=== PATIENT | male | born 1965 | race African-American/Black ===

== ENCOUNTER 2020-02-06 10:41 | Outpatient (CLI) | payer BC, SELFPAY ==
[2020-02-06 11:35] LABS: Basophils Percent Auto 0.7 % (0.2-1.2); Eosinophils Absolute Auto 0.1 K/mm3 (0-0.3); Eosinophils Percent Auto 1.8 % (0-4.4); Hematocrit 34.9 % (42.0-52.0); Hemoglobin 11.2 g/dL (14.0-18.0); Immature Granulocyte Absolute 0.01 K/mm3 (0.00-0.031); Immature Granulocyte Percent A 0.2 % (0-0.5); Lymphocytes Absolute Auto 1.17 K/mm3 (0.9-3.2); Lymphocytes Percent Auto 26.5 % (18.3-44.2); Mean Corpuscular HGB Conc 32.1 g/dl (32-36); Mean Corpuscular Hemoglobin 29.5 pg (26-34); Mean Corpuscular Volume 91.8 fl (80-100); Mean Platelet Volume 12.4 fl (7.4-10.4); Monocytes Absolute Auto 0.6 K/mm3 (0.1-0.6); Monocytes Percent Auto 12.9 % (2.6-8.5); Neutrophils Absolute Auto 2.6 K/mm3 (1.3-6.7); Neutrophils Percent Auto 57.9 % (45.5-73.1); Platelet Count Result 151 k/mm3 (150-375); Red Cell Distribution Width 14.1 % (11.5-14.5); White Blood Count 4.4 K/mm3 (4.5-10.0)
[2020-02-06 11:48] LABS: Alanine Aminotransferase 16 U/L (4-50); Alkaline Phosphatase 99 U/L (38-126); Anion Gap 7 mmol/L (8-16); Aspartate Amino Transferase 20 U/L (17-59); Bilirubin,Total 0.5 mg/dL (0.2-1.3); Blood Urea Nitrogen 71 mg/dL (9-20); Calcium 9.3 mg/dL (8.4-10.2); Carbon Dioxide 25 mmol/L (22-30); Chloride 108 mmol/L (98-107); Estimated Glomerular Filt Rate 38; Glucose 119 mg/dL (75-110); Potassium 4.9 mmol/L (3.4-5.0); Sodium 140 mmol/L (137-145)
== END 2020-02-06 10:42 | disposition home or self-care (01) ==
PROVIDERS: Visit Provider Internal Medicine Cardiovascular Disease
DX: I42.8 Other cardiomyopathies (principal)
CPT/HCPCS: 36415; 80053; 85025

== ENCOUNTER 2022-05-03 17:13 | Inpatient (IN) | payer BC, SELFPAY ==
[2022-05-03] VITALS (41 sets, daily range): BP systolic 119–179; BP diastolic 11–99; PULSE 62–95; RESP 14–25; TEMP 36.7–36.8; O2SAT 63–100
--- NOTE | ~2022-05-03 | CT_ITS ---
EXAMINATION: CTA chest PE protocol DATE: 05/03/2022 21:58 INDICATION: hypoxia, SOB TECHNIQUE: Computed tomography angiography (CTA) of the chest was performed with 100 mL Omnipaque-350 intravenous contrast timed to evaluate the pulmonary arteries. Coronal maximum intensity projection 3D-reconstructions were created by the technologist. The dose-length product (DLP) was 1066.65 mGy-cm . Automated exposure control and iterative reconstruction technique were employed. COMPARISON: None. FINDINGS: Lung parenchyma and airways: Significant motion artifact. Diffuse bilateral areas of groundglass opac ity with some areas of sparing. Interlobular septal thickening. Dependent atelectasis. Pleura: Moderate right and small left pleural fluid collections. Thoracic inlet, axillae and chest wall: Left chest pacer/fibrillator, with intact leads. Marked bilat eral gynecomastia. Subcutaneous edema in the chest. Thoracic aorta: Mild ectasia and arch calcification. Mediastinum: Dilated central pulmonary arteries, as can be seen with pulmonary arterial hypertension. Heart and pericardium: Marked cardiomegaly. Coronary artery calcifications: Mild. Upper abdomen: No significant finding. Bones: No acute osseous finding. Pulmonary arteries: Study quality: Mildly limited by motion artifact but overall diagnostic. No pulmo nary emboli detected. IMPRESSION: No CT evidence of acute pulmonary embolus. Marked cardiomegaly. Pulmonary edema. Reviewed, dictated and finalized at location [facility] IMPRESSION: No CT evidence of acute pulmonary embolus. Marked cardiomegaly. Pulmonary edema .
--- NOTE | 2022-05-03 17:39 | ECG_ITS ---
Measurements Intervals [place] Rate: 77 P: [place]: 0 QRS: -24 QRSD: 126 T: 101 QT: 384 QTc: 435 Interpretive Statements ATRIAL FIBRILLATION INCOMPLETE LEFT BUNDLE BRANCH BLOCK BORDERLINE ST-T WAVE ABNORMALITY- LAT/HIGH LAT LEADS ABNORMAL ECG NO PREVIOUS ECG AVAILABLE FOR COMPARISON Electronically Signed On 05-04-2022 6:48:19 PLATING TECHNICIAN by Daniel Mott D.O.
--- NOTE | 2022-05-03 17:39 | ED.GENADULT ---
HPI - General Adult General Chief complaint: Weakness Stated complaint: not able to care for self - low pulse ox Time Seen by Provider: 05/03/22 17:24 History of Present Illness HPI narrative: Patient is a 56-year-old male with a history of CHF, COPD, diabetes, HTN here for evaluation after a fall today. Patient was discharged from a rehab facility today where he resided for several weeks for care of wounds to his left lower extremity and coccyx. States he was discharged because of insurance coverage being denied. Shortly after getting back home, patient was attempting to stand up to go to the bathroom, felt weak in his lower extremities, causing him to fall down. Has not had his head or lose consciousness. Required EMS assistance, was brought to the hospital due to low oxygen sats in the 70s. He has no home oxygen requirement. Patient states that he has been coughing for few days but denies any shortness of breath, chest pain, fevers or chills. No abdominal pain, nausea, vomiting. Patient has a history of DVT and is on Coumadin. His computer network engineer is Dr. Melgoza. Related Data Allergies Allergy/AdvReac Type Severity Reaction Status Date / Time heparin Allergy Severe Other Verified 01/20/18 08:47 EGG SUBSTITUTE AdvReac Intermediate Itching Uncoded 01/20/18 08:47 Review of Systems Review of Systems: Gen.: Reports weakness. Denies fevers or chills Eyes: Denies eye pain or visual change ENT: Denies congestion Respiratory: Denies shortness of breath or cough CV: Denies chest pain or palpitations GI: Denies abdominal pain nausea, emesis or diarrhea denies burning, urgency, frequency or hematuria Musculoskeletal: Denies back pain or muscle pain Neuro: Denies numbness, tingling, weakness or focal weakness Skin: Reports wounds to left lower extremity and coccyx. Except as documented, all other systems reviewed and negative Exam Narrative: APPEARANCE: Chronically ill-appearing, obese Head: Normocephalic and atraumatic. EYES: PERRLA/EOMI, conjunctivae clear NOSE: No nasal drainage EARS: External ear normal in appearance THROAT: Oropharynx is clear. Mucous membranes are moist. NECK: Supple. No adenopathy, no masses. RESPIRATORY: Coughing throughout exam. Airway patent, respirations nonlabored. Clear to auscultation bilaterally, no rales, rhonchi, wheezing. CARDIOVASCULAR: Regular rate and rhythm without murmurs, rubs, or gallops. ABDOMINAL: Normoactive bowel sounds. Soft, nontender, nondistended. No rebound tenderness or guarding. MUSCULOSKELETAL: Nonpitting edema to bilateral lower extremities. Moves all extremities well. NEURO: Normal speech. No focal neurologic deficits. SKIN: Patient has a 2 x 3 cm wound to his left medial malleolus with no drainage and no surrounding erythema. Venous stasis changes to left lower extremity. Thickened toenails. PSYCHIATRIC: Normal affect/mood. Course Vital Signs Vital signs: Vital Signs Pulse Rate 80 05/03/22 17:33 Respiratory Rate 14 05/03/22 17:33 Blood Pressure 157/98 H 05/03/22 17:33 Pulse Oximetry 63 L 05/03/22 17:33 Temperature 97.3 F L 05/04/22 00:00 Pulse Rate 86 05/04/22 00:00 Respiratory Rate 16 05/04/22 00:00 Blood Pressure 158/98 H 05/04/22 00:00 Pulse Oximetry 96 05/04/22 00:00 Oxygen Delivery Room Air 05/03/22 17:34 Procedures Other Procedure Procedure 1: Other Procedure: ultrasound guided IV x 2 by MD Hurtado at 20:00, 05/03/2022 Medical Decision Making MDM Narrative Medical decision making narrative: 56-year-old male brought in by EMS for weakness after being discharged from his rehab facility today. Patient was admitted to the rehab facility for wound care and physical therapy. Here patient appears older than stated age and is chronically ill-appearing but nontoxic. He has chronic wounds to his left medial malleolus and coccyx that do not appear overtly infected. He is hypertensive, satting at the high 80s on room air and pat
[2022-05-03 18:23] LABS: Alveolar/Arterial O2 Gradient 34.5 mmHg; Base Excess ABG 9.6 mEq/l (+/-2.0); Fractional Inspired Oxygen 28 %; HCO3 ABG 36.9 mEq/l (22.0-26.0); Oxygen Content ABG 14.5 %vol (16.0-22.0); Oxygen Saturation ABG 96.2 % (95.0-100.0); Oxyhemoglobin 93.7 % THb (90.0-100.0); PO2 FiO2 Ratio Arterial Blood 3.14 %; Total Hemoglobin 10.9 g/dL (12.0-18.0); pH ABG 7.369 (7.350-7.450)
[2022-05-03 18:24] LABS: Device NASAL CANNULA; Modified Allen's Test Pass; PCO2 ABG 65.4 mmHg (35.0-45.0); Site Drawn RIGHT RADIAL
[2022-05-03 20:27] LABS: Hematocrit 35.5 % (42.0-52.0); Hemoglobin 9.9 g/dL (14.0-18.0); Mean Corpuscular HGB Conc 27.9 g/dl (32-36); Mean Corpuscular Hemoglobin 25.8 pg (26-34); Mean Corpuscular Volume 92.4 fl (80-100); Mean Platelet Volume 11.6 fl (7.4-10.4); Platelet Count Result 188 k/mm3 (150-375); Red Blood Count 3.84 M/mm3 (4.6-6.20); Red Cell Distribution Width 17.4 % (11.5-14.5); White Blood Count 4.7 K/mm3 (4.5-10.0)
[2022-05-03 20:36] LABS: INR 2.4
[2022-05-03 20:37] LABS: Partial Thromboplastin Time 42.1 SECONDS (22.3-36.8)
[2022-05-03 20:43] LABS: Influenza A QL RT-PCR Negative (Negative); Influenza B QL RT-PCR Negative (Negative); SARS-CoV-2 RNA PCR Negative
[2022-05-03 20:46] LABS: NT Pro B Type Natriuretic Pept 8630 pg/mL (5-100)
[2022-05-03 20:58] LABS: Anisocytosis 2+ (NORMAL); Band Neutrophils Percent 1 % (0-6); Eosinophils Absolute Manual 0.18 K/mm3 (0.02-0.5); Eosinophils Percent Manual 4 % (0-4); Macrocytosis 1+ (NORMAL); Microcytosis 2+ (NORMAL); Monocytes Absolute Manual 0.32 K/mm3 (0.1-0.90); Monocytes Percent Manual 7 % (3-9); Myelocytes Percent 2 %; Neutrophils Absolute Manual 3.38 K/mm3 (1.3-6.7); Neutrophils Percent Manual 71 % (46-73); Platelet Estimate Adequate (Adequate); Poikilocytosis 2+ (NORMAL); Total Cells Counted 100
[2022-05-03 20:59] LABS: Ovalocytes 1+ (NORMAL); Schistocytes None Seen (NORMAL); Spherocytes 1+ (NORMAL)
[2022-05-03 21:00] LABS: Atypical Lymphocytes Present; Hypochromasia 2+ (NORMAL); Stomatocytes 1+ (NORMAL)
[2022-05-03 21:39] LABS: Alanine Aminotransferase 11 U/L (6-50); Albumin Level 3.7 g/dL (3.5-5.1); Alkaline Phosphatase 80 U/L (38-126); Anion Gap 11 mmol/L (8-16); Aspartate Amino Transferase 18 U/L (17-59); Bilirubin,Total 0.7 mg/dL (0.2-1.3); Blood Urea Nitrogen 27 mg/dL (9-20); Calcium 8.5 mg/dL (8.4-10.2); Carbon Dioxide 37 mmol/L (22-30); Chloride 97 mmol/L (98-107); Estimated CRCL calculation 84 ml/min; Estimated Glomerular Filt Rate > 60; Glucose 107 mg/dL (65-110); Potassium 3.7 mmol/L (3.4-5.0); Sodium 145 mmol/L (137-145)
[2022-05-03] MEDS: FUROSEMIDE INJ 40 MG/4 ML VIAL IV PUSH (22:48)
[2022-05-03 23:02] LABS: Troponin I 0.035 ng/mL (0.000-0.034)
[2022-05-04] VITALS (23 sets, daily range): BP systolic 125–166; BP diastolic 76–104; PULSE 55–114; RESP 16–20; TEMP 35.8–36.8; O2SAT 91–100
--- NOTE | 2022-05-04 | ECHO_ITS ---
Patient Info Name: Johnnie Wilson Age: 56 years : 1965 Gender: Male Ht: 74 in Wt: 308 lbs BSA: 2.75 m2 HR: 66 bpm BP: 142 / 76 mmHg Heart Rhythm: Atrial Fibrillation Technical Quality: Fair Exam Date: 05/04/2022 1:11 PM Exam Location: [facility] Patient Status: Outpatient Admit Date: 05/03/2022 Staff Ordering Physician: Robert So Communications Coordinator: Fernanda Garcia RDCS Attending Provider: Danyel Turner MD Referring Physician: Judah ARROYO; Exam Type: CA echo dop color flow w con Study Info Indications - fluid status, low saturation, pulm edema Complete two-dimensional, color flow and Doppler transthoracic echocardiogram is performed with contrast to opacify the left ventricle and to improve the deliniation of the left ventricle endocardial borders. Contrast/Agitated Saline Contrast/Ag. Saline: Definity Amount: 3.00 ml Administered By: Fernanda Garcia RDCS Existing IV Access: Yes IV Access Condition: patent with no signs of infiltration Summary 1. Left ventricular systolic function is mildly reduced, estimated at 45-50%. 2. There is mildly increased left ventricular wall thickness. 3. Right ventricular systolic function is normal. 4. Left atrial chamber dimension is moderately enlarged. 5. Right atrial chamber dimension is moderately enlarged. 6. There is mild tricuspid valve regurgitation. 7. Dilated inferior vena cava with no collapse upon inspiration consistent with elevated right atrial pressure, 15 mmHg. 8. The aortic root size at the sinus of Valsalva is mildly dilated. Left Ventricle Left ventricular chamber dimension is moderately enlarged. Left ventricular systolic function is mildly reduced, estimated at 45-50%. There is mildly increased left ventricular wall thickness. Right Ventricle Right ventricular chamber dimension is normal. Right ventricular systolic function is normal. Left Atria Left atrial chamber dimension is moderately enlarged. Right Atria Right atrial chamber dimension is moderately enlarged. Atrial Septum Intact interatrial septum visualized by color flow imaging. Aortic Valve The aortic valve is not well visualized. There is no aortic valve stenosis. There is no aortic valve regurgitation. There is moderate aortic valve calcification. Pulmonic Valve The pulmonic valve is not well visualized. Mitral Valve The mitral valve has normal leaflets. There is no mitral valve stenosis. There is trace mitral valve regurgitation. Tricuspid Valve The tricuspid valve leaflets are normal. There is no significant tricuspid valve stenosis. There is mild tricuspid valve regurgitation. Pericardium/Pleural There is no pericardial effusion. Inferior Vena Cava Dilated inferior vena cava with no collapse upon inspiration consistent with elevated right atrial pressure, 15 mmHg. Aorta The aortic root size at the sinus of Valsalva is mildly dilated. Left Ventricular Outflow Tract Name Value Normal LVOT 2D LVOT Diameter 2.44 cm LVOT Doppler LVOT Peak Gradient
[2022-05-04 00:44] LABS: Troponin I 0.035 ng/mL (0.000-0.034)
--- NOTE | 2022-05-04 02:23 | PC.NURSE ---
pt has unstageable ulcer to left heel, and healing pressure ulcer to left buttocks. Pt reports has been following wound care
--- NOTE | 2022-05-04 03:11 | ADMGEN ---
This patient, Johnnie Wilson, was admitted to Medical Room 240-. Patient/family oriented to hospital policies and general routines including ID bracelet, bed and alarms, visiting hours, pain management, procedures, bathroom and other care routines, personal items, smoking policy, room service/diet, and visiting hours. Information on how to activate the Rapid Response Team has been discussed. Patient/Family are encouraged to report perceived risks to care and to ask questions if they do not understand what they are told or what they should do.
[2022-05-04 05:57] LABS: INR 2.3; Prothrombin Time 24.6 Seconds (11.1-14.7)
[2022-05-04 08:18] LABS: Basophils Percent Auto 0.8 % (0.2-1.2); Eosinophils Absolute Auto 0.1 K/mm3 (0-0.3); Eosinophils Percent Auto 2.6 % (0-4.4); Hematocrit 40.1 % (42.0-52.0); Hemoglobin 10.8 g/dL (14.0-18.0); Immature Granulocyte Absolute 0.03 K/mm3 (0.00-0.031); Immature Granulocyte Percent A 0.8 % (0-0.5); Lymphocytes Absolute Auto 0.67 K/mm3 (0.9-3.2); Lymphocytes Percent Auto 17.6 % (18.3-44.2); Mean Corpuscular HGB Conc 26.9 g/dl (32-36); Mean Corpuscular Hemoglobin 25.5 pg (26-34); Mean Corpuscular Volume 94.8 fl (80-100); Monocytes Absolute Auto 0.6 K/mm3 (0.1-0.6); Monocytes Percent Auto 15.3 % (2.6-8.5); Neutrophils Absolute Auto 2.4 K/mm3 (1.3-6.7); Neutrophils Percent Auto 62.9 % (45.5-73.1); Platelet Count Result 165 k/mm3 (150-375); Red Blood Count 4.23 M/mm3 (4.6-6.20); Red Cell Distribution Width 17.7 % (11.5-14.5); White Blood Count 3.8 K/mm3 (4.5-10.0)
[2022-05-04 08:21] LABS: Iron 48 ug/dL (49-181)
[2022-05-04 08:23] LABS: Alanine Aminotransferase 10 U/L (6-50); Albumin Level 3.8 g/dL (3.5-5.1); Alkaline Phosphatase 90 U/L (38-126); Anion Gap 11 mmol/L (8-16); Aspartate Amino Transferase 18 U/L (17-59); Bilirubin,Total 0.9 mg/dL (0.2-1.3); Blood Urea Nitrogen 28 mg/dL (9-20); Calcium 8.6 mg/dL (8.4-10.2); Carbon Dioxide 33 mmol/L (22-30); Chloride 100 mmol/L (98-107); Estimated CRCL calculation 90 ml/min; Estimated Glomerular Filt Rate > 60; Glucose 88 mg/dL (65-110); Potassium 3.9 mmol/L (3.4-5.0); Sodium 144 mmol/L (137-145)
[2022-05-04 08:31] LABS: Percent Iron Saturation 15 % (20-50)
[2022-05-04] MEDS: allopurinoL 100 MG TABLET PO ×2 (08:44→16:37)
[2022-05-04] MEDS: AMIODARONE HCL 200 MG TABLET PO (08:44)
[2022-05-04] MEDS: SACUBITRIL/VALSARTAN 24-26 MG TABLET 1 TAB PO (08:44)
[2022-05-04] MEDS: carvediloL 12.5 MG TABLET PO (08:44)
[2022-05-04] MEDS: FUROSEMIDE INJ 40 MG/4 ML VIAL IV PUSH ×2 (08:44→16:37)
[2022-05-04] MEDS: DIGOXIN TAB 125 MCG TABLET PO (08:44)
[2022-05-04 08:48] LABS: Transferrin 224 mg/dL (206-381)
[2022-05-04 09:00] LABS: Platelet Estimate Adequate (Adequate)
[2022-05-04 09:01] LABS: Anisocytosis 1+ (NORMAL); Ovalocytes 1+ (NORMAL); Schistocytes None Seen (NORMAL)
[2022-05-04 09:22] LABS: Hemoglobin A1C 5.6 % (<5.7)
--- NOTE | 2022-05-04 09:30 | PM.IMHP ---
H&P: HPI History of Present Illness Date/Time: 05/04/22 0930 Chief Complaint: Weakness Narrative: Patient is a 56-year-old male with a past medical history of diabetes, DVT, AFib, CHF, hypertension who presented to the ED for complaints of weakness. Upon arrival to the ED was noted the patient did have a saturation in the 70s and was placed on 2 L nasal cannula. Patient is a very poor historian and does not know exactly what happened so most of the history taken out of the electronic records. According to the ED note patient had a fall yesterday trying to get out of bed to go to the bathroom. Patient does admit to the fall and states that he has been weak lately. Is also noted that he has a wound on his coccyx. Patient did state that he does work hard to try to get around but he has not been able to move much. He denied any chest pain, shortness a breath, nausea, vomiting, diarrhea, constipation, lightheadedness, dizziness, abdominal pain, numbness, tingling, urinary frequency urinary incontinence. The CT in the ED did show pulmonary edema. BNP is elevated greater than 8000. He is noted to have a little bit of anemia and iron was noted to be a little low. ABG did show metabolic acidosis. Patient is on 2 L nasal cannula at this time patient is being admitted to the hospitalist service under observation Review of Systems Review of Systems: All systems reviewed & are unremarkable except as noted in HPI and below PMFSH Past Medical History Medical History Afib CHF (congestive heart failure) Chronic anticoagulation Diabetes DVT (deep venous thrombosis) Gout Hypertension Family History Family History (Updated 05/04/22 @ 12:10 by HUMBERTO Moore) Father Acute myocardial infarction Sibling History of blood clots Mother Hypertension Cerebrovascular accident Social History Social History (Updated 05/04/22 @ 12:11 by HUMBERTO Moore) Social History: patient currently lives at home with his they have had 3 kids together. His Kyra is his surrogate. He wishes to be a full code at this time and denies any pets. Smoking status: Never smoker Alcohol intake: never Substance use: never Has the Lack of Transportation Kept You From Medical Appointments or From Getting Medications?: Yes Within the Past 12 Months, Were You Worried Whether Your Food Would Run Out Before You Got Money to Buy More?: Never True What is Your Housing Situation Today?: I Have Housing Are You Worried That in the Next 2 Months, You May Not Have Your Own Housing to Live In?: No Do You Have Trouble Paying Your Heating Or Electricity Bill?: No Do You Have Trouble Paying For Medicines?: No Are You Currently Unemployed and Looking for Work?: No Highest Level of Education Completed: Bachelor's Degree Do You Have Trouble With Childcare or the Care of a Family Member?: No Living arrangements: with family Occupation/Education: other Gender identity (if verbalized by the patient): Male Sexual Orientation (if Verbalized by the Patient): Straight or Heterosexual Spiritual care concerns: No Agree to blood products: Yes Meds Home Medications and Allergies Home Medications Medication Instructions Recorded Confirmed Type allopurinol 100 mg tablet 100 mg PO BID 05/04/22 05/04/22 History amiodarone 200 mg tablet 200 mg PO DAILY 05/04/22 05/04/22 History carvedilol 25 mg tablet 12.5 mg PO DAILY 05/04/22 05/04/22 History digoxin 125 mcg (0.125 mg) tablet 125 mcg PO DAILY 05/04/22 05/04/22 History furosemide 40 mg tablet 40 mg PO DAILY 05/04/22 05/04/22 History sacubitril 24 mg-valsartan 26 mg 1 tablet PO DAILY 05/04/22 05/04/22 History tablet (Entresto) warfarin 1 mg tablet 1 mg PO DAILY 05/04/22 05/04/22 History warfarin 5 mg tablet 5 mg PO DAILY 05/04/22 05/04/22 History Allergies Allergy/AdvReac Type Severity Reaction Status Date / T
[2022-05-04 09:45] LABS: Folic Acid 7.4 ng/mL (2.76->20)
[2022-05-04 10:33] LABS: Glucose Point of Care 88 mg/dl (65-105)
[2022-05-04] MEDS: FERROUS SULFATE 324 MG TABLET PO ×2 (11:00→16:37)
[2022-05-04] MEDS: DOCUSATE SODIUM 100 MG CAPSULE PO ×2 (11:00→20:13)
[2022-05-04] MEDS: polyethylene glycoL 3350 17 GM POWD.PACK PO (11:01)
[2022-05-04 12:29] LABS: Glucose Point of Care 100 mg/dl (65-105)
[2022-05-04] MEDS: PERFLUTREN LIPID MICROSPHERES 1.5 ML VIAL DILUTED TO 10 ML TOTAL VOLUME IV PUSH (13:52)
--- NOTE | 2022-05-04 13:53 | IVDEFINITY ---
Prior to administration of IV Definity the patient was educated on the risks and benefits of the imaging enhancing agent including potential adverse side effects. The patient verbalized understanding. Allergies were verified. No exclusion criteria were identified and at least one of the following inclusion criteria were met: 1) physician request, 2) patient technically difficult to image (per the [place] [employer]ch[employer] guidelines of two or more segments not discernable within the apical view), or 3) questionable left ventricular function. ?
--- NOTE | 2022-05-04 14:29 | PCOTNOTE ---
Attempted to see pt. for occupational therapy evaluation. Unable to see at this time as pt. currently working with physical therapy. Nursing aware. Following.
[2022-05-04] MEDS: SILVERGEL (ELTA) 45 ML 1 APPLIC TOPICAL (16:37)
[2022-05-04] MEDS: WARFARIN (*PBKC) 1 MG TABLET PO (16:38)
[2022-05-04] MEDS: WARFARIN (*PBKC) 5 MG TABLET PO (16:38)
[2022-05-04 17:03] LABS: Glucose Point of Care 75 mg/dl (65-105)
[2022-05-04 19:46] LABS: Glucose Point of Care 127 mg/dl (65-105)
[2022-05-05] VITALS (13 sets, daily range): BP systolic 127–142; BP diastolic 68–88; PULSE 55–84; RESP 18–20; TEMP 36.1–37.1; O2SAT 91–100; BMI 39.6
[2022-05-05 06:07] LABS: Basophils Percent Auto 0.6 % (0.2-1.2); Eosinophils Absolute Auto 0.2 K/mm3 (0-0.3); Eosinophils Percent Auto 4.8 % (0-4.4); Hematocrit 35.5 % (42.0-52.0); Hemoglobin 9.6 g/dL (14.0-18.0); Immature Granulocyte Absolute 0.02 K/mm3 (0.00-0.031); Immature Granulocyte Percent A 0.6 % (0-0.5); Lymphocytes Absolute Auto 0.63 K/mm3 (0.9-3.2); Lymphocytes Percent Auto 20.3 % (18.3-44.2); Mean Corpuscular Volume 96.2 fl (80-100); Mean Platelet Volume 11.8 fl (7.4-10.4); Monocytes Absolute Auto 0.6 K/mm3 (0.1-0.6); Monocytes Percent Auto 18.4 % (2.6-8.5); Neutrophils Absolute Auto 1.7 K/mm3 (1.3-6.7); Neutrophils Percent Auto 55.3 % (45.5-73.1); Platelet Count Result 164 k/mm3 (150-375); Red Blood Count 3.69 M/mm3 (4.6-6.20); Red Cell Distribution Width 17.2 % (11.5-14.5); White Blood Count 3.1 K/mm3 (4.5-10.0)
[2022-05-05 06:13] LABS: Alanine Aminotransferase 9 U/L (6-50); Albumin Level 3.4 g/dL (3.5-5.1); Alkaline Phosphatase 76 U/L (38-126); Aspartate Amino Transferase 14 U/L (17-59); Bilirubin,Total 0.7 mg/dL (0.2-1.3); Blood Urea Nitrogen 24 mg/dL (9-20); Calcium 8.4 mg/dL (8.4-10.2); Carbon Dioxide > 40 mmol/L (22-30); Chloride 97 mmol/L (98-107); Estimated CRCL calculation 90 ml/min; Estimated Glomerular Filt Rate > 60; Glucose 105 mg/dL (65-110); Magnesium 1.9 mg/dL (1.6-2.3); Potassium 3.8 mmol/L (3.4-5.0); Sodium 147 mmol/L (137-145)
[2022-05-05 07:44] LABS: Anisocytosis 1+ (NORMAL); Hypochromasia 1+ (NORMAL); Ovalocytes 1+ (NORMAL); Platelet Estimate Adequate (Adequate)
[2022-05-05] MEDS: AMIODARONE HCL 200 MG TABLET PO (08:09)
[2022-05-05] MEDS: polyethylene glycoL 3350 17 GM POWD.PACK PO (08:09)
[2022-05-05] MEDS: allopurinoL 100 MG TABLET PO ×2 (08:09→18:15)
[2022-05-05] MEDS: FUROSEMIDE INJ 40 MG/4 ML VIAL IV PUSH ×2 (08:09→18:15)
[2022-05-05] MEDS: DOCUSATE SODIUM 100 MG CAPSULE PO ×2 (08:09→19:46)
[2022-05-05] MEDS: SILVERGEL (ELTA) 45 ML 1 APPLIC TOPICAL (08:10)
[2022-05-05] MEDS: DIGOXIN TAB 125 MCG TABLET PO (08:10)
[2022-05-05] MEDS: carvediloL 12.5 MG TABLET PO (08:10)
[2022-05-05] MEDS: FERROUS SULFATE 324 MG TABLET PO ×2 (08:10→18:15)
[2022-05-05] MEDS: SACUBITRIL/VALSARTAN 24-26 MG TABLET 1 TAB PO (08:10)
[2022-05-05 08:54] LABS: Glucose Point of Care 76 mg/dl (65-105)
[2022-05-05 10:57] LABS: Schistocytes None Seen (NORMAL)
--- NOTE | 2022-05-05 11:28 | P.PNIM_ITS ---
Progress Note: A&P Assessment and Plan (1) Acute exacerbation of CHF (congestive heart failure): Code(s): I50.9 - Heart failure, unspecified Status: Acute Assessment and Plan: * Current BNP 8630 as of yesterday. * [place] flat * Saturations noted to be in the 70s on arrival, now stable on 2L supplemental oxygen per NC. * Daily weight for today was not recorded. Will stress importance to nursing staff. * Lasix 40mg IV BID * Trend daily weight * Probable combined acute on chronic systolic and diastolic heart failure * Current exacerbation noted * CT indicates pulmonary edema * Trend urine output * Echo demonstrated decreased systolic function with EF of 45-50%, and increased atrial pressure at 15 mm Hg. Conitnue diuresis efforts. (2) Acute respiratory failure: Code(s): J96.00 - Acute respiratory failure, unspecified whether with hypoxia or hypercapnia Status: Acute Assessment and Plan: * Saturation noted to be in the 70s upon arrival to the ED with complaints tripoding, shortness of breath, unable to complete sentences * CTA shows no PE, pulm edema * ABG shows compensated metabolic acidosis * Lasix given in the ED * Continue lasix, monitor and trend weight and I&O's. * Trend respiratory status * Wean supplemental oxygen to maintain saturations >90% (3) Fall: Code(s): W19.XXXA - Unspecified fall, initial encounter Status: Acute Assessment and Plan: * Reported fall at home * PT/OT * Orthostatic BP * Fall precautions * Placement (4) Weakness: Code(s): R53.1 - Weakness Status: Acute Assessment and Plan: * PT/OT * Baseline appears to be WC dependent. * Continue to work with patient (5) Anemia: Code(s): D64.9 - Anemia, unspecified Status: Acute Assessment and Plan: * H/H appears to be low at 10.8/40.1 * Anemia labs iron 48, TIBC 526, transferrin 224, % saturation 15 ferritin 59.50 B12 442, folate 7.4,, * appears to be an anemia iron deficiency * start ferrous sulfate 324 mg b.i.d. * add Colace and MiraLax * Will await more information to determine type * Trend H/H * Adjust therapy as indicated * Transfuse if less than 7 (6) Afib: Code(s): I48.91 - Unspecified atrial fibrillation Status: Acute Assessment and Plan: * EKG shows afib with controlled rate * Continue home amiodarone, digoxin, carvedilol * Trend heart rate * Telemonitor * Adjust therapy as indicated * 8[employer] Grade Teacher is Dr. Melgoza * Echocardiogram was performed and demonstrated decreased systolic function an ejection fraction of 45-50 and increased right atrial pressure. * consider consulting Cardiology if unable to adequately diurese this patient. (7) Diabetes: Code(s): E11.9 - Type 2 diabetes mellitus without complications Status: Acute Assessment and Plan: * Current glucose is 107 * Accu-Chek AC/HS * ISS * Trend glucose * A1c 5.6 * Adjust therapy as indicated * hypoglycemia protocol * Diabetic diet (8) Hypertension: Code(s): I10 - Essential (primary) hypertension Status: Acute Assessment and Plan: * Current BP is 142/76 * Continue amiodarone, carvedilol, digoxin, and entresto * Trend BP * Adjust therapy as indicated (9) Chronic anticoagulation: Code(s): Z79.01 - long term care social worker (current) use of anticoagulants Status: Acute Assessment and Plan: * On warfarin for DVT, and most likely afib *
--- NOTE | 2022-05-05 11:28 | PM.IMPN ---
Progress Note: A&P Assessment and Plan (1) Acute exacerbation of CHF (congestive heart failure): Code(s): I50.9 - Heart failure, unspecified Status: Acute Assessment and Plan: Current BNP 8630 as of yesterday. [place] flat Saturations noted to be in the 70s on arrival, now stable on 2L supplemental oxygen per NC. Daily weight for today was not recorded. Will stress importance to nursing staff. Lasix 40mg IV BID Trend daily weight Probable combined acute on chronic systolic and diastolic heart failure Current exacerbation noted CT indicates pulmonary edema Trend urine output Echo demonstrated decreased systolic function with EF of 45-50%, and increased atrial pressure at 15 mm Hg. Conitnue diuresis efforts. (2) Acute respiratory failure: Code(s): J96.00 - Acute respiratory failure, unspecified whether with hypoxia or hypercapnia Status: Acute Assessment and Plan: Saturation noted to be in the 70s upon arrival to the ED with complaints tripoding, shortness of breath, unable to complete sentences CTA shows no PE, pulm edema ABG shows compensated metabolic acidosis Lasix given in the ED Continue lasix, monitor and trend weight and I&O's. Trend respiratory status Wean supplemental oxygen to maintain saturations >90% (3) Fall: Code(s): W19.XXXA - Unspecified fall, initial encounter Status: Acute Assessment and Plan: Reported fall at home PT/OT Orthostatic BP Fall precautions Placement (4) Weakness: Code(s): R53.1 - Weakness Status: Acute Assessment and Plan: PT/OT Baseline appears to be WC dependent. Continue to work with patient (5) Anemia: Code(s): D64.9 - Anemia, unspecified Status: Acute Assessment and Plan: H/H appears to be low at 10.8/40.1 Anemia labs iron 48, TIBC 526, transferrin 224, % saturation 15 ferritin 59.50 B12 442, folate 7.4,, appears to be an anemia iron deficiency start ferrous sulfate 324 mg b.i.d. add Colace and MiraLax Will await more information to determine type Trend H/H Adjust therapy as indicated Transfuse if less than 7 (6) Afib: Code(s): I48.91 - Unspecified atrial fibrillation Status: Acute Assessment and Plan: EKG shows afib with controlled rate Continue home amiodarone, digoxin, carvedilol Trend heart rate Telemonitor Adjust therapy as indicated Aluminizer is Dr. Melgoza Echocardiogram was performed and demonstrated decreased systolic function an ejection fraction of 45-50 and increased right atrial pressure. consider consulting Cardiology if unable to adequately diurese this patient. (7) Diabetes: Code(s): E11.9 - Type 2 diabetes mellitus without complications Status: Acute Assessment and Plan: Current glucose is 107 Accu-Chek AC/HS ISS Trend glucose A1c 5.6 Adjust therapy as indicated hypoglycemia protocol Diabetic diet (8) Hypertension: Code(s): I10 - Essential (primary) hypertension Status: Acute Assessment and Plan: Current BP is 142/76 Continue amiodarone, carvedilol, digoxin, and entresto Trend BP Adjust therapy as indicated (9) Chronic anticoagulation: Code(s): Z79.01 - group home (current) use of anticoagulants Status: Acute Assessment and Plan: On warfarin for DVT, and most likely afib Trend INR Adjust warfarin when appropriate INR currently 2.3 Trend INR and adjust accordingly. Time Spent With Patient Time with patient: 15 - 25 minutes Subjective Date/time seen: 05/05/22 11:28 This patient was examined at the bedside today in interval assessment after being admitted to the hospital with heart failure exacerbation. He is currently receiving IV Lasix with attempt to diurese and ultimately removed supplemental oxygen that he required upon presentation. His intake over the past 24 hours is 982 an
[2022-05-05 12:03] LABS: INR 2.7; Prothrombin Time 28.1 Seconds (11.1-14.7)
[2022-05-05 12:21] LABS: Glucose Point of Care 117 mg/dl (65-105)
--- NOTE | 2022-05-05 14:37 | PC.NURSE ---
On 05/05/22, the student, [Mary Keenan], provided care and completed [facility] documentation on this patient. I have reviewed the student's documentation and agree with the findings.
[2022-05-05 17:08] LABS: Glucose Point of Care 82 mg/dl (65-105)
[2022-05-05] MEDS: WARFARIN (*PBKC) 5 MG TABLET PO (19:01)
[2022-05-05] MEDS: WARFARIN (*PBKC) 1 MG TABLET PO (19:02)
[2022-05-05 19:47] LABS: Glucose Point of Care 149 mg/dl (65-105)
[2022-05-06] VITALS (12 sets, daily range): BP systolic 117–149; BP diastolic 72–81; PULSE 50–74; RESP 16–20; TEMP 36.6–36.7; O2SAT 92–100
[2022-05-06 06:51] LABS: INR 2.7; Prothrombin Time 27.7 Seconds (11.1-14.7)
[2022-05-06 07:01] LABS: Alanine Aminotransferase 8 U/L (6-50); Albumin Level 3.2 g/dL (3.5-5.1); Alkaline Phosphatase 71 U/L (38-126); Aspartate Amino Transferase 13 U/L (17-59); Bilirubin,Total 0.6 mg/dL (0.2-1.3); Blood Urea Nitrogen 23 mg/dL (9-20); Calcium 8.3 mg/dL (8.4-10.2); Carbon Dioxide > 40 mmol/L (22-30); Chloride 96 mmol/L (98-107); Estimated CRCL calculation 118 ml/min; Estimated Glomerular Filt Rate > 60; Glucose 82 mg/dL (65-110); Magnesium 1.9 mg/dL (1.6-2.3); Potassium 3.3 mmol/L (3.4-5.0); Sodium 147 mmol/L (137-145)
[2022-05-06 08:25] LABS: Basophils Percent Auto 0.3 % (0.2-1.2); Eosinophils Absolute Auto 0.2 K/mm3 (0-0.3); Eosinophils Percent Auto 5.6 % (0-4.4); Hematocrit 31.8 % (42.0-52.0); Hemoglobin 8.6 g/dL (14.0-18.0); Immature Granulocyte Absolute 0.01 K/mm3 (0.00-0.031); Immature Granulocyte Percent A 0.3 % (0-0.5); Lymphocytes Absolute Auto 0.79 K/mm3 (0.9-3.2); Lymphocytes Percent Auto 24.6 % (18.3-44.2); Mean Corpuscular Hemoglobin 25.8 pg (26-34); Mean Corpuscular Volume 95.5 fl (80-100); Mean Platelet Volume 12.1 fl (7.4-10.4); Monocytes Absolute Auto 0.6 K/mm3 (0.1-0.6); Monocytes Percent Auto 17.8 % (2.6-8.5); Neutrophils Absolute Auto 1.7 K/mm3 (1.3-6.7); Neutrophils Percent Auto 51.4 % (45.5-73.1); Platelet Count Result 146 k/mm3 (150-375); Red Blood Count 3.33 M/mm3 (4.6-6.20); Red Cell Distribution Width 17.2 % (11.5-14.5); White Blood Count 3.2 K/mm3 (4.5-10.0)
[2022-05-06 08:28] LABS: Glucose Point of Care 83 mg/dl (65-105)
[2022-05-06] MEDS: polyethylene glycoL 3350 17 GM POWD.PACK PO (09:42)
[2022-05-06] MEDS: FUROSEMIDE INJ 40 MG/4 ML VIAL IV PUSH (09:42)
[2022-05-06] MEDS: allopurinoL 100 MG TABLET PO ×2 (09:42→16:49)
[2022-05-06] MEDS: DOCUSATE SODIUM 100 MG CAPSULE PO ×2 (09:42→19:59)
[2022-05-06] MEDS: AMIODARONE HCL 200 MG TABLET PO (09:42)
[2022-05-06] MEDS: FERROUS SULFATE 324 MG TABLET PO ×2 (09:43→16:49)
[2022-05-06] MEDS: SACUBITRIL/VALSARTAN 24-26 MG TABLET 1 TAB PO (09:43)
[2022-05-06] MEDS: DIGOXIN TAB 125 MCG TABLET PO (09:43)
[2022-05-06] MEDS: POTASSIUM CHLORIDE 20 MEQ TABLET PO (09:43)
[2022-05-06] MEDS: carvediloL 12.5 MG TABLET PO (09:43)
[2022-05-06] MEDS: SILVERGEL (ELTA) 45 ML 1 APPLIC TOPICAL (09:44)
[2022-05-06 11:58] LABS: Glucose Point of Care 118 mg/dl (65-105)
--- NOTE | 2022-05-06 16:31 | P.PNIM_ITS ---
Progress Note: A&P Assessment and Plan (1) Acute respiratory failure: Code(s): J96.00 - Acute respiratory failure, unspecified whether with hypoxia or hypercapnia Status: Acute Assessment and Plan: Saturation noted to be in the 70s upon arrival to the ED with shortness of breath, inability to complete sentences, and tripoding noted on physical exam * CTA shows no PE with evidence of pulm edema * ABG shows compensated metabolic acidosis * felt to be secondary to acute CHF exacerbation. See plan below * currently requiring 2 L supplemental O2 and maintaining adequate O2 saturations. Wean oxygen to goal 90% or above (2) Acute exacerbation of CHF (congestive heart failure): Qualifiers: Heart failure type: systolic Qualified Code(s): I50.23 - Acute on chronic systolic (congestive) heart failure Code(s): I50.9 - Heart failure, unspecified Status: Acute Assessment and Plan: presented with acute shortness of breath felt to be secondary to acute CHF * evidence of cardiomegaly and pulmonary edema on CTA * BNP elevated at 8600 * echocardiogram revealed mildly reduced EF of 45-50% with a moderately enlarged left and right atrial chamber and elevated right atrial pressure * has been diuresed with symptomatic improvement * decrease Lasix to 40 mg IV daily * consider transition to p.o. Lasix tomorrow if continued improvement * monitor intake and output and daily weights * heart healthy diet (3) Fall: Code(s): W19.XXXA - Unspecified fall, initial encounter Status: Acute Assessment and Plan: patient had a fall at home * was just released from rehab and felt that he was not ready to return home, however insurance was not providing any further rehab days * no precipitating symptoms. Did not if his head or lose consciousness. Likely due to persistent weakness * appreciate PT evals * fall precautions implemented (4) Weakness: Code(s): R53.1 - Weakness Status: Acute Assessment and Plan: Please see above (5) Anemia: Code(s): D64.9 - Anemia, unspecified Status: Acute Assessment and Plan: H&H with slight decline during admission * No active bleeding * Labs are consistent with iron deficiency anemia * Continue ferrous sulfate 324 mg BID * Will check fecal occult blood test (6) Afib: Code(s): I48.91 - Unspecified atrial fibrillation Status: Acute Assessment and Plan: Rate is controlled. * Continue home amiodarone, digoxin, carvedilol * Continue warfarin. (7) Diabetes: Code(s): E11.9 - Type 2 diabetes mellitus without complications Status: Acute Assessment and Plan: A1c 5.6. * patient is insulin hypoglycemic agents. Appropriately managed with dietary and lifestyle * continue Accu-Cheks, low-dose sliding scale, hypoglycemic protocol (8) Hypertension: Code(s): I10 - Essential (primary) hypertension Status: Acute Assessment and Plan: blood pressures have been stable. 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
--- NOTE | 2022-05-06 16:31 | PM.IMPN ---
Progress Note: A&P Assessment and Plan (1) Acute respiratory failure: Code(s): J96.00 - Acute respiratory failure, unspecified whether with hypoxia or hypercapnia Status: Acute Assessment and Plan: Saturation noted to be in the 70s upon arrival to the ED with shortness of breath, inability to complete sentences, and tripoding noted on physical exam CTA shows no PE with evidence of pulm edema ABG shows compensated metabolic acidosis felt to be secondary to acute CHF exacerbation. See plan below currently requiring 2 L supplemental O2 and maintaining adequate O2 saturations. Wean oxygen to goal 90% or above (2) Acute exacerbation of CHF (congestive heart failure): Qualifiers: Heart failure type: systolic Qualified Code(s): I50.23 - Acute on chronic systolic (congestive) heart failure Code(s): I50.9 - Heart failure, unspecified Status: Acute Assessment and Plan: presented with acute shortness of breath felt to be secondary to acute CHF evidence of cardiomegaly and pulmonary edema on CTA BNP elevated at 8600 echocardiogram revealed mildly reduced EF of 45-50% with a moderately enlarged left and right atrial chamber and elevated right atrial pressure has been diuresed with symptomatic improvement decrease Lasix to 40 mg IV daily consider transition to p.o. Lasix tomorrow if continued improvement monitor intake and output and daily weights heart healthy diet (3) Fall: Code(s): W19.XXXA - Unspecified fall, initial encounter Status: Acute Assessment and Plan: patient had a fall at home was just released from rehab and felt that he was not ready to return home, however insurance was not providing any further rehab days no precipitating symptoms. Did not if his head or lose consciousness. Likely due to persistent weakness appreciate PT evals fall precautions implemented (4) Weakness: Code(s): R53.1 - Weakness Status: Acute Assessment and Plan: Please see above (5) Anemia: Code(s): D64.9 - Anemia, unspecified Status: Acute Assessment and Plan: H&H with slight decline during admission No active bleeding Labs are consistent with iron deficiency anemia Continue ferrous sulfate 324 mg BID Will check fecal occult blood test (6) Afib: Code(s): I48.91 - Unspecified atrial fibrillation Status: Acute Assessment and Plan: Rate is controlled. Continue home amiodarone, digoxin, carvedilol Continue warfarin. (7) Diabetes: Code(s): E11.9 - Type 2 diabetes mellitus without complications Status: Acute Assessment and Plan: A1c 5.6. patient is insulin hypoglycemic agents. Appropriately managed with dietary and lifestyle continue Accu-Cheks, low-dose sliding scale, hypoglycemic protocol (8) Hypertension: Code(s): I10 - Essential (primary) hypertension Status: Acute Assessment and Plan: blood pressures have been stable. 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 Patient is feeling improved today. He continues to endorse cough but states this is less frequent. He believes this is due to allergies. He denies dyspnea on exertion or conversational dyspnea. No chest roxanna
[2022-05-06] MEDS: WARFARIN (*PBKC) 5 MG TABLET PO (16:49)
[2022-05-06] MEDS: WARFARIN (*PBKC) 1 MG TABLET PO (16:49)
[2022-05-06 17:14] LABS: Glucose Point of Care 125 mg/dl (65-105)
[2022-05-06 21:25] LABS: Glucose Point of Care 137 mg/dl (65-105)
[2022-05-07] VITALS (14 sets, daily range): BP systolic 113–144; BP diastolic 66–86; PULSE 57–79; RESP 16–22; TEMP 36.4–36.9; O2SAT 94–100
[2022-05-07 05:57] LABS: Hematocrit 34.4 % (42.0-52.0); Hemoglobin 9.5 g/dL (14.0-18.0); INR 2.6; Mean Corpuscular HGB Conc 27.6 g/dl (32-36); Mean Corpuscular Volume 94.2 fl (80-100); Mean Platelet Volume 11.8 fl (7.4-10.4); Platelet Count Result 138 k/mm3 (150-375); Prothrombin Time 26.7 Seconds (11.1-14.7); Red Blood Count 3.65 M/mm3 (4.6-6.20); Red Cell Distribution Width 17.2 % (11.5-14.5); White Blood Count 3.3 K/mm3 (4.5-10.0)
[2022-05-07 06:02] LABS: Blood Urea Nitrogen 30 mg/dL (9-20); Calcium 8.4 mg/dL (8.4-10.2); Carbon Dioxide > 40 mmol/L (22-30); Chloride 94 mmol/L (98-107); Estimated CRCL calculation 130 ml/min; Estimated Glomerular Filt Rate > 60; Glucose 94 mg/dL (65-110); Potassium 3.9 mmol/L (3.4-5.0); Sodium 146 mmol/L (137-145)
[2022-05-07] MEDS: SACUBITRIL/VALSARTAN 24-26 MG TABLET 1 TAB PO (08:53)
[2022-05-07] MEDS: FERROUS SULFATE 324 MG TABLET PO ×2 (08:53→18:06)
[2022-05-07] MEDS: DOCUSATE SODIUM 100 MG CAPSULE PO (08:53)
[2022-05-07] MEDS: carvediloL 12.5 MG TABLET PO (08:53)
[2022-05-07] MEDS: AMIODARONE HCL 200 MG TABLET PO (08:53)
[2022-05-07] MEDS: polyethylene glycoL 3350 17 GM POWD.PACK PO (08:54)
[2022-05-07] MEDS: DIGOXIN TAB 125 MCG TABLET PO (08:54)
[2022-05-07] MEDS: SILVERGEL (ELTA) 45 ML 1 APPLIC TOPICAL (08:54)
[2022-05-07] MEDS: FUROSEMIDE INJ 40 MG/4 ML VIAL IV PUSH (08:54)
[2022-05-07] MEDS: allopurinoL 100 MG TABLET PO ×2 (08:54→18:06)
[2022-05-07 08:59] LABS: Glucose Point of Care 100 mg/dl (65-105)
[2022-05-07 10:29] LABS: IFOB Positive Control Positive; Immunochemical Fecal Occult Bl Negative (N)
[2022-05-07 12:19] LABS: Glucose Point of Care 120 mg/dl (65-105)
--- NOTE | 2022-05-07 15:34 | P.PNIM_ITS ---
Progress Note: A&P Assessment and Plan (1) Acute respiratory failure: Code(s): J96.00 - Acute respiratory failure, unspecified whether with hypoxia or hypercapnia Status: Acute Assessment and Plan: Saturation noted to be in the 70s upon arrival to the ED with shortness of breath, inability to complete sentences, and tripoding noted on physical exam * CTA shows no PE with evidence of pulmonary edema * ABG showed compensated metabolic acidosis * [place] to be secondary to acute CHF exacerbation. See plan below * Today has been weaned to room air and maintaining adequate O2 sats (2) Acute exacerbation of CHF (congestive heart failure): Qualifiers: Heart failure type: systolic Qualified Code(s): I50.23 - Acute on chronic systolic (congestive) heart failure Code(s): I50.9 - Heart failure, unspecified Status: Acute Assessment and Plan: presented with acute shortness of breath felt to be secondary to acute CHF * evidence of cardiomegaly and pulmonary edema on CTA * BNP elevated at 8600 * echocardiogram revealed mildly reduced EF of 45-50% with a moderately enlarged left and right atrial chamber and elevated right atrial pressure * has had symptomatic improvement with IV diuresis * transition back to home Lasix 40 mg p.o. daily * monitor intake and output and daily weights * heart healthy diet (3) Fall: Code(s): W19.XXXA - Unspecified fall, initial encounter Status: Acute Assessment and Plan: patient had a fall at home * was just released from rehab and felt that he was not ready to return home, however insurance was not providing any further rehab days * no precipitating symptoms. Did not if his head or lose consciousness. Likely due to persistent weakness * appreciate PT evals * fall precautions implemented * will need placement. Care coordination following. (4) Weakness: Code(s): R53.1 - Weakness Status: Acute Assessment and Plan: Please see above (5) Anemia: Code(s): D64.9 - Anemia, unspecified Status: Acute Assessment and Plan: H&H with slight decline during admission * No active bleeding * Labs are consistent with iron deficiency anemia * Continue ferrous sulfate 324 mg BID * Fecal occult blood test negative * Slight improvement in hemoglobin today (6) Afib: Code(s): I48.91 - Unspecified atrial fibrillation Status: Acute Assessment and Plan: Rate is controlled. * Continue home amiodarone, digoxin, carvedilol * Continue warfarin. (7) Diabetes: Code(s): E11.9 - Type 2 diabetes mellitus without complications Status: Acute Assessment and Plan: A1c 5.6. * patient is insulin hypoglycemic agents. Appropriately managed with dietary and lifestyle * continue Accu-Cheks, low-dose sliding scale, hypoglycemic protocol (8) Hypertension: Code(s): I10 - Essential (primary) hypertension Status: Acute Assessment and Plan: blood pressures have been stable. 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
--- NOTE | 2022-05-07 15:34 | PM.IMPN ---
Progress Note: A&P Assessment and Plan (1) Acute respiratory failure: Code(s): J96.00 - Acute respiratory failure, unspecified whether with hypoxia or hypercapnia Status: Acute Assessment and Plan: Saturation noted to be in the 70s upon arrival to the ED with shortness of breath, inability to complete sentences, and tripoding noted on physical exam CTA shows no PE with evidence of pulmonary edema ABG showed compensated metabolic acidosis [place] to be secondary to acute CHF exacerbation. See plan below Today has been weaned to room air and maintaining adequate O2 sats (2) Acute exacerbation of CHF (congestive heart failure): Qualifiers: Heart failure type: systolic Qualified Code(s): I50.23 - Acute on chronic systolic (congestive) heart failure Code(s): I50.9 - Heart failure, unspecified Status: Acute Assessment and Plan: presented with acute shortness of breath felt to be secondary to acute CHF evidence of cardiomegaly and pulmonary edema on CTA BNP elevated at 8600 echocardiogram revealed mildly reduced EF of 45-50% with a moderately enlarged left and right atrial chamber and elevated right atrial pressure has had symptomatic improvement with IV diuresis transition back to home Lasix 40 mg p.o. daily monitor intake and output and daily weights heart healthy diet (3) Fall: Code(s): W19.XXXA - Unspecified fall, initial encounter Status: Acute Assessment and Plan: patient had a fall at home was just released from rehab and felt that he was not ready to return home, however insurance was not providing any further rehab days no precipitating symptoms. Did not if his head or lose consciousness. Likely due to persistent weakness appreciate PT evals fall precautions implemented will need placement. Care coordination following. (4) Weakness: Code(s): R53.1 - Weakness Status: Acute Assessment and Plan: Please see above (5) Anemia: Code(s): D64.9 - Anemia, unspecified Status: Acute Assessment and Plan: H&H with slight decline during admission No active bleeding Labs are consistent with iron deficiency anemia Continue ferrous sulfate 324 mg BID Fecal occult blood test negative Slight improvement in hemoglobin today (6) Afib: Code(s): I48.91 - Unspecified atrial fibrillation Status: Acute Assessment and Plan: Rate is controlled. Continue home amiodarone, digoxin, carvedilol Continue warfarin. (7) Diabetes: Code(s): E11.9 - Type 2 diabetes mellitus without complications Status: Acute Assessment and Plan: A1c 5.6. patient is insulin hypoglycemic agents. Appropriately managed with dietary and lifestyle continue Accu-Cheks, low-dose sliding scale, hypoglycemic protocol (8) Hypertension: Code(s): I10 - Essential (primary) hypertension Status: Acute Assessment and Plan: blood pressures have been stable. 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 etiology unclear. Continue to monitor CBC with differential Subjective Date/time seen: 05/07/22 15:34 Interval history: date of service: 05/07/2022 Johnnie Wilson is a 56-year-old male with a history of CHF, hypertension, atrial fibrillation and VTE maintained on chronic anticoagulation, type 2 diabetes mellitus who is seen in follow-up for CHF exacerbation. he is feeling well to
[2022-05-07 17:07] LABS: Glucose Point of Care 114 mg/dl (65-105)
[2022-05-07] MEDS: WARFARIN (*PBKC) 5 MG TABLET PO (18:06)
[2022-05-07] MEDS: WARFARIN (*PBKC) 1 MG TABLET PO (18:06)
[2022-05-07 19:43] LABS: Glucose Point of Care 125 mg/dl (65-105)
[2022-05-08] VITALS (10 sets, daily range): BP systolic 136–147; BP diastolic 82–86; PULSE 55–78; RESP 16–22; TEMP 36.2–36.6; O2SAT 90–99
[2022-05-08 05:04] LABS: Basophils Percent Auto 0.6 % (0.2-1.2); Eosinophils Absolute Auto 0.2 K/mm3 (0-0.3); Eosinophils Percent Auto 5.9 % (0-4.4); Hematocrit 32.4 % (42.0-52.0); Immature Granulocyte Absolute 0.01 K/mm3 (0.00-0.031); Immature Granulocyte Percent A 0.3 % (0-0.5); Lymphocytes Absolute Auto 0.75 K/mm3 (0.9-3.2); Lymphocytes Percent Auto 23.2 % (18.3-44.2); Mean Corpuscular HGB Conc 27.8 g/dl (32-36); Mean Corpuscular Hemoglobin 25.5 pg (26-34); Mean Corpuscular Volume 91.8 fl (80-100); Mean Platelet Volume 12.2 fl (7.4-10.4); Monocytes Absolute Auto 0.6 K/mm3 (0.1-0.6); Neutrophils Absolute Auto 1.7 K/mm3 (1.3-6.7); Platelet Count Result 128 k/mm3 (150-375); Red Blood Count 3.53 M/mm3 (4.6-6.20); Red Cell Distribution Width 17.4 % (11.5-14.5); White Blood Count 3.2 K/mm3 (4.5-10.0)
[2022-05-08 05:25] LABS: Alanine Aminotransferase 8 U/L (6-50); Albumin Level 3.3 g/dL (3.5-5.1); Alkaline Phosphatase 68 U/L (38-126); Aspartate Amino Transferase 18 U/L (17-59); Bilirubin,Total 0.6 mg/dL (0.2-1.3); Blood Urea Nitrogen 32 mg/dL (9-20); Calcium 8.5 mg/dL (8.4-10.2); Carbon Dioxide > 40 mmol/L (22-30); Chloride 95 mmol/L (98-107); Estimated CRCL calculation 145 ml/min; Estimated Glomerular Filt Rate > 60; Glucose 104 mg/dL (65-110); Potassium 4.1 mmol/L (3.4-5.0); Sodium 143 mmol/L (137-145)
[2022-05-08 07:33] LABS: INR 2.6; Prothrombin Time 26.7 Seconds (11.1-14.7)
[2022-05-08] MEDS: allopurinoL 100 MG TABLET PO ×2 (08:07→17:17)
[2022-05-08] MEDS: FERROUS SULFATE 324 MG TABLET PO ×2 (08:07→17:17)
[2022-05-08] MEDS: DIGOXIN TAB 125 MCG TABLET PO (08:07)
[2022-05-08] MEDS: carvediloL 12.5 MG TABLET PO (08:07)
[2022-05-08] MEDS: DOCUSATE SODIUM 100 MG CAPSULE PO ×2 (08:08→20:23)
[2022-05-08] MEDS: AMIODARONE HCL 200 MG TABLET PO (08:08)
[2022-05-08] MEDS: SACUBITRIL/VALSARTAN 24-26 MG TABLET 1 TAB PO (08:08)
[2022-05-08] MEDS: SILVERGEL (ELTA) 45 ML 1 APPLIC TOPICAL (08:09)
[2022-05-08] MEDS: polyethylene glycoL 3350 17 GM POWD.PACK PO (08:09)
[2022-05-08 08:14] LABS: Glucose Point of Care 93 mg/dl (65-105)
[2022-05-08] MEDS: FUROSEMIDE 40 MG TABLET PO (08:56)
[2022-05-08 11:54] LABS: Glucose Point of Care 134 mg/dl (65-105)
--- NOTE | 2022-05-08 14:30 | P.PNIM_ITS ---
Progress Note: A&P Assessment and Plan (1) Acute respiratory failure: Code(s): J96.00 - Acute respiratory failure, unspecified whether with hypoxia or hypercapnia Status: Acute Assessment and Plan: Saturation noted to be in the 70s upon arrival to the ED with shortness of breath, inability to complete sentences, and tripoding noted on physical exam * CTA shows no PE with evidence of pulmonary edema * ABG showed compensated metabolic acidosis * [place] to be secondary to acute CHF exacerbation. See plan below * Maintaining adequate O2 saturations on 2 L. Continue to wean oxygen as tolerated to goal sats 92% or above (2) Acute exacerbation of CHF (congestive heart failure): Qualifiers: Heart failure type: systolic Qualified Code(s): I50.23 - Acute on chronic systolic (congestive) heart failure Code(s): I50.9 - Heart failure, unspecified Status: Acute Assessment and Plan: presented with acute shortness of breath felt to be secondary to acute CHF * evidence of cardiomegaly and pulmonary edema on CTA * BNP elevated at 8600 * echocardiogram revealed mildly reduced EF of 45-50% with a moderately enlarged left and right atrial chamber and elevated right atrial pressure * has had symptomatic improvement with IV diuresis * transitioned back to home Lasix 40 mg p.o. daily today * monitor intake and output and daily weights * heart healthy diet (3) Fall: Code(s): W19.XXXA - Unspecified fall, initial encounter Status: Acute Assessment and Plan: patient had a fall at home * was just released from rehab and felt that he was not ready to return home, however insurance was not providing any further rehab days * no precipitating symptoms. Did not if his head or lose consciousness. Likely due to persistent weakness * appreciate PT evals * fall precautions implemented * will need placement. Care coordination following. (4) Weakness: Code(s): R53.1 - Weakness Status: Acute Assessment and Plan: Please see above (5) Anemia: Code(s): D64.9 - Anemia, unspecified Status: Acute Assessment and Plan: H&H with slight decline during admission, now remaining stable * No active bleeding * Labs are consistent with iron deficiency anemia * Continue ferrous sulfate 324 mg BID * Fecal occult blood test negative (6) Afib: Code(s): I48.91 - Unspecified atrial fibrillation Status: Acute Assessment and Plan: Rate is controlled. * Continue home amiodarone, digoxin, carvedilol * Continue warfarin. (7) Diabetes: Code(s): E11.9 - Type 2 diabetes mellitus without complications Status: Acute Assessment and Plan: A1c 5.6. * patient is not on insulin or hypoglycemic agents. Appropriately managed with dietary and lifestyle * continue Accu-Cheks, low-dose sliding scale, hypoglycemic protocol (8) Hypertension: Code(s): I10 - Essential (primary) hypertension Status: Acute Assessment and Plan: blood pressures have been stable. 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
--- NOTE | 2022-05-08 14:30 | PM.IMPN ---
Progress Note: A&P Assessment and Plan (1) Acute respiratory failure: Code(s): J96.00 - Acute respiratory failure, unspecified whether with hypoxia or hypercapnia Status: Acute Assessment and Plan: Saturation noted to be in the 70s upon arrival to the ED with shortness of breath, inability to complete sentences, and tripoding noted on physical exam CTA shows no PE with evidence of pulmonary edema ABG showed compensated metabolic acidosis [place] to be secondary to acute CHF exacerbation. See plan below Maintaining adequate O2 saturations on 2 L. Continue to wean oxygen as tolerated to goal sats 92% or above (2) Acute exacerbation of CHF (congestive heart failure): Qualifiers: Heart failure type: systolic Qualified Code(s): I50.23 - Acute on chronic systolic (congestive) heart failure Code(s): I50.9 - Heart failure, unspecified Status: Acute Assessment and Plan: presented with acute shortness of breath felt to be secondary to acute CHF evidence of cardiomegaly and pulmonary edema on CTA BNP elevated at 8600 echocardiogram revealed mildly reduced EF of 45-50% with a moderately enlarged left and right atrial chamber and elevated right atrial pressure has had symptomatic improvement with IV diuresis transitioned back to home Lasix 40 mg p.o. daily today monitor intake and output and daily weights heart healthy diet (3) Fall: Code(s): W19.XXXA - Unspecified fall, initial encounter Status: Acute Assessment and Plan: patient had a fall at home was just released from rehab and felt that he was not ready to return home, however insurance was not providing any further rehab days no precipitating symptoms. Did not if his head or lose consciousness. Likely due to persistent weakness appreciate PT evals fall precautions implemented will need placement. Care coordination following. (4) Weakness: Code(s): R53.1 - Weakness Status: Acute Assessment and Plan: Please see above (5) Anemia: Code(s): D64.9 - Anemia, unspecified Status: Acute Assessment and Plan: H&H with slight decline during admission, now remaining stable No active bleeding Labs are consistent with iron deficiency anemia Continue ferrous sulfate 324 mg BID Fecal occult blood test negative (6) Afib: Code(s): I48.91 - Unspecified atrial fibrillation Status: Acute Assessment and Plan: Rate is controlled. Continue home amiodarone, digoxin, carvedilol Continue warfarin. (7) Diabetes: Code(s): E11.9 - Type 2 diabetes mellitus without complications Status: Acute Assessment and Plan: A1c 5.6. patient is not on insulin or hypoglycemic agents. Appropriately managed with dietary and lifestyle continue Accu-Cheks, low-dose sliding scale, hypoglycemic protocol (8) Hypertension: Code(s): I10 - Essential (primary) hypertension Status: Acute Assessment and Plan: blood pressures have been stable. 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 etiology unclear. Continue to monitor CBC with differential Subjective Date/time seen: 05/08/22 14:30 Interval history: date of service: 05/08/2022 Johnnie Wilson is a 56-year-old male with a history of CHF, hypertension, atrial fibrillation and VTE maintained on chronic anticoagulation, type 2 diabetes mellitus who is seen in follow-up for
[2022-05-08 17:07] LABS: Glucose Point of Care 112 mg/dl (65-105)
[2022-05-08] MEDS: WARFARIN (*PBKC) 5 MG TABLET PO (17:17)
[2022-05-08] MEDS: WARFARIN (*PBKC) 1 MG TABLET PO (17:17)
[2022-05-08 21:44] LABS: Glucose Point of Care 104 mg/dl (65-105)
[2022-05-09 05:35] LABS: Hematocrit 32.9 % (42.0-52.0); Mean Corpuscular HGB Conc 27.4 g/dl (32-36); Mean Corpuscular Hemoglobin 25.9 pg (26-34); Mean Corpuscular Volume 94.8 fl (80-100); Mean Platelet Volume 11.6 fl (7.4-10.4); Platelet Count Result 120 k/mm3 (150-375); Red Blood Count 3.47 M/mm3 (4.6-6.20); Red Cell Distribution Width 17.7 % (11.5-14.5); White Blood Count 3.5 K/mm3 (4.5-10.0)
[2022-05-09 05:45] LABS: INR 2.5; Prothrombin Time 26.3 Seconds (11.1-14.7)
[2022-05-09 05:52] LABS: Blood Urea Nitrogen 32 mg/dL (9-20); Calcium 8.5 mg/dL (8.4-10.2); Carbon Dioxide > 40 mmol/L (22-30); Chloride 95 mmol/L (98-107); Estimated CRCL calculation 130 ml/min; Estimated Glomerular Filt Rate > 60; Glucose 94 mg/dL (65-110); Potassium 3.8 mmol/L (3.4-5.0); Sodium 141 mmol/L (137-145)
[2022-05-09 06:50] VITALS: BP 134/87; PULSE 100; RESP 18; TEMP 36.4; O2SAT 91
[2022-05-09 08:00] VITALS: O2SAT 94
[2022-05-09 08:05] LABS: Glucose Point of Care 94 mg/dl (65-105)
[2022-05-09] MEDS: DOCUSATE SODIUM 100 MG CAPSULE PO (08:19)
[2022-05-09] MEDS: DIGOXIN TAB 125 MCG TABLET PO (08:19)
[2022-05-09] MEDS: FUROSEMIDE 40 MG TABLET PO (08:20)
[2022-05-09] MEDS: allopurinoL 100 MG TABLET PO ×2 (08:20→16:58)
[2022-05-09] MEDS: carvediloL 12.5 MG TABLET PO (08:20)
[2022-05-09] MEDS: FERROUS SULFATE 324 MG TABLET PO ×2 (08:20→16:57)
[2022-05-09] MEDS: SILVERGEL (ELTA) 45 ML 1 APPLIC TOPICAL (08:20)
[2022-05-09] MEDS: SACUBITRIL/VALSARTAN 24-26 MG TABLET 1 TAB PO (08:20)
[2022-05-09] MEDS: AMIODARONE HCL 200 MG TABLET PO (08:20)
[2022-05-09] MEDS: polyethylene glycoL 3350 17 GM POWD.PACK PO (08:20)
[2022-05-09 12:00] LABS: Glucose Point of Care 139 mg/dl (65-105)
[2022-05-09 14:00] VITALS: BP 119/88; PULSE 62; RESP 18; TEMP 36.3; O2SAT 93
--- NOTE | 2022-05-09 15:56 | P.PNIM_ITS ---
Progress Note: A&P Assessment and Plan (1) Acute respiratory failure: Code(s): J96.00 - Acute respiratory failure, unspecified whether with hypoxia or hypercapnia Status: Acute Assessment and Plan: Saturation noted to be in the 70s upon arrival to the ED with shortness of breath, inability to complete sentences, and tripoding noted on physical exam * CTA shows no PE with evidence of pulmonary edema * ABG showed compensated metabolic acidosis * [place] to be secondary to acute CHF exacerbation. See plan below * Has been weaned to room air today and is maintaining adequate O2 saturations. Supplemental O2 as needed with goal saturations 92% or above * Patient will need home oxygen evaluation if plans are to discharge home. If discharged to a facility, will need intermittent monitoring of oxygen sats (2) Acute exacerbation of CHF (congestive heart failure): Qualifiers: Heart failure type: systolic Qualified Code(s): I50.23 - Acute on chronic systolic (congestive) heart failure Code(s): I50.9 - Heart failure, unspecified Status: Acute Assessment and Plan: presented with acute shortness of breath felt to be secondary to acute CHF * evidence of cardiomegaly and pulmonary edema on CTA * BNP elevated at 8600 * echocardiogram revealed mildly reduced EF of 45-50% with a moderately enlarged left and right atrial chamber and elevated right atrial pressure * symptomatic improvement following IV diuresis * now back on home Lasix 40 mg p.o. daily * monitor intake and output and daily weights * heart healthy diet (3) Fall: Code(s): W19.XXXA - Unspecified fall, initial encounter Status: Acute Assessment and Plan: patient had a fall at home * was just released from rehab and felt that he was not ready to return home, however insurance was not providing any further rehab days * no precipitating symptoms. Did not if his head or lose consciousness. Likely due to persistent weakness * appreciate PT evals * fall precautions implemented * will likely need placement. Care coordination following. (4) Weakness: Code(s): R53.1 - Weakness Status: Acute Assessment and Plan: Please see above (5) Anemia: Code(s): D64.9 - Anemia, unspecified Status: Acute Assessment and Plan: H&H with slight decline during admission, now remaining stable * No active bleeding * Labs are consistent with iron deficiency anemia * Continue ferrous sulfate 324 mg BID * Fecal occult blood test negative (6) Afib: Code(s): I48.91 - Unspecified atrial fibrillation Status: Acute Assessment and Plan: Rate is controlled. * Continue home amiodarone, digoxin, carvedilol * Continue warfarin. (7) Diabetes: Code(s): E11.9 - Type 2 diabetes mellitus without complications Status: Acute Assessment and Plan: A1c 5.6. * patient is not on insulin or hypoglycemic agents. Appropriately managed with diet and lifestyle * continue Accu-Cheks, low-dose sliding scale, hypoglycemic protocol (8) Hypertension: Code(s): I10 - Essential (primary) hypertension Status: Acute Assessment and Plan: blood pressures have been stable. 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
--- NOTE | 2022-05-09 15:56 | PM.IMPN ---
Progress Note: A&P Assessment and Plan (1) Acute respiratory failure: Code(s): J96.00 - Acute respiratory failure, unspecified whether with hypoxia or hypercapnia Status: Acute Assessment and Plan: Saturation noted to be in the 70s upon arrival to the ED with shortness of breath, inability to complete sentences, and tripoding noted on physical exam CTA shows no PE with evidence of pulmonary edema ABG showed compensated metabolic acidosis Manning to be secondary to acute CHF exacerbation. See plan below Has been weaned to room air today and is maintaining adequate O2 saturations. Supplemental O2 as needed with goal saturations 92% or above Patient will need home oxygen evaluation if plans are to discharge home. If discharged to a facility, will need intermittent monitoring of oxygen sats (2) Acute exacerbation of CHF (congestive heart failure): Qualifiers: Heart failure type: systolic Qualified Code(s): I50.23 - Acute on chronic systolic (congestive) heart failure Code(s): I50.9 - Heart failure, unspecified Status: Acute Assessment and Plan: presented with acute shortness of breath felt to be secondary to acute CHF evidence of cardiomegaly and pulmonary edema on CTA BNP elevated at 8600 echocardiogram revealed mildly reduced EF of 45-50% with a moderately enlarged left and right atrial chamber and elevated right atrial pressure symptomatic improvement following IV diuresis now back on home Lasix 40 mg p.o. daily monitor intake and output and daily weights heart healthy diet (3) Fall: Code(s): W19.XXXA - Unspecified fall, initial encounter Status: Acute Assessment and Plan: patient had a fall at home was just released from rehab and felt that he was not ready to return home, however insurance was not providing any further rehab days no precipitating symptoms. Did not if his head or lose consciousness. Likely due to persistent weakness appreciate PT evals fall precautions implemented will likely need placement. Care coordination following. (4) Weakness: Code(s): R53.1 - Weakness Status: Acute Assessment and Plan: Please see above (5) Anemia: Code(s): D64.9 - Anemia, unspecified Status: Acute Assessment and Plan: H&H with slight decline during admission, now remaining stable No active bleeding Labs are consistent with iron deficiency anemia Continue ferrous sulfate 324 mg BID Fecal occult blood test negative (6) Afib: Code(s): I48.91 - Unspecified atrial fibrillation Status: Acute Assessment and Plan: Rate is controlled. Continue home amiodarone, digoxin, carvedilol Continue warfarin. (7) Diabetes: Code(s): E11.9 - Type 2 diabetes mellitus without complications Status: Acute Assessment and Plan: A1c 5.6. patient is not on insulin or hypoglycemic agents. Appropriately managed with diet and lifestyle continue Accu-Cheks, low-dose sliding scale, hypoglycemic protocol (8) Hypertension: Code(s): I10 - Essential (primary) hypertension Status: Acute Assessment and Plan: blood pressures have been stable. 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 etiology unclear. Continue to monitor CBC with differential Subjective Date/time seen: 05/09/22 15:56 Interval history: Date of service: 05/09/2022 Johnnie Wilson is a 56-yea
[2022-05-09 16:45] LABS: Glucose Point of Care 142 mg/dl (65-105)
[2022-05-09] MEDS: WARFARIN (*PBKC) 1 MG TABLET PO (16:57)
[2022-05-09] MEDS: WARFARIN (*PBKC) 5 MG TABLET PO (16:57)
[2022-05-09 20:00] VITALS: PULSE 62; RESP 18; O2SAT 93
[2022-05-09 21:30] VITALS: BP 143/85; PULSE 63; RESP 18; TEMP 36.8; O2SAT 99
[2022-05-10 00:26] VITALS: PULSE 79; RESP 21; O2SAT 95
[2022-05-10 05:25] VITALS: BP 144/92; PULSE 75; RESP 20; TEMP 36.8; O2SAT 95
[2022-05-10 06:21] LABS: Basophils Percent Auto 0.8 % (0.2-1.2); Eosinophils Absolute Auto 0.2 K/mm3 (0-0.3); Eosinophils Percent Auto 5.7 % (0-4.4); Hematocrit 36.4 % (42.0-52.0); Hemoglobin 9.9 g/dL (14.0-18.0); Immature Granulocyte Absolute 0.02 K/mm3 (0.00-0.031); Immature Granulocyte Percent A 0.5 % (0-0.5); Lymphocytes Absolute Auto 0.87 K/mm3 (0.9-3.2); Lymphocytes Percent Auto 23.8 % (18.3-44.2); Mean Corpuscular HGB Conc 27.2 g/dl (32-36); Mean Corpuscular Hemoglobin 26.3 pg (26-34); Mean Corpuscular Volume 96.8 fl (80-100); Mean Platelet Volume 12.2 fl (7.4-10.4); Monocytes Absolute Auto 0.6 K/mm3 (0.1-0.6); Monocytes Percent Auto 16.1 % (2.6-8.5); Neutrophils Absolute Auto 1.9 K/mm3 (1.3-6.7); Neutrophils Percent Auto 53.1 % (45.5-73.1); Platelet Count Result 146 k/mm3 (150-375); Red Blood Count 3.76 M/mm3 (4.6-6.20); Red Cell Distribution Width 18.3 % (11.5-14.5); White Blood Count 3.7 K/mm3 (4.5-10.0)
[2022-05-10 06:52] LABS: Blood Urea Nitrogen 31 mg/dL (9-20); Calcium 8.5 mg/dL (8.4-10.2); Carbon Dioxide > 40 mmol/L (22-30); Chloride 96 mmol/L (98-107); Estimated CRCL calculation 99 ml/min; Estimated Glomerular Filt Rate > 60; Glucose 120 mg/dL (65-110); INR 2.5; Potassium 3.9 mmol/L (3.4-5.0); Prothrombin Time 26.3 Seconds (11.1-14.7); Sodium 144 mmol/L (137-145)
[2022-05-10 07:12] LABS: Platelet Estimate Decreased (Adequate)
[2022-05-10 07:13] LABS: Anisocytosis 1+ (NORMAL); Hypochromasia 1+ (NORMAL)
[2022-05-10 08:57] LABS: Glucose Point of Care 90 mg/dl (65-105)
[2022-05-10 09:31] VITALS: PULSE 80
[2022-05-10] MEDS: allopurinoL 100 MG TABLET PO ×2 (09:31→16:15)
[2022-05-10] MEDS: FERROUS SULFATE 324 MG TABLET PO ×2 (09:31→16:14)
[2022-05-10] MEDS: SACUBITRIL/VALSARTAN 24-26 MG TABLET 1 TAB PO (09:31)
[2022-05-10] MEDS: AMIODARONE HCL 200 MG TABLET PO (09:31)
[2022-05-10] MEDS: polyethylene glycoL 3350 17 GM POWD.PACK PO (09:31)
[2022-05-10 09:32] VITALS: PULSE 80
[2022-05-10] MEDS: carvediloL 12.5 MG TABLET PO (09:32)
[2022-05-10] MEDS: FUROSEMIDE 40 MG TABLET PO (09:32)
[2022-05-10] MEDS: DIGOXIN TAB 125 MCG TABLET PO (09:32)
[2022-05-10] MEDS: DOCUSATE SODIUM 100 MG CAPSULE PO (09:33)
[2022-05-10] MEDS: SILVERGEL (ELTA) 45 ML 1 APPLIC TOPICAL (09:33)
[2022-05-10 09:40] VITALS: RESP 20; O2SAT 95
[2022-05-10 10:38] LABS: Schistocytes None Seen (NORMAL)
[2022-05-10 12:21] LABS: Glucose Point of Care 128 mg/dl (65-105)
--- NOTE | 2022-05-10 13:48 | P.DS_ITS ---
DS: Admitting Diagnosis Discharge Date 05/10/2022 Admitting Diagnosis Acute hypoxia DS: Discharge Diagnosis Discharge Diagnosis (1) Acute respiratory failure: Code(s): J96.00 - Acute respiratory failure, unspecified whether with hypoxia or hypercapnia Status: Acute Assessment and Plan: Saturation noted to be in the 70s upon arrival to the ED with shortness of breath, inability to complete sentences, and tripoding noted on physical exam * CTA showed no PE with evidence of pulmonary edema * ABG showed compensated metabolic acidosis * [place] to be secondary to acute CHF exacerbation. See plan below * He was weaned to room air today and maintained adequate O2 saturations. * O2 sats to be monitored at SNF with supplemental O2 as needed for goal sats 90% or above. (2) Acute exacerbation of CHF (congestive heart failure): Qualifiers: Heart failure type: systolic Qualified Code(s): I50.23 - Acute on chronic systolic (congestive) heart failure Code(s): I50.9 - Heart failure, unspecified Status: Acute Assessment and Plan: presented with acute shortness of breath felt to be secondary to acute CHF * evidence of cardiomegaly and pulmonary edema on CTA * BNP elevated at 8600 * echocardiogram revealed mildly reduced EF of 45-50% with a moderately enlarged left and right atrial chamber and elevated right atrial pressure * symptomatic improvement following IV diuresis * resumed back on home Lasix 40 mg p.o. daily * heart healthy diet (3) Fall: Code(s): W19.XXXA - Unspecified fall, initial encounter Status: Acute Assessment and Plan: patient had a fall at home * was just released from rehab and felt that he was not ready to return home, however insurance was not providing any further rehab days * no precipitating symptoms. Did not hit his head or lose consciousness. Likely due to persistent weakness * appreciate PT evals during admission * will continue with therapy at nursing facility (4) Weakness: Code(s): R53.1 - Weakness Status: Acute Assessment and Plan: Please see above (5) Anemia: Code(s): D64.9 - Anemia, unspecified Status: Acute Assessment and Plan: H&H remained relatively stable * No active bleeding * Labs are consistent with iron deficiency anemia * Started on PO ferrous sulfate 324 mg BID * Fecal occult blood test negative (6) Afib: Code(s): I48.91 - Unspecified atrial fibrillation Status: Acute Assessment and Plan: Rate is controlled. * Continue home amiodarone, digoxin, carvedilol * Continue warfarin. (7) Diabetes: Code(s): E11.9 - Type 2 diabetes mellitus without complications Status: Acute Assessment and Plan: A1c 5.6. * patient is not on insulin or hypoglycemic agents. Appropriately managed with diet and lifestyle (8) Hypertension: Code(s): I10 - Essential (primary) hypertension Status: Acute Assessment and Plan: blood pressures stable. 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
--- NOTE | 2022-05-10 13:48 | PM.DS ---
DS: Admitting Diagnosis Discharge Date 05/10/2022 Admitting Diagnosis Acute hypoxia DS: Discharge Diagnosis Discharge Diagnosis (1) Acute respiratory failure: Code(s): J96.00 - Acute respiratory failure, unspecified whether with hypoxia or hypercapnia Status: Acute Assessment and Plan: Saturation noted to be in the 70s upon arrival to the ED with shortness of breath, inability to complete sentences, and tripoding noted on physical exam CTA showed no PE with evidence of pulmonary edema ABG showed compensated metabolic acidosis [place] to be secondary to acute CHF exacerbation. See plan below He was weaned to room air today and maintained adequate O2 saturations. O2 sats to be monitored at SNF with supplemental O2 as needed for goal sats 90% or above. (2) Acute exacerbation of CHF (congestive heart failure): Qualifiers: Heart failure type: systolic Qualified Code(s): I50.23 - Acute on chronic systolic (congestive) heart failure Code(s): I50.9 - Heart failure, unspecified Status: Acute Assessment and Plan: presented with acute shortness of breath felt to be secondary to acute CHF evidence of cardiomegaly and pulmonary edema on CTA BNP elevated at 8600 echocardiogram revealed mildly reduced EF of 45-50% with a moderately enlarged left and right atrial chamber and elevated right atrial pressure symptomatic improvement following IV diuresis resumed back on home Lasix 40 mg p.o. daily heart healthy diet (3) Fall: Code(s): W19.XXXA - Unspecified fall, initial encounter Status: Acute Assessment and Plan: patient had a fall at home was just released from rehab and felt that he was not ready to return home, however insurance was not providing any further rehab days no precipitating symptoms. Did not hit his head or lose consciousness. Likely due to persistent weakness appreciate PT evals during admission will continue with therapy at nursing facility (4) Weakness: Code(s): R53.1 - Weakness Status: Acute Assessment and Plan: Please see above (5) Anemia: Code(s): D64.9 - Anemia, unspecified Status: Acute Assessment and Plan: H&H remained relatively stable No active bleeding Labs are consistent with iron deficiency anemia Started on PO ferrous sulfate 324 mg BID Fecal occult blood test negative (6) Afib: Code(s): I48.91 - Unspecified atrial fibrillation Status: Acute Assessment and Plan: Rate is controlled. Continue home amiodarone, digoxin, carvedilol Continue warfarin. (7) Diabetes: Code(s): E11.9 - Type 2 diabetes mellitus without complications Status: Acute Assessment and Plan: A1c 5.6. patient is not on insulin or hypoglycemic agents. Appropriately managed with diet and lifestyle (8) Hypertension: Code(s): I10 - Essential (primary) hypertension Status: Acute Assessment and Plan: blood pressures stable. 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 etiology unclear. CBC with differential monitor during admission and remained stable Continue with outpatient follow-up DS: Summary Hospital Course Hospital Course: Date of admission: 05/03/2022 Date of discharge: 05/10/2022 Johnnie Wilson is a 56-year-old male with a history of CHF, hypertension, atrial fibrillation and VTE maintained on chronic anticoagulation, type 2 diabet
[2022-05-10 14:00] VITALS: BP 127/72; PULSE 60; RESP 22; TEMP 36.7; O2SAT 92
[2022-05-10 14:09] LABS: EDCOVIDSCREEN Negative (Negative)
[2022-05-10] MEDS: WARFARIN (*PBKC) 5 MG TABLET PO (16:15)
[2022-05-10] MEDS: WARFARIN (*PBKC) 1 MG TABLET PO (16:16)
[2022-05-10 16:21] LABS: Glucose Point of Care 119 mg/dl (65-105)
[2022-05-10 17:14] LABS: Glucose Point of Care 111 mg/dl (65-105)
== END 2022-05-10 18:10 | DRG 291 ==
LOC: ANHED 23:52 → ANH3MEDSUR 05-04 02:40 → ANH2MED 05-04 02:41
PROVIDERS: Nurse Practitioner; Nurse Practitioner Adult Health; Physician Assistant; Admitting Provider Internal Medicine; Emergency Provider Family Medicine; Visit Provider Family Medicine
DX: I11.0 Hypertensive heart disease with heart failure (principal); I50.23 Acute on chronic systolic (congestive) heart failure; J96.00 Acute respiratory failure, unspecified whether with hypoxia or hypercapnia; D61.818 Other pancytopenia; D50.9 Iron deficiency anemia, unspecified; I48.91 Unspecified atrial fibrillation; E11.9 Type 2 diabetes mellitus without complications; J44.9 Chronic obstructive pulmonary disease, unspecified; Z20.822 Contact with and (suspected) exposure to COVID-19; Z23 Encounter for immunization; W19.XXXA Unspecified fall, initial encounter; Z79.01 Long term (current) use of anticoagulants; Z79.899 Other long term (current) drug therapy
CPT/HCPCS: 36415; 36600; 71275; 80048; 80053; 82274; 82607; 82728; 82746; 82805; 82948; 83036; 83540; 83550; 83605; 83735; 83880; 84443; 84466; 84484; 85025; 85027; 85610; 85730; 87426; 87502; 90471; 90686; 93005; 94003; 94660; 96374; 96375; 96376; 97110; 97162; 97166; 97530; 97535; 99285; A9270; C8929; C9803; G0008; G0378; J1940; Q9957; Q9967; U0003; U0005

== ENCOUNTER 2022-05-18 08:00 | Inpatient (IN) | payer BC, SELFPAY ==
[2022-05-18] VITALS (60 sets, daily range): BP systolic 63–158; BP diastolic 50–99; PULSE 66–105; RESP 15–21; TEMP 35.7–37.8; O2SAT 95–100; BMI 40.7
--- NOTE | 2022-05-18 | ECHO_ITS ---
Patient Info Name: Johnnie Wilson Age: 56 years : 1965 Gender: Male Ht: 74 in Wt: 352 lbs BSA: 2.96 m2 HR: 77 bpm BP: 118 / 74 mmHg Heart Rhythm: Indeterminant Exam Date: 05/18/2022 1:36 PM Exam Location: [facility] Patient Status: Emergency Admit Date: 05/18/2022 Staff Ordering Physician: Flip Acosta MD Application Security Architect: Yuan Phan RDCS, RT Attending Provider: Xavier Chapa D.C., DO Exam Type: CA echo doppler color flow Study Info Indications I26.09 - Other pulmonary embolism with acute cor pulmonale I46.2 - Cardiac arrest due to underlying cardiac condition Complete two-dimensional, color flow and Doppler transthoracic echocardiogram is performed with contrast to opacify the left ventricle and to improve the deliniation of the left ventricle endocardial borders. Summary 1. Moderate left ventricular enlargement with moderate eccentric left ventricular hypertrophy. Severe global hypokinesis with a calculated ejection fraction of 32% (visually 30-35 %). Diastolic function is abnormal. No segmental wall motion abnormalities. 2. Left atrial chamber dimension is moderately enlarged. 3. Right atrial chamber dimension is mildly enlarged. 4. There is mild tricuspid valve regurgitation. 5. Moderate pulmonary hypertension, estimated pulmonary arterial systolic pressure is 62 mmHg. 6. Dilated inferior vena cava with >50% collapse upon inspiration consistent with elevated right atrial pressure, 15 mmHg. 7. Right ventricular size and systolic function is normal. 8. Somewhat technically difficult study; definity echo contrast used. 9. Indeterminate rhythm, may be atrial fibrillation. Left Ventricle Left ventricular chamber dimension is moderately enlarged. Left ventricular systolic function is normal, estimated at Empty. There is moderately increased left ventricular wall thickness. Left ventricular septal wall motion is normal. The left ventricular diastolic function is abnormal. Global longitudinal strain is normal at -7 %. Right Ventricle Right ventricular chamber dimension is normal. Right ventricular size and systolic function is normal. Left Atria Left atrial chamber dimension is moderately enlarged. Right Atria Right atrial chamber dimension is mildly enlarged. Aortic Valve The aortic valve is trileaflet. There is no aortic valve sclerosis. There is no aortic valve stenosis. There is no aortic valve regurgitation. Pulmonic Valve The pulmonic valve is normal. There is no pulmonic valve stenosis. There is no pulmonic regurgitation. Mitral Valve The mitral valve has normal leaflets. There is no mitral valve stenosis. There is no mitral valve regurgitation. Tricuspid Valve The tricuspid valve leaflets are normal. There is no significant tricuspid valve stenosis. There is mild tricuspid valve regurgitation. Moderate pulmonary hypertension, estimated pulmonary arterial systolic pressure is 62 mmHg. Pericardium/Pleural The pericardium appears normal. There is no pericardial effusion. Inferior Vena Cava Dilated inferior vena cava with >50% collapse upon inspiration consistent with elevated right atrial pressure, 15 mmHg. Aorta The aortic root size at the sinus of Valsalva is normal. The prox ascending aorta size is normal. Left Ventricular Outflow Tract Name Value Normal
--- NOTE | ~2022-05-18 | XR_ITS ---
EXAMINATION: XR chest 1V portable DATE: 05/19/2022 06:14 INDICATION: Respiratory failure. TECHNIQUE: A single frontal view of the chest was obtained on 2 radiographs. COMPARISON: Chest single view 05/18/2022, CT abdomen and pelvis 05/18/2022 FINDINGS: There are airspace opacities in all lung zones bilaterally with a perihilar and lower lung predominance. There is a small left pleural effusion. No pneumothorax or cardiomegaly is noted. The e ndotracheal tube tip is 4.4 cm above the bob. There is a left chest wall pacer with leads in the r ight atrium and right ventricle. The nasogastric tube tip is beyond the inferior margin of the radiog raph, but at least to the stomach. IMPRESSION: 1. Diffuse lung disease, consistent with pulmonary edema versus pneumonia. 2. Small left pleural effusion. 3. Cardiomegaly. Reviewed, dictated and finalized at location A. HER ADJUSTER
--- NOTE | ~2022-05-18 | XR_ITS ---
EXAM: XR abdomen NG/feed tube insert DATE: 05/18/2022 18:44 HISTORY: og insertion . COMPARISON: CT abdomen and pelvis 05/18/2022. FINDINGS: Left basilar consolidation. NG tube, tip over the stomach, side port near the gastric fund us. Mild small bowel dilation. IMPRESSION: NG tube, in good position. Small bowel ileus versus obstruction. Consider serial radiogra phic follow-up. Reviewed, dictated and finalized at location K. ING CONSULTANT IMPRESSION: NG tube, in good position. Small bowel ileus versus obstruction. Co nsider serial radiographic follow-up.
--- NOTE | ~2022-05-18 | XR_ITS ---
XR chest 1V portable DATE: 05/23/2022 06:03 INDICATION: Respiratory failure TECHNIQUE: Portable upright AP chest on 05/23/2022 at 0536 hours COMPARISON: 05/22/2022 portable AP chest at 0545 hours FINDINGS: ET tube in satisfactory position. NG tube is noted passing toward the stomach. Left-sided transvenous pacemaker device with leads overlying right atrium and right ventricle. Cardiomegaly. Pulmonary vascular congestion. Possible minor fissure consistent with subpleural edema. There are bilateral poorly central and lower lung zone infiltrates, left greater than right with rg e volume loss/atelectasis of the left lung, particularly left lower lobe, since 05/22/2022. IMPRESSION: Increased infiltrate and interval atelectasis of left lung since 05/22/2022 Persistent cardiomegaly, congestive changes, bilateral infiltrates, suggesting pulmonary edema. Pneum onia is not excluded Reviewed, dictated and finalized at location A. CARRIER IMPRESSION: Increased infiltrate and interval atelectasis of left lung since Persistent cardiomegaly, congestive changes, bilateral infiltrates, suggesting pulmonary edema. Pneumonia is not excluded
--- NOTE | ~2022-05-18 | XR_ITS ---
XR chest 1V portable DATE: 05/20/2022 05:53 INDICATION: Pulmonary embolus, cardiac arrest, congestive heart failure, mechanical ventilation TECHNIQUE: Portable AP chest on 05/16/2022 at 0537 hours COMPARISON: 05/19/2022 portable AP chest at 0 535 and 0536 hours FINDINGS: Cardiomegaly, pulmonary vascular congestion and redistribution and bilateral predominantly lower lung infiltrates, more prominent on the left, persist. Congestive heart failure and pulmonary e harsh are suggested. Pneumonia is not excluded, particularly at left lower lobe Left transvenous pacemaker device with leads overlying right atrium and right ventricle. ET tube in satisfactory position. NG tube noted in stomach. IMPRESSION: Cardiomegaly, pulmonary vascular congestion, bilateral infiltrates, proximal fissure, sug gesting congestive heart failure, pulmonary edema. Prominent infiltrate and/atelectasis in the left lower lobe No significant change since 05/19/2022 Reviewed, dictated and finalized at location A. OMER CARE CONSULTANT IMPRESSION: Cardiomegaly, pulmonary vascular congestion, bilateral infiltrates, proximal fissure, suggesting congestive heart failure, pulmonary edema. Prominent infiltrate and/atelectasis in the left lower lobe No significant change since 05/19/2022
--- NOTE | ~2022-05-18 | CT_ITS ---
EXAMINATION: CT abdomen pelvis wo con DATE: 05/18/2022 12:47 INDICATION: Unresponsive. TECHNIQUE: Computed tomography (CT) of the abdomen and pelvis was performed without intravenous contr ast. Automated exposure control and iterative reconstruction technique were employed. The dose-length product was 1703.45 mGy-cm. COMPARISON: Chest CT 05/18/2022, 05/03/2022 FINDINGS: The visualized portions of the lung bases demonstrate moderate-sized pleural effusions. The re is dependent atelectasis bilaterally. Cardiomegaly is noted. No pericardial effusion. There are pa cer wires in right atrium and right ventricle. Gynecomastia is noted. The liver is normal. There are changes of cholecystectomy. The spleen, pancreas, and adrenal glands are normal. There is cortical th inning of the kidneys. There is a 11.3 cm cyst in left kidney. The prostate is moderately enlarged. T here is a Orosco catheter in expected position. There are no dilated loops of bowel. The appendix is n ormal. There is wall thickening of the rectum. There are no pathologically enlarged lymph nodes. Ther e is no free intraperitoneal fluid. Body wall edema is noted. There is a sacral decubitus ulcer. Ther e are erosions of the sacrum and coccyx, consistent with osteomyelitis. There is an acute fracture of left fifth rib. 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 There is an old fracture of left anterior inferior iliac spine. There is mild thoracic spondylosis and moderate lumbar spondylosis. IMPRESSION: 1. Moderate-sized pleural effusions. 2. Acute fracture of left fifth rib. 3. Wall thickening of the rectum, consistent with proctitis. 4. Sacral decubitus ulcer with osteomyelitis of the sacrum and coccyx, likely chronic. Reviewed, dictated and finalized at location A. T END LOADER OPERATOR IMPRESSION: 1. Moderate-sized pleural effusions. 2. Acute fracture of left fifth rib. 3. Wall thickening of the rectum, consistent with proctitis. 4. Sacral decubitus ulcer with osteomyelitis of the sacrum and coccyx, likely c hronic.
--- NOTE | ~2022-05-18 | XR_ITS ---
EXAMINATION: XR chest ET placement DATE: 05/18/2022 09:10 INDICATION: Cardiac arrest TECHNIQUE: frontal view of the chest was obtained on 4 radiographs. COMPARISON: Chest CT dated 05/03/2022 FINDINGS: Endotracheal tube tip 4.9 cm above the bob. Complete opacification of the right upper lobe without significant volume loss which is concerning for pneumonia. Additional airspace opacities in the righ t lower lung zone with obscuration of the right hemidiaphragm and right heart border consistent with atelectasis and/or pneumonia in the right middle and lower lobes. There is also a small right pleural effusion. A severe perihilar predominant opacities in the left lung. No pneumothorax or left-sided p leural effusion. Cardiomegaly. Dual lead pacemaker/AICD seen with leads projecting over the expected locations of the right atrium and right ventricle. Expansile lesion along the posterolateral left sev enth rib with nonaggressive sclerotic margins and intact cortex most consistent with fibrous dysplasi a. IMPRESSION: 1. Dense consolidation in the right upper lobe without volume loss most consistent with pneumonia. 2. Small right pleural effusion with additional opacities in the right middle and lower lobes which c ould represent additional pneumonia or atelectasis. 3. Left perihilar opacities which represent pneumonia or mild pulmonary edema. 4. Cardiomegaly. Reviewed, dictated and finalized at location A. R WRAPPER TENDER AUTOMATIC IMPRESSION: 1. Dense consolidation in the right upper lobe without volume loss most consist ent with pneumonia. 2. Small right pleural effusion with additional opacities in the right middle a nd lower lobes which could represent additional pneumonia or atelectasis. 3. Left perihilar opacities which represent pneumonia or mild pulmonary edema. 4. Cardiomegaly.
--- NOTE | ~2022-05-18 | US_ITS ---
EXAMINATION: US renal BI DATE: 05/19/2022 09:30 INDICATION: Acute kidney injury. TECHNIQUE: Multiple ultrasound grayscale images of the kidneys were obtained. COMPARISON: CT abdomen and pelvis 05/18/2022 FINDINGS: The right kidney measures 12.6 x 6.8 x 6.8 cm. The left kidney measures 10.5 x 5.9 x 6.3 cm. The kidn eys demonstrate normal parenchymal echogenicity. There are cysts in the kidneys measuring up to 10.9 cm on the left. There is no hydronephrosis. The bladder is decompressed by a Orosco catheter. IMPRESSION: 1. Normal kidney sizes. No hydronephrosis. Reviewed, dictated and finalized at location A. L INSPECTOR
--- NOTE | ~2022-05-18 | CT_ITS ---
EXAMINATION: CT brain wo con DATE: 05/18/2022 12:47 INDICATION: Unresponsive TECHNIQUE: Computed tomography (CT) of the head was performed without intravenous contrast. Sagittal and coronal reconstructions were performed. The mA was adjusted according to patient size. Iterative reconstruction technique was employed. The dose-length product was 605.33 mGy-cm. COMPARISON: None FINDINGS: No acute intracranial hemorrhage, acute infarction or abnormal extra axial fluid collection. There is mild scattered white matter hypoattenuation consistent with chronic small vessel ischemic disease. Ventricles are normal and symmetric. No mass/mass effect. Mucosal thickening in the bilateral ethmoid sinuses with minimal dependently layering fluid/mucus in the right maxillary and bilateral sphenoid sinuses. Trace amount fluid in the bilateral mastoid air cells. Orbits are normal. Intracranial calci fied cerebral atherosclerosis is noted. IMPRESSION: 1. Scattered white matter hypoattenuation consistent with chronic small vessel ischemic disease. No o ther acute intracranial process. Reviewed, dictated and finalized at location A. RANCE CLAIMS SUPERVISOR IMPRESSION: 1. Scattered white matter hypoattenuation consistent with chronic small vessel ischemic disease. No other acute intracranial process.
--- NOTE | ~2022-05-18 | XR_ITS ---
EXAMINATION: XR chest 1V portable DATE: 05/24/2022 05:42 INDICATION: Respiratory failure. TECHNIQUE: A single frontal view of the chest was obtained. COMPARISON: Chest single view 05/23/2022 FINDINGS: There are airspace opacities in the perihilar regions and lung bases. There are small pleur al effusions. No pneumothorax. Cardiomegaly is noted. There is a left chest wall pacer with leads in the right atrium and right ventricle. The endotracheal tube tip is 7.1 cm above the bob. The nasog astric tube tip is beyond the inferior margin of the radiograph, but at least to the stomach. There i s an old healed left rib fracture. IMPRESSION: 1. Airspace opacities in the perihilar regions and lung bases with interval improvement, consistent w ith atelectasis versus pulmonary edema versus pneumonia. 2. Stable small pleural effusions. 3. Cardiomegaly. Reviewed, dictated and finalized at location A. LE CASER IMPRESSION: 1. Airspace opacities in the perihilar regions and lung bases with interval imp rovement, consistent with atelectasis versus pulmonary edema versus pneumonia. 2. Stable small pleural effusions. 3. Cardiomegaly.
--- NOTE | ~2022-05-18 | XR_ITS ---
XR chest 1V portable DATE: 05/22/2022 06:07 INDICATION: Respiratory failure TECHNIQUE: Portable AP chest on 05/22/2022 at 0544 hours COMPARISON: 05/21/2022 portable AP chest at 0545 FINDINGS: ET tube is approximately 5.7 cm (. An NG tube noted passing into the stomach. No central lines. Left transvenous pacemaker device with leads overlying right atrium and right ventricle. Cardiomegaly. Pulmonary vascular congestion and redistribution. There are bilateral infiltrates which are more prominent centrally and in the lower lung zones, especially left lower lobe. There is mild improvement of bilateral infiltrates since 05/16. IMPRESSION: Cardiomegaly, congestive changes, bilateral infiltrates; mild improvement of bilateral in filtrates and left lower lobe since 05/21/2022 Reviewed, dictated and finalized at location A. AND GROOVE MACHINE OPERATOR IMPRESSION: Cardiomegaly, congestive changes, bilateral infiltrates; mild impro vement of bilateral infiltrates and left lower lobe since 05/21/2022
--- NOTE | ~2022-05-18 | CT_ITS ---
EXAMINATION: CT brain wo con DATE: 05/21/2022 10:32 INDICATION: Anoxic brain injury TECHNIQUE: Computed tomography (CT) of the head was performed without intravenous contrast. The mA wa s adjusted according to patient size. Iterative reconstruction technique was employed. Exam dose: 68 1.00 mGy-cm total exam DLP. COMPARISON: 05/18/2022 CT brain FINDINGS: Examination is limited due to motion artifact. No intracranial mass lesion or hemorrhage or cerebrovascular accident is detected. No midline shift. Compared to 05/18/2022 the cortical sulci are not well-defined, suggesting diffuse bilateral cerebral edema. No subdural or epidural hematoma. Normal ventricular size. Fluid level of right maxillary sinus. Prominent patchy opacification of the ethmoid air cells. Promin ent mucoperiosteal thickening of the sphenoid sinuses. Mild mucoperiosteal thickening of the left max illary sinus. There are some opacified mastoid air cells bilaterally. No fracture or bone destruction of the cranial vault. IMPRESSION: Limited examination due to motion; no intracranial mass lesion or hemorrhage or midline shift Bilateral loss of cortical sulci suggesting bilateral diffuse cerebral edema Reviewed, dictated and finalized at Location A. Reviewed, dictated and finalized at location A. ER PLATER
--- NOTE | ~2022-05-18 | CT_ITS ---
EXAMINATION: CTA chest PE protocol DATE: 05/18/2022 10:32 HOTEL DIRECTOR INDICATION: Patient found unresponsive. Pneumonia. TECHNIQUE: Computed tomographic angiography (CTA) of the chest was performed with 100 mL Omnipaque-35 0 intravenous contrast. The dose-length product was 1248.17 mGy-cm. Maximum intensity projection 3D-r econstructions of the aorta and other arteries were constructed by the technologist on a separate wor kstation. Automated exposure control and iterative reconstruction technique were employed. COMPARISON: CT dated 05/03/2022. FINDINGS: Cardiomegaly. Study is limited for evaluation of peripheral pulmonary arteries due to motio n artifact and contrast bolus timing. There is filling defect in right lower lobe segmental pulmonary artery consistent with pulmonary embolism. No filling defects in the left main pulmonary artery. The re is gynecomastia. There is extensive consolidation of the right lung. There is extensive patchy temi undglass opacification throughout the left lung and right upper lobe. Findings may represent pneumoni a and/or edema. Endotracheal tube is present. No pneumothorax. There is soft tissue in the left parar enal space posterior to the kidneys causing mild mass effect. Recommend correlation with CT abdomen f or complete evaluation. There is mild thoracic spondylosis. No acute fracture. No focal lytic or pierre tic lesions. IMPRESSION: 1. Lung defect right lower lobe segmental and subsegmental pulmonary arteries consistent with pulmona ry embolism. 2: Extensive bilateral consolidation with groundglass opacification which may relate to edema and/or pneumonia. 3: Moderate pleural effusions. 4: Abnormal soft tissue posterior to the left kidney involving the perinephric space. Cannot exclude renal hemorrhage or infection. Recommend correlation with CT abdomen. Reviewed, dictated and finalized at location B. L DIRECTOR IMPRESSION: 1. Lung defect right lower lobe segmental and subsegmental pulmonary arteries c onsistent with pulmonary embolism. 2: Extensive bilateral consolidation with groundglass opacification which may relate to edema and/or pneumonia. 3: Moderate pleural effusions. 4: Abnormal soft tissue posterior to the left kidney involving the perinephric space. Cannot exclude renal hemorrhage or infection. Recommend correlation wit h CT abdomen.
--- NOTE | ~2022-05-18 | XR_ITS ---
XR chest 1V portable DATE: 05/21/2022 06:01 INDICATION: Respiratory failure TECHNIQUE: Portable AP chest on 05/21/2022 at 0545 hours COMPARISON: 05/20/2022 portable AP chest at 0537 hours FINDINGS: Cardiomegaly. Pulmonary vascular congestion and redistribution. Mild prominence of minor fi ssure suggesting subpleural edema. Bilateral central and lower lung zone infiltrates, most prominent in the left lower lobe B be some at electasis and/or consolidation. Mild pleural effusions are suggested. No pneumothorax. Left-sided/defibrillator device with leads overlying right atrium and right ventricle. No pneumothora x. IMPRESSION: Congestive heart failure, bilateral infiltrates, most prominent in left lower lobe. Infil trate is increased in the right lower lung since 05/16/2022. Reviewed, dictated and finalized at location A. CIATE STORE MANAGER IMPRESSION: Congestive heart failure, bilateral infiltrates, most prominent in left lower lobe. Infiltrate is increased in the right lower lung since 05/16/20 22.
--- NOTE | ~2022-05-18 | US_ITS ---
EXAMINATION: US venous doppler [facility] DATE: 05/19/2022 09:30 INDICATION: Bilateral lower limb swelling TECHNIQUE: Grayscale ultrasound images without and with compression and Doppler ultrasound images of the bilateral lower extremity veins were obtained. COMPARISON: None. FINDINGS: The visualized portions of right common femoral vein, profunda (deep) femoral vein, femoral vein, pop liteal vein, posterior tibial veins, peroneal veins and greater saphenous vein outflow are patent. Noncompressible thrombus is seen in the left common femoral vein, profunda femoral vein, femoral vein , popliteal vein, posterior tibial veins, peroneal veins and greater saphenous vein outflow are paten t. IMPRESSION: 1. No deep venous thrombosis in the right lower limb. 2. Extensive deep venous thrombosis throughout the left lower limb, both above and [id number]. Fi ndings were discussed with Ania Louie, the nurse caring for the patient, at 9:45 AM. Reviewed, dictated and finalized at location A. E EXTRA IMPRESSION: 1. No deep venous thrombosis in the right lower limb. 2. Extensive deep venous thrombosis throughout the left lower limb, both above and [id number]. Findings were discussed with Ania Louie, the nurse jason fernandez for the patient, at 9:45 AM.
--- NOTE | 2022-05-18 08:00 | PC.NURSE ---
Pt arrived non-responsive. Pt has SR on monitor. Pt being bagged by EMS.
--- NOTE | 2022-05-18 08:06 | ECG_ITS ---
Measurements Intervals [place]ley Rate: 81 P: OK: 0 QRS: -28 QRSD: 141 T: 136 QT: 435 QTc: 506 Interpretive Statements ELECTRONIC VENTRICULAR PACEMAKER WITH INHIBITION UNDERLYING ATRIAL FIBRILLATION INTRAVENTRICULAR CONDUCTION DELAY BORDERLINE ST-T WAVE ABNORMALITY- HIGH LATERAL LEADS BASELINE ARTIFACT- V6 NO FURTHER INTERPRETATION IS POSSIBLE ABNORMAL ECG COMPARED TO ECG 05/03/2022 21:01:56 ELECTRONIC VENTRICULAR PACEMAKER COMPLEXES NOW PRESENT Electronically Signed On 05-18-2022 9:06:01 BRAILLE OPERATOR by Daniel Mott D.O.
[2022-05-18] MEDS: NOREPINEPHRINE 8 MG/D5W 250 ML 8 MG/250 ML BAG 9.38 MG IV CONT (08:17)
--- NOTE | 2022-05-18 08:22 | ED.GENADULT ---
HPI - General Adult General Chief complaint: Cardiac Arrest/CPR Stated complaint: ROSC Time Seen by Provider: 05/18/22 08:06 History of Present Illness HPI narrative: 56-year-old male with a history of CHF, hypertension, atrial fibrillation and VTE maintained on chronic anticoagulation, type 2 diabetes mellitus presents to the emergency department via EMS after he was found unresponsive and pulseless at the [facility] where he is staying. Medics state that he was initially in asystole but then they noted V. fib on the monitor. ACLS interventions included epinephrine x4 and defibrillation. On arrival patient has a wide-complex atrial fibrillation with pacer spikes noted. Peripheral IV access and nor epi started. Orosco catheter has returned no urine although confident that it is placed in the bladder. Recent lab results show good renal function and a recent discharge after admission for CHF exacerbation. No further history available at this time. Related Data Home Medications Medication Instructions Recorded Confirmed allopurinol 100 mg tablet 100 mg PO BID 05/04/22 05/04/22 amiodarone 200 mg tablet 200 mg PO DAILY 05/04/22 05/04/22 carvedilol 25 mg tablet 12.5 mg PO DAILY 05/04/22 05/04/22 digoxin 125 mcg (0.125 mg) tablet 125 mcg PO DAILY 05/04/22 05/04/22 furosemide 40 mg tablet 40 mg PO DAILY 05/04/22 05/04/22 sacubitril 24 mg-valsartan 26 mg 1 tablet PO DAILY 05/04/22 05/04/22 tablet (Entresto) warfarin 1 mg tablet 1 mg PO DAILY 05/04/22 05/04/22 warfarin 5 mg tablet 5 mg PO DAILY 05/04/22 05/04/22 Allergies Allergy/AdvReac Type Severity Reaction Status Date / Time heparin Allergy Severe Other Verified 01/20/18 08:47 EGG [employer]STITUTE AdvReac Intermediate Itching Uncoded 01/20/18 08:47 Review of Systems Review of Systems: Unable to obtain [facility] Past Medical History Medical History Afib CHF (congestive heart failure) Chronic anticoagulation Diabetes DVT (deep venous thrombosis) Gout Hypertension Family History Family History Father Acute myocardial infarction Sibling History of blood clots Mother Hypertension Cerebrovascular accident Social History Social History Social History: patient currently lives at home with his they have had 3 kids together. His Kyra is his surrogate. He wishes to be a full code at this time and denies any pets. Smoking status: Never smoker Alcohol intake: never Substance use: never Lack of Transportation: YES Lack of Food: Never True Current Housing: I Have Housing Concerned About Future Housing: No Difficulty Paying Gas/Electric Bills: No Difficulty Paying for Meds: No Currently Unemployed: No Education: Bachelor's Degree Difficulty w/ Childcare or Family Care: No Gender identity (if verbalized by the patient): Male Sexual Orientation (if Verbalized by the Patient): Straight or Heterosexual Spiritual care concerns: No Agree to blood products: Yes Exam Narrative: GENERAL: Unresponsive and morbidly obese HEAD: Normocephalic, atraumatic. EYES: PERRLA and EOMI. ENT: Nares clear, no rhinorrhea or epistaxis. Mucous membranes moist. NECK: Supple. CHEST: Mechanical breath sounds through LMA HEART: Regular rate and rhythm. No murmur heard. Normal peripheral pulses. ABDOMEN: Soft, nontender, nondistended, normal active bowel sounds. EXTREMITIES: Cool and dry NEURO: GCS of 3 Course Vital Signs Vital signs: Vital Signs Temperature 96.3 F L 05/18/22 08:03 Pulse Rate 96 05/18/22 08:03 Respiratory Rate 21 H 05/18/22 08:03 Blood Pressure 63/50 L 05/18/22 08:03 Pulse Oximetry 97 05/18/22 08:03 Oxygen Delivery Bag Valve Mask 05/18/22 08:03 Temperature 98.4 F 05/18/22 10:45 Pulse Rate 88 05/18/22 15:32 Respiratory Rate 16 05/18/22 10:20 Blood
--- NOTE | 2022-05-18 08:23 | PC.NURSE ---
harvey temp cath inserted. No urine draining into bag. Pt depends are non-saturated on arrival.
--- NOTE | 2022-05-18 08:26 | PC.NURSE ---
Heating blanket applied.
[2022-05-18 08:33] LABS: Basophils Percent Auto 0.6 % (0.2-1.2); Eosinophils Percent Auto 1.1 % (0-4.4); Hematocrit 37.7 % (42.0-52.0); Hemoglobin 9.6 g/dL (14.0-18.0); Immature Granulocyte Absolute 0.17 K/mm3 (0.00-0.031); Immature Granulocyte Percent A 4.9 % (0-0.5); Lymphocytes Absolute Auto 0.88 K/mm3 (0.9-3.2); Lymphocytes Percent Auto 25.1 % (18.3-44.2); Mean Corpuscular HGB Conc 25.5 g/dl (32-36); Mean Corpuscular Hemoglobin 26.9 pg (26-34); Mean Corpuscular Volume 105.6 fl (80-100); Mean Platelet Volume 11.8 fl (7.4-10.4); Monocytes Absolute Auto 0.3 K/mm3 (0.1-0.6); Monocytes Percent Auto 8.3 % (2.6-8.5); Neutrophils Absolute Auto 2.1 K/mm3 (1.3-6.7); Nucleated Red Blood Cells Perc 0.9 % (0.0-0.2); Platelet Count Result 170 k/mm3 (150-375); Red Blood Count 3.57 M/mm3 (4.6-6.20); Red Cell Distribution Width 18.5 % (11.5-14.5); White Blood Count 3.5 K/mm3 (4.5-10.0)
[2022-05-18 08:43] LABS: Magnesium 2.3 mg/dL (1.6-2.3)
[2022-05-18 08:46] LABS: Digoxin 0.6 ng/mL (0.8-2.0)
[2022-05-18 08:48] LABS: INR 3.8; Prothrombin Time 36.3 Seconds (11.1-14.7)
--- NOTE | 2022-05-18 08:48 | PC.NURSE ---
Dr Chapa intubated with a 7.5 ETT tube 25 noted at the lip. Chest rise and fall without difficulty patient perfusing well.
--- NOTE | 2022-05-18 08:48 | PC.NURSE ---
Dr Chapa intubated patient. Tube marked at 25. Pt tolerated well. RT in the room. 19 5.9 [id number]
[2022-05-18 08:49] LABS: Partial Thromboplastin Time 59.8 SECONDS (22.3-36.8)
[2022-05-18 08:53] LABS: LDL Cholesterol Direct 96 mg/dL
[2022-05-18 08:54] LABS: NT Pro B Type Natriuretic Pept 7660 pg/mL (5-100)
[2022-05-18 08:55] LABS: Macrocytosis 1+ (NORMAL); Platelet Estimate Adequate (Adequate); Polychromasia 1+ (NORMAL)
[2022-05-18 08:56] LABS: Schistocytes None Seen (NORMAL)
[2022-05-18] MEDS: FUROSEMIDE INJ 40 MG/4 ML VIAL IV PUSH (09:01)
[2022-05-18 09:16] LABS: Albumin Level 3.5 g/dL (3.5-5.1); Alkaline Phosphatase 68 U/L (38-126); Bilirubin,Total 0.9 mg/dL (0.2-1.3); Blood Urea Nitrogen 25 mg/dL (9-20); Calcium 8.5 mg/dL (8.4-10.2); Carbon Dioxide > 40 mmol/L (22-30); Chloride 96 mmol/L (98-107); Cholesterol 159 mg/dL (0-200); Estimated Glomerular Filt Rate > 60; Glucose 93 mg/dL (65-110); HDL Direct 30 mg/dL; Sodium 147 mmol/L (137-145); Triglycerides 75 mg/dL (<150); Troponin I 0.056 ng/mL (0.000-0.034)
[2022-05-18] MEDS: FUROSEMIDE INJ 40 MG/4 ML VIAL 20 MG IV PUSH (09:54)
[2022-05-18 09:59] LABS: SARS-CoV-2 RNA PCR Negative
[2022-05-18 10:04] LABS: Alanine Aminotransferase 2807 U/L (6-50); Aspartate Amino Transferase 4897 U/L (17-59)
[2022-05-18 11:35] LABS: Troponin I 0.357 ng/mL (0.000-0.034)
--- NOTE | 2022-05-18 11:45 | WPDCNINT ---
Assessment and Plan Assessment and plan (1) Acute respiratory failure: Code(s): J96.00 - Acute respiratory failure, unspecified whether with hypoxia or hypercapnia Status: Acute Assessment and Plan: Acute Respiratory failure secondary to cardiac arrest, extensive bilateral consolidation could be combination of pulmonary edema and/or pneumonia. Pneumonia could be aspiration, moderate pleural effusions Patient also has PE and right lower lobe segmental and subsegmental arteries Patient is already anticoagulated Now intubated and mechanical ventilation Vent settings reviewed-check ABG and will adjust accordingly CT reviewed Continue full mechanical ventilation support to prevent hypoxemia/hypercarbia and end organ damage. Low tidal volume ventilation strategy to prevent volutrauma Bronchodilators (2) Cardiac arrest: Code(s): I46.9 - Cardiac arrest, cause unspecified Status: Acute Assessment and Plan: Patient was found unresponsive and initial rhythm was asystole. Later patient went into VFib. He had a prolonged time time and received 4 doses of epinephrine and DC defibrillation Patient does have AICD which makes me wonder whether patient actually was in VFib Specific Etiology not clear as patient has multiple possible etiologies for his cardiac arrest Patient does have history of cardiomyopathy, AFib He CTA shows right lower lobe segmental and subsegmental PE. Patient already on anticoagulation. I considered thrombolytics considering patient's cardiac arrest but this PE appears to be small and not massive. He is on only few mics of Levophed and hemodynamically stable. He is already anticoagulated with supratherapeutic INR which is another relative contraindication. He has had falls at [facility] as per family. Stat echocardiogram was performed in the ER and I reviewed prelim report with Dr. Cueto. His RV does not show signs of acute right failure. He does have pulmonary hypertension and has global hypokinesia with EF of 30-35% suggesting against PE to be the hemodynamic issue. At this point I believe the risks from potential bleeding from tPA are higher than the benefit he is going to receive from tPA He also has history of sleep apnea and history of hypercarbic respiratory failure and has not been using his CPAP or BiPAP for many days Serial troponins are being done Full echo report is pending Consult cardiology (3) Pulmonary embolism: Code(s): I26.99 - Other pulmonary embolism without acute cor pulmonale Status: Acute Assessment and Plan: CTA shows right lower lobe segmental and sub segmental pulmonary artery embolism Patient does have a history of DVT is on anticoagulation Check lower extremity Dopplers See above (4) Pneumonia: Code(s): J18.9 - Pneumonia, unspecified organism Status: Acute Assessment and Plan: Patient has bilateral consolidation which could be combination of pulmonary edema and pneumonia Patient may have aspirated as he was unresponsive Antibiotics as above (5) Pleural effusion: Code(s): J90 - Pleural effusion, not elsewhere classified Status: Acute Assessment and Plan: See above Hold diuretics at this time (6) Afib: Code(s): I48.91 - Unspecified atrial fibrillation Status: Acute Assessment and Plan: Currently in controlled ventricular rate Already anticoagulated Continue digoxin amiodarone (7) Diabetes: Code(s): E11.9 - Type 2 diabetes mellitus without complications Status: Acute Assessment and Plan: Sliding scale insulin (8) Encephalopathy: Code(s): G93.40 - Encephalopathy, unspecified Status: Acute Assessment and Plan: Head CT - Scattered white matter hypoattenuation consistent with chronic small vessel ischemic disease. No other acute intracranial process Likely hypoxic injury Unknown down time with asystole as presenting rhythm Will will order mo
--- NOTE | 2022-05-18 13:45 | PM.IMHP ---
H&P: HPI History of Present Illness Date/Time: 05/18/22 13:45 Chief Complaint: Cardiac arrest. Narrative: This is a 56-year-old male with congestive heart failure, atrial fibrillation on chronic anticoagulation, diabetes, hypertension, and history of DVT and pulmonary embolism who presented to the emergency department via EMS after he was found and cardiac arrest the halfway. He is currently intubated and on mechanical ventilation and is unable to provide any history and as such all of the following is obtained via a review of his electronic medical records. He was just discharged from the hospital on 05/10/2022 after a week stay in which he was treated for acute on chronic CHF exacerbation. CTA of the chest at that time showed no evidence of PE and his echocardiogram showed mildly reduced EF of 45 to 50% with no mention of wall motion abnormalities. He diuresed well with symptomatic improvement and was discharged back to the halfway. He saw the nurse practitioner for [facility] cardiology on 05/14/2022 and his furosemide was increased a bit due to weight gain. reports that he seemed to be more tired and weak yesterday and did not eat much in the way of lunch which is unusual for him. This morning he was reportedly in his usual state of health at 06:00 however at 07:15 when staff went to check on him he was found unresponsive, not breathing, and pulseless. On EMS arrival he was initially in asystole, then PEA, and eventually was in ventricular fibrillation for which he was defibrillated. After 4 rounds of epinephrine he apparently had return of spontaneous circulation and on arrival to the ER he was in a wide complex tachycardia. Blood pressures were soft on arrival but have responded to IV fluids and he is currently requiring a low dose of norepinephrine to maintain his blood pressures. Chest CTA today showed a lung defects in the right lower lobe segmental and subsegmental pulmonary arteries consistent with pulmonary embolism and extensive bilateral consolidation with ground-glass opacification which may relate to edema and/or pneumonia as well as moderate pleural effusions and abnormal soft tissue posterior to the left kidney involving perinephric space which could be renal hemorrhage or infection. Subsequent CT of the abdomen and pelvis showed and 11.3 centimeter cyst in left kidney, wall thickening of the rectum consistent with proctitis, moderate size pleural effusions, and a sacral decubitus ulcer with likely chronic osteomyelitis of the sacrum and coccyx. Labs were significant for stable and mild neutropenia and macrocytic anemia. AST and ALT were markedly elevated at 4897 in 210 respectively. Highest troponin thus far has been 2.240 and proBNP was 7660. He has since been admitted to the ICU and has been started on broad-spectrum antibiotics to include imipenem and vancomycin for suspected pneumonia. Review of Systems Review of Systems: Unable to be obtained as he is currently intubated and on mechanical ventilation. [facility] Past Medical History Medical History Chronic anticoagulation Combined systolic and diastolic cardiac dysfunction Coronary artery disease Deep venous thrombosis Gout History of [place] (myocardial infarction) 07/2015, with occlusion of the distal Left anterior descending and diagonal branch, thought to be embolic. Hypertension Nonischemic cardiomyopathy Obstructive sleep apnea on CPAP Persistent atrial fibrillation Pulmonary embolism Type 2 diabetes mellitus Surgical History Surgical History History of cholecystectomy History of colonoscopy with polypectomy History of hernia repair ICD (implantable cardioverter-defibrillator) in place Medtronic dual-chamber ICD implanted 06/2017.p History of inappropriate ICD shocks due to AFib RVR; followed by Dr. Quach in the past. Family History Family History (R
[2022-05-18] MEDS: PERFLUTREN LIPID MICROSPHERES 1.5 ML VIAL DILUTED TO 10 ML TOTAL VOLUME IV PUSH (14:00)
[2022-05-18 15:29] LABS: Alveolar/Arterial O2 Gradient 566.3 mmHg; Base Excess ABG 10.1 mEq/l (+/-2.0); Fractional Inspired Oxygen 100 %; HCO3 ABG 35.1 mEq/l (22.0-26.0); Oxygen Content ABG 13.9 %vol (16.0-22.0); Oxygen Saturation ABG 97.6 % (95.0-100.0); Oxyhemoglobin 96.5 % THb (90.0-100.0); PCO2 ABG 49.9 mmHg (35.0-45.0); PO2 ABG 96.8 mmHg (80.0-100.0); PO2 FiO2 Ratio Arterial Blood 0.97 %; Total Hemoglobin 10.1 g/dL (12.0-18.0); pH ABG 7.465 (7.350-7.450)
[2022-05-18 15:30] LABS: Device VENTILATOR; Modified Allen's Test Pass; Site Drawn RIGHT RADIAL
[2022-05-18 15:31] LABS: Arterial Blood Gas PEEP 5 cmH2O; Arterial Blood Gas Tidal Volume 460 ml; Arterial Blood Gas Vent Mode CMV; Arterial Blood Gas Ventilator rate 16 /MIN
--- NOTE | 2022-05-18 16:04 | PM.CNCAR ---
Assessment and Plan Assessment and plan (1) Cardiac arrest: Code(s): I46.9 - Cardiac arrest, cause unspecified Status: Acute Assessment and Plan: Status post PEA cardiac arrest, unclear how long the patient was down prior to resuscitation. Patient remains unresponsive so he may have neurologic damage. and sister aware. Etiology unclear but may have penumonia and septic shock. Did have a small PE also. Poor cardiac function contributing; Cardiogenic shock is also possibility but patient does not appear to have had a STEMI. Also he has apparently not been using his CPAP so this may have started out as hypercarbic respiratory failure the devolved into a PEA arrest. (2) Shock: Code(s): R57.9 - Shock, unspecified Status: Acute Assessment and Plan: Patient in shock on IV fluids and Levophed. May have septic shock severely elevated liver enzymes, possible shock liver. Also has FERNANDA Continue supportive care. (3) Pulmonary embolism: Code(s): I26.99 - Other pulmonary embolism without acute cor pulmonale Status: Acute Assessment and Plan: Does have a small PE which may be contributing factor but, in view of fairly normal appearing right ventricular function and reasonable on oxygenation it is not likely the main problem. Already anticoagulated (4) Acute on chronic combined systolic and diastolic CHF (congestive heart failure): Code(s): I50.43 - Acute on chronic combined systolic (congestive) and diastolic (congestive) heart failure Status: Acute Assessment and Plan: Acute on chronic CHF with edema and pleural effusions. Diurese when blood pressure more stable. (5) ICD (implantable cardioverter-defibrillator) in place: Code(s): Z95.810 - Presence of automatic (implantable) cardiac defibrillator Status: Acute Assessment and Plan: Will interrogate ICD but this does not appear a primarily arrhythmogenic arrest. (6) Nonischemic cardiomyopathy: Code(s): I42.8 - Other cardiomyopathies Status: Acute Assessment and Plan: Long h/o nonischemic cardiomyopathy adn CHF. EF 30-35% Resume usual CHF meds when BP stable (7) Afib: Code(s): I48.91 - Unspecified atrial fibrillation Status: Acute Assessment and Plan: Persistent atrial fibrillation, rate controlled, on anticoagulation with warfarin. Heart rate controlled with digoxin, carvedilol and amiodarone Mildly over anticoagulated Digoxin level OK, 0.6. History of Present Illness History of Present Illness Consult date/time: 05/18/22 16:04 Reason For Visit: Pulmonary Embolism/Cardiac Arrest/Congestive Heart Narrative: Johnnie Mary is a 56 y.o. male whom I was asked to see at the request of Dr. Acosta for my advice and opinion regarding his cardiac arrest, in consultation. He is followed by Dr. Melgoza for his nonischemic cardiomyopathy, chronic systolic/diastolic CHF, chronic atrial Fib, Medtronic ICD, and history of [place] in 2016 likely due to an embolic occlusion of the distal left anterior descending and diagonal. He also has a history of DVT/ PE on chronic anticoagulation with warfarin questionable history of HIT, CKD, morbid obesity, sleep apnea on CPAP. The patient's tells me that he has been chronically ill for the last 3 years, and has been home for a total of 45 minutes this year; otherwise he's beenin the hospital or in his halfway. He is WC-bound. He was hospitalized at [facility] in [place] in February for metabolic encephalopathy, sepsis, possible sacral osteomyelitis and had a left lower extremity DVT while on Xarelto (although compliance cannot be confirmed). He was hospitalized [facility] in early April for weakness and falls, CHF and mild anemia. He was seen by our nurse practitioner in our office on 05/14/2022. He had a mild weight gain and she asked him to increase h
[2022-05-18 16:09] LABS: Appearance Urine Cloudy (Clear); Bilirubin Urine Negative (Negative); Blood Urine 2+ (Negative); Color Urine Yellow (Yellow); Glucose Urine UA Negative (Negative); Ketones Urine Negative (Negative); Leukocyte Esterase Ur Negative LEU/UL (Negative); Nitrate Urine Negative (Negative); Protein Urine 3+ mg/dL (Negative)
[2022-05-18 16:17] LABS: Creatine Kinase 78 U/L (55-170)
[2022-05-18 16:18] LABS: Lactic Acid Reflex 2.7 mmol/L (0.7-2.0)
[2022-05-18 16:18] LABS: Add Urine Microscopic? YES; Bacteria Urine Trace /hpf; Mucus Urine Rare /lpf; RBC Urine >75 /hpf (0-2); Squamous Epithelial Cell Urine Few /hpf (Few); WBC Urine 16-20 /hpf
[2022-05-18] MEDS: FENTANYL 2,500MCG/NS250ML(*CRX 2,500 MCG/250 ML BAG IV CONT (16:58)
[2022-05-18 17:04] LABS: Procalcitonin 5.4 ng/mL
[2022-05-18 17:59] LABS: Glucose Point of Care 141 mg/dl (65-105)
--- NOTE | 2022-05-18 18:00 | ADMGEN ---
This patient, Johnnie Wilson, was admitted to Intensive Care Unit-9. Patient/family oriented to hospital policies and general routines including ID bracelet, bed and alarms, visiting hours, pain management, procedures, bathroom and other care routines, personal items, smoking policy, room service/diet, and visiting hours. Information on how to activate the Rapid Response Team has been discussed. Patient/Family are encouraged to report perceived risks to care and to ask questions if they do not understand what they are told or what they should do.
[2022-05-18] MEDS: PROPOFOL IV EMULSION 100 ML 4.8 MG IV CONT (18:37)
[2022-05-18] MEDS: SODIUM CHLORIDE 0.9% IV 1,000 ML 125 ML IV CONT (18:40)
[2022-05-18 18:56] LABS: Reflex Lactic Acid Yes or No Add Lactic
[2022-05-18 20:28] LABS: Glucose Point of Care 129 mg/dl (65-105)
[2022-05-18] MEDS: MINERAL OIL/WHITE PETROLATUM OINTMENT 1 APPLIC EACH EYE (20:28)
[2022-05-18 21:29] LABS: Lactic Acid 1.7 mmol/L (0.7-2.0)
[2022-05-18] MEDS: CENTRAL LINE FLUSH 10 ML IV PUSH (22:28)
[2022-05-19] VITALS (29 sets, daily range): BP systolic 99–159; BP diastolic 70–112; PULSE 58–93; RESP 15–19; TEMP 35.5–37.8; O2SAT 100; BMI 38.7
[2022-05-19 00:07] LABS: Glucose Point of Care 148 mg/dl (65-105)
[2022-05-19] MEDS: PROPOFOL IV EMULSION 100 ML 19.2 MG IV CONT ×2 (01:14→06:33)
[2022-05-19] MEDS: SODIUM CHLORIDE 0.9% IV 1,000 ML 125 ML IV CONT (03:03)
[2022-05-19 04:30] LABS: Glucose Point of Care 105 mg/dl (65-105)
[2022-05-19 05:09] LABS: Prothrombin Time 56.1 Seconds (11.1-14.7)
[2022-05-19 05:19] LABS: Basophils Percent Auto 0.4 % (0.2-1.2); Eosinophils Absolute Auto 0.1 K/mm3 (0-0.3); Eosinophils Percent Auto 1.5 % (0-4.4); Hematocrit 30.1 % (42.0-52.0); Hemoglobin 8.6 g/dL (14.0-18.0); Immature Granulocyte Absolute 0.02 K/mm3 (0.00-0.031); Immature Granulocyte Percent A 0.4 % (0-0.5); Lymphocytes Absolute Auto 0.82 K/mm3 (0.9-3.2); Lymphocytes Percent Auto 17.8 % (18.3-44.2); Mean Corpuscular HGB Conc 28.6 g/dl (32-36); Mean Corpuscular Hemoglobin 26.9 pg (26-34); Mean Corpuscular Volume 94.1 fl (80-100); Monocytes Absolute Auto 0.7 K/mm3 (0.1-0.6); Monocytes Percent Auto 15.6 % (2.6-8.5); Neutrophils Percent Auto 64.3 % (45.5-73.1); Platelet Count Result 132 k/mm3 (150-375); Red Cell Distribution Width 19.1 % (11.5-14.5); White Blood Count 4.6 K/mm3 (4.5-10.0)
[2022-05-19 05:39] LABS: Albumin Level 2.9 g/dL (3.5-5.1); Alkaline Phosphatase 93 U/L (38-126); Bilirubin,Total 1.6 mg/dL (0.2-1.3); Blood Urea Nitrogen 46 mg/dL (9-20); Calcium 8.4 mg/dL (8.4-10.2); Carbon Dioxide > 40 mmol/L (22-30); Chloride 96 mmol/L (98-107); Estimated CRCL calculation 55 ml/min; Estimated Glomerular Filt Rate 40; Glucose 106 mg/dL (65-110); Magnesium 1.9 mg/dL (1.6-2.3); Phosphorus 3.5 mg/dL (2.5-4.5); Potassium 4.1 mmol/L (3.4-5.0); Sodium 138 mmol/L (137-145)
[2022-05-19 05:41] LABS: Anisocytosis 1+ (NORMAL); Hypochromasia 1+ (NORMAL)
[2022-05-19 05:50] LABS: Schistocytes None Seen (NORMAL)
[2022-05-19 05:52] LABS: INR 6.6
[2022-05-19 05:57] LABS: Alanine Aminotransferase 2930 U/L (6-50); Aspartate Amino Transferase 5465 U/L (17-59)
[2022-05-19] MEDS: CENTRAL LINE FLUSH 10 ML IV PUSH ×3 (06:04→20:36)
[2022-05-19 06:05] LABS: Alveolar/Arterial O2 Gradient 111.4 mmHg; Carboxyhemoglobin 0.3 % THb (0-2.0); Fractional Inspired Oxygen 40 %; HCO3 ABG 43.9 mEq/l (22.0-26.0); Methemoglobin ABG 0.1 %THb (0-1.5); Oxygen Content ABG 13.9 %vol (16.0-22.0); Oxygen Saturation ABG 97.3 % (95.0-100.0); PO2 ABG 97.1 mmHg (80.0-100.0); PO2 FiO2 Ratio Arterial Blood 2.43 %; Reduced Hemoglobin 3.6 %THb (0-5.0); Total Hemoglobin 10.2 g/dL (12.0-18.0); pH ABG 7.436 (7.350-7.450)
[2022-05-19 06:06] LABS: Device VENTILATOR; Modified Allen's Test Pass; PCO2 ABG 66.7 mmHg (35.0-45.0); Site Drawn RIGHT RADIAL
[2022-05-19 06:07] LABS: Arterial Blood Gas PEEP 8 cmH2O; Arterial Blood Gas Tidal Volume 400 ml; Arterial Blood Gas Vent Mode CMV; Arterial Blood Gas Ventilator rate 18 /MIN
[2022-05-19 07:25] LABS: Glucose Point of Care 85 mg/dl (65-105)
[2022-05-19 08:03] LABS: Creatine Kinase 97 U/L (55-170)
--- NOTE | 2022-05-19 08:46 | WPDNEURCNPN ---
Assessment and Plan Assessment and plan (1) Encephalopathy: Code(s): G93.40 - Encephalopathy, unspecified Status: Acute (2) Hypoxic brain damage: Code(s): G93.1 - Anoxic brain damage, not elsewhere classified Status: Acute (3) Cardiac arrest: Code(s): I46.9 - Cardiac arrest, cause unspecified Status: Acute (4) Persistent atrial fibrillation: Code(s): I48.19 - Other persistent atrial fibrillation Status: Acute (5) Pulmonary embolism: Code(s): I26.99 - Other pulmonary embolism without acute cor pulmonale Status: Acute (6) Acute on chronic combined systolic and diastolic CHF (congestive heart failure): Code(s): I50.43 - Acute on chronic combined systolic (congestive) and diastolic (congestive) heart failure Status: Acute Plan Johnnie Wilson is a 56 year old male with a history of atrial fibrillation (on chronic anticoagulation with warfarin), CHF, HTN, DM presenting after being found unresponsive. Length of pulselessness is unknown, but suspect anoxic brain injury given patient's physical exam and EEG, although still on propofol and hypothermic protocol. No seizures noted on EEG; the chewing movements are likely subcortical. Course has also been complicated by multiorgan failure. Patient's at bedside, questions answered Consult date: 05/19/22 Time Seen: 08:47 Reason for consult: Anoxic brain injury HPI: Johnnie Wilson is a 56 year old male with a history of atrial fibrillation (on chronic anticoagulation with warfarin), CHF, HTN, DM presenting after being found unresponsive. Patient was recently discharged on 05/10 from [facility] after being admitted for respiratory failure in the setting of CSF exacerbated. On 05/18 patient was found unresponsive at the [place] [facility]. EMS was called and patient was asystolic. He was resuscitated, given epinephrine x 4 and defibrillation. He was brought to [facility] ED where BP was 63/50. He was intubated in the emergency room. He was found to have pulmonary embolism and pneumonia. He is presently on broad spectrum antibiotics and Levophed. He does have an ICD and is being followed by Cardiology. He had a CT head that showed scattered areas of hypoattenuation suggesting small vessel disease but no larger areas of hypodensities. He is on hypothermic protocol and is being sedated with propofol. He has been started on Keppra 1000mg BID for seizure prophylaxis. Routine EEG was done this morning which showed suppressed background and generalized slowing. Review of Systems Review of Systems: ROS unobtainable: Yes unobtainable due to endotracheal tube and unobtainable due to medical condition PMFSH Past Medical History Medical History Chronic anticoagulation Combined systolic and diastolic cardiac dysfunction Coronary artery disease Deep venous thrombosis Gout History of [place] (myocardial infarction) 07/2015, with occlusion of the distal Left anterior descending and diagonal branch, thought to be embolic. Hypertension Nonischemic cardiomyopathy Obstructive sleep apnea on CPAP Persistent atrial fibrillation Pulmonary embolism Type 2 diabetes mellitus Surgical History Surgical History History of cholecystectomy History of colonoscopy with polypectomy History of hernia repair ICD (implantable cardioverter-defibrillator) in place Medtronic dual-chamber ICD implanted 06/2017.p History of inappropriate ICD shocks due to AFib RVR; followed by Dr. Quach in the past. Family History Family History Father Acute myocardial infarction Sibling History of blood clots Mother Hypertension Cerebrovascular accident Social History Social History Social History: Surrogate medical decision maker
[2022-05-19] MEDS: PHYTONADIONE ADULT INJ 10 MG in DEXTROSE 5% IN WATER 50 ML 100 MG IVPB (08:53)
[2022-05-19] MEDS: AMIODARONE HCL 200 MG TABLET PO (08:54)
[2022-05-19] MEDS: polyethylene glycoL 3350 17 GM POWD.PACK PO (08:54)
[2022-05-19] MEDS: DIGOXIN TAB 125 MCG TABLET PO (08:54)
[2022-05-19] MEDS: PANTOPRAZOLE SODIUM IV 40 MG VIAL IV PUSH (08:55)
--- NOTE | 2022-05-19 08:55 | P.NEURO_ITS ---
Neurology EEG Report General Information Date of Study: 05/19/22 TEST Routine EEG DIAGNOSIS Anoxic brain injury CONDITION OF RECORDING Unresponsive, patient biting and chewing on ET tube EEG NUMBER [id number] CLINICAL HISTORY Patient is currently admitted in the ICU after cardiorespiratory arrest. EEG DESCRIPTION Patient is sedated and mechanically ventilated during recording. The recording is obscured by the presence of frequent chewing artifact. The background that is readable consists of very suppressed voltages, with occasional delta range rhythms. No posterior dominant rhythm is noted, nor is there an anterior- posterior gradient. No sleep architecture is noted. There are no epileptiform discharges or electrographic seizures noted during the recording. Photic stimulation was not performed. IMPRESSION This is an abnormal routine EEG due to the presence of suppressed background and generalized slowing. These findings are suggestive of encephalopathy. No epileptiform features or electrographic seizures are noted. Clinical correlation is recommended.
[2022-05-19] MEDS: MINERAL OIL/WHITE PETROLATUM OINTMENT 1 APPLIC EACH EYE ×2 (08:56→20:40)
[2022-05-19] MEDS: ACETAMINOPHEN ELIXIR 325 MG/10.15 ML UDC 650 MG PO (08:59)
[2022-05-19] MEDS: levETIRAcetam 1000MG/NACL100ML 1,000 MG/100 ML BAG 400 MG IVPB ×2 (09:00→20:36)
[2022-05-19] MEDS: SODIUM CHLORIDE 0.9% IV 1,000 ML 100 ML IV CONT (09:00)
[2022-05-19] MEDS: ALBUMIN HUMAN 5% 25 GM/500 ML BTL IV CONT (09:48)
[2022-05-19] MEDS: SILVERGEL (ELTA) 45 ML 1 APPLIC TOPICAL (09:49)
--- NOTE | 2022-05-19 11:57 | WPDINTPN ---
Progress Note: A&P Assessment and Plan (1) Acute respiratory failure: Code(s): J96.00 - Acute respiratory failure, unspecified whether with hypoxia or hypercapnia Status: Acute Assessment and Plan: Acute Respiratory failure secondary to cardiac arrest, extensive bilateral consolidation could be combination of pulmonary edema and/or pneumonia. Pneumonia could be aspiration, moderate pleural effusions Patient also has PE and right lower lobe segmental and subsegmental arteries Patient is already anticoagulated Now intubated and mechanical ventilation Vent settings reviewed-currently on 40% FiO2 and [address] reviewed Continue full mechanical ventilation support to prevent hypoxemia/hypercarbia and end organ damage. Low tidal volume ventilation strategy to prevent volutrauma Bronchodilators Weaning will depend on his neurological improvement (2) Cardiac arrest: Code(s): I46.9 - Cardiac arrest, cause unspecified Status: Acute Assessment and Plan: Patient was found unresponsive and initial rhythm was asystole. Later patient went into VFib. He had a prolonged time time and received 4 doses of epinephrine and DC defibrillation Patient does have AICD which makes me wonder whether patient actually was in VFib Specific Etiology not clear as patient has multiple possible etiologies for his cardiac arrest Patient does have history of cardiomyopathy, AFib He CTA shows right lower lobe segmental and subsegmental PE. Patient already on anticoagulation. I considered thrombolytics considering patient's cardiac arrest but this PE appears to be small and not massive. He is on only few mics of Levophed and hemodynamically stable. He is already anticoagulated with supratherapeutic INR which is another relative contraindication. He has had falls at halfway as per family. Stat echocardiogram was performed in the ER and I reviewed prelim report with Dr. Cueto. His RV does not show signs of acute right failure. He does have pulmonary hypertension and has global hypokinesia with EF of 30-35% suggesting against PE to be the hemodynamic issue. At this point I believe the risks from potential bleeding from tPA are higher than the benefit he is going to receive from tPA He also has history of sleep apnea and history of hypercarbic respiratory failure and has not been using his CPAP or BiPAP for many days Serial troponins done and showed gradual increased Full echo report is pending Cardiology following and does not believe it to be a acute coronary event Echocardiogram Summary ? 1. Moderate left ventricular enlargement with moderate eccentric left ventricular hypertrophy.? Severe global hypokinesis with a calculated ejection fraction of 32% (visually 30-35 %).? Diastolic function is abnormal.? No segmental wall motion abnormalities. ? 2. Left atrial chamber dimension is moderately enlarged. ? 3. Right atrial chamber dimension is mildly enlarged. ? 4. There is mild tricuspid valve regurgitation. ? 5. Moderate pulmonary hypertension, estimated pulmonary arterial systo ic pressure is 62 mmHg. ? 6. Dilated inferior vena cava with >50% collapse upon inspiration consistent with elevated right atrial pressure, 15 mmHg. ? 7. Right ventricular size and systolic function is normal. ? 8. Somewhat technically difficult study; definity echo contrast used. ? 9. Indeterminate rhythm, may be atrial fibrillation. (3) Pulmonary embolism: Code(s): I26.99 - Other pulmonary embolism without acute cor pulmonale Status: Acute Assessment and Plan: CTA shows right lower lobe segmental and sub segmental pulmonary artery embolism Patient does have a history of DVT is on anticoagulation Lower extremity Doppler showed Extensive deep venous thrombosis throughout the left lower limb, both above and [id number]. (4) Pneumonia: Code(s): J18.9 - Pneumonia, unspecified organism Status: Acute Assessment and Plan: Patient
[2022-05-19 11:58] LABS: Glucose Point of Care 94 mg/dl (65-105)
--- NOTE | 2022-05-19 12:26 | PM.PNCARD ---
Progress Note: A&P Assessment and Plan (1) Cardiac arrest: Code(s): I46.9 - Cardiac arrest, cause unspecified Status: Acute Assessment and Plan: Status post PEA cardiac arrest, unclear how long the patient was down prior to resuscitation. Multiple possible etiologies. Evaluating ICD to see if this was a primary arrhythmic arrest, though was in PEA on EMS arrival. Has pneumonia and chronic respiratory failure. Has extensive left lower extremity DVT and a small PE. Poor cardiac function contributing; cardiogenic shock is also possibility. Has elevated troponin but patient does not appear to have had a STEMI. May be septic; has a UTI and chronic sacral osteo. Also he has apparently not been using his CPAP so this may have started out as hypercarbic respiratory failure which devolved into a PEA arrest. Patient remains unresponsive and appears to have encephalopathy and sister aware , now DNR (2) Shock: Code(s): R57.9 - Shock, unspecified Status: Acute Assessment and Plan: Patient was in shock on IV fluids and Levophed on admission. Levophed discontinued, blood pressure stable. (3) Pulmonary embolism: Code(s): I26.99 - Other pulmonary embolism without acute cor pulmonale Status: Acute Assessment and Plan: Extensive left lower extremity DVT with small PE Already anticoagulated; INR supratherapeutic today at 6+ (4) Acute on chronic combined systolic and diastolic CHF (congestive heart failure): Code(s): I50.43 - Acute on chronic combined systolic (congestive) and diastolic (congestive) heart failure Status: Acute Assessment and Plan: Acute on chronic CHF with edema and pleural effusions. Try IV Lasix 40 mg? (5) ICD (implantable cardioverter-defibrillator) in place: Code(s): Z95.810 - Presence of automatic (implantable) cardiac defibrillator Status: Acute Assessment and Plan: Will interrogate ICD to see if arrhythmias proceed to the patient's PEA arrest. (6) Nonischemic cardiomyopathy: Code(s): I42.8 - Other cardiomyopathies Status: Acute Assessment and Plan: Long h/o nonischemic cardiomyopathy and CHF. EF 30-35% Resume usual CHF meds -- start w/ low dose carvedilol. Hold off on Entresto due to FERNANDA. (7) Afib: Code(s): I48.91 - Unspecified atrial fibrillation Status: Acute Assessment and Plan: Persistent atrial fibrillation, rate controlled, on anticoagulation with warfarin. Heart rate controlled with digoxin, carvedilol and amiodarone INR supratherapeuticwarfarin on hold Digoxin level OK, 0.6. on admission. Since pt in ARF, will hold digoxin. (8) Acute kidney injury: Code(s): N17.9 - Acute kidney failure, unspecified Status: Acute Assessment and Plan: Not making much urine, creat rising. (9) Osteomyelitis: Code(s): M86.9 - Osteomyelitis, unspecified Status: Acute Assessment and Plan: Chronic osteo of sacrum Subjective Date/time seen: FU for PEA arrest, shock. Small PE, pneumonia, acute on chronic CHF, encephalopathy. H/O nonischemic cardiomyopathy and Medtronic ICD, followed by Dr. Melgoza. Also has persistent atrial fibrillation, history of cardioembolic [place] 07/2015, history of DVT PE on anticoagulation, questionable history of hit, CKD, morbid obesity, sleep apnea intermittently on CPAP. Sick for the last 3 years, in and out the hospital several times in 2021, [place] resident. 05/19/22 12:26 Patient remains on the ventilator. Levophed was weaned off last night. No significant arrhythmias on telemetry. No purposeful movement per RN. Not much urine output. Now a DNR. [employer] [facility] download showed some possible arrhythmias; rep will be here soon to do a more formal evaluation. Review of Systems Review of Systems: ROS obtained fr RN, Dr. Acosta and EMR as above ROS unobtainable: Yes unobtainabl
[2022-05-19] MEDS: ALBUMIN HUMAN 25% 25 GM/100 ML 100 ML IVPB ×3 (12:50→23:11)
--- NOTE | 2022-05-19 13:22 | P.CONNP_ITS ---
Assessment and Plan Assessment and plan (1) Acute kidney injury: Code(s): N17.9 - Acute kidney failure, unspecified Status: Acute Assessment and Plan: * most likely secondary to cardiac arrest and shock * suspect progression to ATN * noted drop in urine output * no critical electrolytes but volume status already an issue * evaluation to date: * renal ultrasound okay * CPK normal * remains at risk for FRAME STRIPPER/dialysis * follow trend of repeat labs and UOP (2) Cardiac arrest: Code(s): I46.9 - Cardiac arrest, cause unspecified Status: Acute Assessment and Plan: * as noted by admission history * prolonged down time suspected * etiology not clear with multiple possibilities: * hypercarbia respiratory failure due to lack of CPAP/BiPAP use * PE (although small without significant hemodynamic insult) * cardiomyopathy * cardiac event * Cardiology following * Echo results noted (3) Sepsis: Code(s): A41.9 - Sepsis, unspecified organism Status: Acute Assessment and Plan: * multiple possible sources: * pneumonia (CAP versus aspiration) * sinusitis * proctitis * sacral debubitus ulcer and chronic osteomyelitis * follow culture results * was briefly on vasopressors but weaned off * on broad spectrum antibiotics (4) Acute respiratory failure: Code(s): J96.00 - Acute respiratory failure, unspecified whether with hypoxia or hypercapnia Status: Acute Assessment and Plan: * due to cardiac arrest * however, complicated by possible pneumonia and pulmonary edema/pleural effusions as well as pulmonary embolus as noted by admission imaging * cannot fully discount aspiration/aspiration pneumonia as well * on ventilator support at this time * weaning once more stable (5) Pulmonary embolism: Code(s): I26.99 - Other pulmonary embolism without acute cor pulmonale Status: Acute Assessment and Plan: * CTA demonstrated right lower lobe segmental and subsegmental pulmonary artery embolism * LE duplex also with extensive DVTs as well * on anticoagulation (6) Pneumonia: Code(s): J18.9 - Pneumonia, unspecified organism Status: Acute Assessment and Plan: * bilateral consolidation on CTA suspicion for pulmonary edema and pneumonia * aspiration milan concern since he was found unresponsive * on IV antibiotic therapy (7) CHF (congestive heart failure): Code(s): I50.9 - Heart failure, unspecified Status: Acute Assessment and Plan: * known history of CHF/cardiomyopathy * recent Echo noted * evidence of fluid overload currently * resume diuresis once better hemodynamics achieved (8) Hypoxic brain damage: Code(s): G93.1 - Anoxic brain damage, not elsewhere classified Status: Acute Assessment and Plan: * suspected based on events leading to admssion/hospitalization * Head CT results noted * Neurology following (9) Diabetes: Code(s): E11.9 - Type 2 diabetes mellitus without complications Status: Acute Assessment and Plan: * follow accuchecks * glycemic control > 20 minutes spent reviewing electronic medical records and the paper chart (EMS documentation and care home records) along with discussion with medical staff involved in patient's care. Will continue to follow. History of Present Illness Reason for Consult Consult date: 05/19/22 Reason for consult: acute renal failure Chief Com
--- NOTE | 2022-05-19 13:22 | PM.CNNEP ---
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/dialysis follow trend of repeat labs and UOP (2) Cardiac arrest: Code(s): I46.9 - Cardiac arrest, cause unspecified Status: Acute Assessment and Plan: as noted by admission history prolonged down time suspected etiology not clear with multiple possibilities: hypercarbia respiratory failure due to lack of CPAP/BiPAP use PE (although small without significant hemodynamic insult) cardiomyopathy cardiac event Cardiology following Echo results noted (3) Sepsis: Code(s): A41.9 - Sepsis, unspecified organism Status: Acute Assessment and Plan: multiple possible sources: pneumonia (CAP versus aspiration) sinusitis proctitis sacral debubitus ulcer and chronic osteomyelitis follow culture results was briefly on vasopressors but weaned off on broad spectrum antibiotics (4) Acute respiratory failure: Code(s): J96.00 - Acute respiratory failure, unspecified whether with hypoxia or hypercapnia Status: Acute Assessment and Plan: due to cardiac arrest however, complicated by possible pneumonia and pulmonary edema/pleural effusions as well as pulmonary embolus as noted by admission imaging cannot fully discount aspiration/aspiration pneumonia as well on ventilator support at this time weaning once more stable (5) Pulmonary embolism: Code(s): I26.99 - Other pulmonary embolism without acute cor pulmonale Status: Acute Assessment and Plan: CTA demonstrated right lower lobe segmental and subsegmental pulmonary artery embolism LE duplex also with extensive DVTs as well on anticoagulation (6) Pneumonia: Code(s): J18.9 - Pneumonia, unspecified organism Status: Acute Assessment and Plan: bilateral consolidation on CTA suspicion for pulmonary edema and pneumonia aspiration milan concern since he was found unresponsive on IV antibiotic therapy (7) CHF (congestive heart failure): Code(s): I50.9 - Heart failure, unspecified Status: Acute Assessment and Plan: known history of CHF/cardiomyopathy recent Echo noted evidence of fluid overload currently resume diuresis once better hemodynamics achieved (8) Hypoxic brain damage: Code(s): G93.1 - Anoxic brain damage, not elsewhere classified Status: Acute Assessment and Plan: suspected based on events leading to admssion/hospitalization Head CT results noted Neurology following (9) Diabetes: Code(s): E11.9 - Type 2 diabetes mellitus without complications Status: Acute Assessment and Plan: follow accuchecks glycemic control > 20 minutes spent reviewing electronic medical records and the paper chart (EMS documentation and long-term records) along with discussion with medical staff involved in patient's care. Will continue to follow. History of Present Illness Reason for Consult Consult date: 05/19/22 Reason for consult: acute renal failure Chief Complaint Chief complaint: Pulmonary Embolism/Cardiac Arrest/Congestive Heart History of Present Illness Narrative: All of the information I have obtained has been from review of the electronic medical record as well as the accompanying paper chart and discussion with the medical staff involved in the patient's care as the patient is unable to provide me with any history as he is currently intubated and on mechanical ventilation. The patient is a 56-year-old male with a past medical history as outlined b
[2022-05-19 16:02] LABS: Glucose Point of Care 87 mg/dl (65-105)
[2022-05-19] MEDS: PROPOFOL IV EMULSION 100 ML 9.6 MG IV CONT (19:25)
[2022-05-19 20:02] LABS: Glucose Point of Care 82 mg/dl (65-105)
[2022-05-19] MEDS: carvediloL 3.125 MG TABLET PO (20:40)
[2022-05-19 23:50] LABS: Glucose Point of Care 90 mg/dl (65-105)
[2022-05-20] VITALS (34 sets, daily range): BP systolic 112–175; BP diastolic 68–112; PULSE 61–91; RESP 14–18; TEMP 36.6–37.1; O2SAT 95–100
[2022-05-20 04:36] LABS: Glucose Point of Care 125 mg/dl (65-105)
[2022-05-20] MEDS: ALBUMIN HUMAN 25% 25 GM/100 ML 100 ML IVPB ×4 (05:40→23:34)
[2022-05-20] MEDS: CENTRAL LINE FLUSH 10 ML IV PUSH ×4 (05:40→21:04)
[2022-05-20 05:47] LABS: INR 2.4
[2022-05-20 05:48] LABS: Albumin Level 3.3 g/dL (3.5-5.1); Alkaline Phosphatase 107 U/L (38-126); Anion Gap 9 mmol/L (8-16); Bilirubin,Total 1.5 mg/dL (0.2-1.3); Blood Urea Nitrogen 50 mg/dL (9-20); Calcium 8.5 mg/dL (8.4-10.2); Carbon Dioxide 39 mmol/L (22-30); Chloride 96 mmol/L (98-107); Cholesterol 124 mg/dL (0-200); Estimated CRCL calculation 39 ml/min; Estimated Glomerular Filt Rate 25; Glucose 127 mg/dL (65-110); HDL Direct 26 mg/dL; Magnesium 1.9 mg/dL (1.6-2.3); Phosphorus 3.8 mg/dL (2.5-4.5); Sodium 144 mmol/L (137-145); Triglycerides 129 mg/dL (<150)
[2022-05-20 05:53] LABS: Hematocrit 29.9 % (42.0-52.0); Hemoglobin 8.6 g/dL (14.0-18.0); Mean Corpuscular HGB Conc 28.8 g/dl (32-36); Mean Corpuscular Hemoglobin 26.5 pg (26-34); Mean Corpuscular Volume 92.3 fl (80-100); Mean Platelet Volume 11.5 fl (7.4-10.4); Platelet Count Result 129 k/mm3 (150-375); Red Blood Count 3.24 M/mm3 (4.6-6.20); Red Cell Distribution Width 19.6 % (11.5-14.5); White Blood Count 4.3 K/mm3 (4.5-10.0)
[2022-05-20 05:55] LABS: LDL Cholesterol Direct 50 mg/dL
[2022-05-20 06:00] LABS: Alveolar/Arterial O2 Gradient 74.7 mmHg; Arterial Blood Gas PEEP 8 cmH2O; Arterial Blood Gas Vent Mode CMV; Arterial Blood Gas Ventilator rate 16 /MIN; Base Excess ABG 12.8 mEq/l (+/-2.0); Carboxyhemoglobin 0.3 % THb (0-2.0); Device VENTILATOR; Fractional Inspired Oxygen 30 %; HCO3 ABG 38.4 mEq/l (22.0-26.0); Methemoglobin ABG 0.1 %THb (0-1.5); Modified Allen's Test Unable to perform; Oxygen Content ABG 12.3 %vol (16.0-22.0); Oxygen Saturation ABG 94.9 % (95.0-100.0); Oxyhemoglobin 92.6 % THb (90.0-100.0); PCO2 ABG 56.4 mmHg (35.0-45.0); PO2 ABG 72.9 mmHg (80.0-100.0); PO2 FiO2 Ratio Arterial Blood 2.43 %; Site Drawn LEFT RADIAL; Total Hemoglobin 9.4 g/dL (12.0-18.0); pH ABG 7.451 (7.350-7.450)
[2022-05-20 06:01] LABS: Arterial Blood Gas Tidal Volume 400 ml
[2022-05-20 06:30] LABS: Alanine Aminotransferase 1826 U/L (6-50)
[2022-05-20 06:31] LABS: Eosinophils Absolute Manual 0.51 K/mm3 (0.02-0.5); Eosinophils Percent Manual 12 % (0-4); Hypochromasia 3+ (NORMAL); Lymphocytes Absolute Manual 0.51 K/mm3 (1.1-4.5); Monocytes Absolute Manual 0.51 K/mm3 (0.1-0.90); Monocytes Percent Manual 12 % (3-9); Neutrophils Percent Manual 64 % (46-73); Schistocytes None Seen (NORMAL); Total Cells Counted 100
[2022-05-20 06:52] LABS: Aspartate Amino Transferase 1532 U/L (17-59)
[2022-05-20 07:27] LABS: Glucose Point of Care 126 mg/dl (65-105)
--- NOTE | 2022-05-20 09:18 | WPDINTPN ---
Progress Note: A&P Assessment and Plan (1) Acute respiratory failure: Code(s): J96.00 - Acute respiratory failure, unspecified whether with hypoxia or hypercapnia Status: Acute Assessment and Plan: Acute Respiratory failure secondary to cardiac arrest, extensive bilateral consolidation could be combination of pulmonary edema and/or pneumonia. Pneumonia could be aspiration, moderate pleural effusions Patient also has PE and right lower lobe segmental and subsegmental arteries Patient is already anticoagulated Now intubated and mechanical ventilation Vent settings reviewed-currently on 30% FiO2 and [address] reviewed Continue full mechanical ventilation support to prevent hypoxemia/hypercarbia and end organ damage. Low tidal volume ventilation strategy to prevent volutrauma Bronchodilators Weaning will depend on his neurological improvement (2) Cardiac arrest: Code(s): I46.9 - Cardiac arrest, cause unspecified Status: Acute Assessment and Plan: Patient was found unresponsive and initial rhythm was asystole. Later patient went into VFib. He had a prolonged time time and received 4 doses of epinephrine and DC defibrillation Patient does have AICD which makes me wonder whether patient actually was in VFib Specific Etiology not clear as patient has multiple possible etiologies for his cardiac arrest Patient does have history of cardiomyopathy, AFib He CTA shows right lower lobe segmental and subsegmental PE. Patient already on anticoagulation. I considered thrombolytics considering patient's cardiac arrest but this PE appears to be small and not massive. He is on only few mics of Levophed and hemodynamically stable. He is already anticoagulated with supratherapeutic INR which is another relative contraindication. [facility]. Stat echocardiogram was performed in the ER and I reviewed prelim report with Dr. Cueto. His RV does not show signs of acute right failure. He does have pulmonary hypertension and has global hypokinesia with EF of 30-35% suggesting against PE to be the hemodynamic issue. At this point I believe the risks from potential bleeding from tPA are higher than the benefit he is going to receive from tPA He also has history of sleep apnea and history of hypercarbic respiratory failure and has not been using his CPAP or BiPAP for many days Serial troponins done and showed gradual increased Cardiology following and does not believe it to be a acute coronary event Echocardiogram Summary ? 1. Moderate left ventricular enlargement with moderate eccentric left ventricular hypertrophy.? Severe global hypokinesis with a calculated ejection fraction of 32% (visually 30-35 %).? Diastolic function is abnormal.? No segmental wall motion abnormalities. ? 2. Left atrial chamber dimension is moderately enlarged. ? 3. Right atrial chamber dimension is mildly enlarged. ? 4. There is mild tricuspid valve regurgitation. ? 5. Moderate pulmonary hypertension, estimated pulmonary arterial systo ic pressure is 62 mmHg. ? 6. Dilated inferior vena cava with >50% collapse upon inspiration consistent with elevated right atrial pressure, 15 mmHg. ? 7. Right ventricular size and systolic function is normal. ? 8. Somewhat technically difficult study; definity echo contrast used. ? 9. Indeterminate rhythm, may be atrial fibrillation. (3) Pulmonary embolism: Code(s): I26.99 - Other pulmonary embolism without acute cor pulmonale Status: Acute Assessment and Plan: CTA shows right lower lobe segmental and sub segmental pulmonary artery embolism Patient does have a history of DVT is on anticoagulation Lower extremity Doppler showed Extensive deep venous thrombosis throughout the left lower limb, both above and [id number]. Currently INR is therapeutic. Resume warfarin since patient is allergic to heparin and is in acute renal failure making transitioning anticoagulation to a diffe
[2022-05-20] MEDS: AMIODARONE HCL 200 MG TABLET PO (09:27)
[2022-05-20] MEDS: carvediloL 3.125 MG TABLET PO ×2 (09:28→20:59)
[2022-05-20] MEDS: METOCLOPRAMIDE HCL 10 MG/10 ML SOLN UDC FEED TUBE ×3 (09:28→20:59)
[2022-05-20] MEDS: DIGOXIN TAB 125 MCG TABLET PO (09:28)
[2022-05-20] MEDS: levETIRAcetam 1000MG/NACL100ML 1,000 MG/100 ML BAG 400 MG IVPB ×2 (09:28→21:04)
[2022-05-20] MEDS: PANTOPRAZOLE SODIUM IV 40 MG VIAL IV PUSH (09:29)
[2022-05-20] MEDS: MINERAL OIL/WHITE PETROLATUM OINTMENT 1 APPLIC EACH EYE ×2 (09:29→21:04)
[2022-05-20] MEDS: SILVERGEL (ELTA) 45 ML 1 APPLIC TOPICAL (09:29)
[2022-05-20] MEDS: polyethylene glycoL 3350 17 GM POWD.PACK PO (09:29)
--- NOTE | 2022-05-20 09:46 | PM.PNCARD ---
Progress Note: A&P Assessment and Plan (1) Cardiac arrest: Code(s): I46.9 - Cardiac arrest, cause unspecified Status: Acute Assessment and Plan: Status post PEA cardiac arrest, unclear how long the patient was down prior to resuscitation. Multiple possible etiologies. Evaluating ICD to see if this was a primary arrhythmic arrest, though was in PEA on EMS arrival. Has pneumonia and chronic respiratory failure. Has extensive left lower extremity DVT and a small PE. Poor cardiac function contributing; cardiogenic shock is also possibility. Has elevated troponin but patient does not appear to have had a STEMI. May be septic; has a UTI and chronic sacral osteo. Also he has apparently not been using his CPAP so this may have started out as hypercarbic respiratory failure which devolved into a PEA arrest. Patient remains unresponsive and appears to have encephalopathy and sister aware , now DNR (2) Shock: Code(s): R57.9 - Shock, unspecified Status: Acute Assessment and Plan: Patient was in shock on IV fluids and Levophed on admission. Levophed discontinued, blood pressure stable. (3) Pulmonary embolism: Code(s): I26.99 - Other pulmonary embolism without acute cor pulmonale Status: Acute Assessment and Plan: Extensive left lower extremity DVT with small PE Agree with Restart a lower dose warfarin today at 5 mg daily (4) Acute on chronic combined systolic and diastolic CHF (congestive heart failure): Code(s): I50.43 - Acute on chronic combined systolic (congestive) and diastolic (congestive) heart failure Status: Acute Assessment and Plan: Acute on chronic CHF with edema and pleural effusions. Will start furosemide 20 mg IV daily (5) ICD (implantable cardioverter-defibrillator) in place: Code(s): Z95.810 - Presence of automatic (implantable) cardiac defibrillator Status: Acute Assessment and Plan: Her AICD interrogated. Changes made. Please see the interrogation report in paper chart (6) Nonischemic cardiomyopathy: Code(s): I42.8 - Other cardiomyopathies Status: Acute Assessment and Plan: Long h/o nonischemic cardiomyopathy and CHF. EF 30-35% Resume usual CHF meds -- start w/ low dose carvedilol. Hold off on Entresto due to FERNANDA. (7) Afib: Code(s): I48.91 - Unspecified atrial fibrillation Status: Acute Assessment and Plan: Persistent atrial fibrillation, rate controlled, on anticoagulation with warfarin. Heart rate controlled with digoxin, carvedilol and amiodarone INR supratherapeuticwarfarin on hold Digoxin level OK, 0.6. on admission. Since pt in ARF, will hold digoxin. (8) Acute kidney injury: Code(s): N17.9 - Acute kidney failure, unspecified Status: Acute Assessment and Plan: Not making much urine, creat rising. (9) Osteomyelitis: Code(s): M86.9 - Osteomyelitis, unspecified Status: Acute Assessment and Plan: Chronic osteo of sacrum Subjective Date/time seen: 05/20/22 09:46 Interval history: FU for PEA arrest, shock.? Small PE, pneumonia, acute on chronic CHF, encephalopathy. H/O nonischemic cardiomyopathy and [employer] ICD, followed by Dr. Melgoza.? Also? has persistent atrial fibrillation, history of cardioembolic [place] 07/2015, history of DVT PE on anticoagulation, questionable history of hit, CKD, morbid obesity, sleep apnea intermittently on CPAP.? Sick for the last 3 years, in and out the hospital several times in 2021, [place] resident. 05/19/22? 12:26 ? Patient remains on the ventilator.? Levophed was weaned off last night.? No significant arrhythmias on telemetry.? No purposeful movement per RN.? Not much urine output.? Now a DNR. [employer] [facility] download showed some possible arrhythmias; rep will be here soon to do a more formal evaluation. Follow-up note/date of service 05/20/2022: Overall no si
[2022-05-20] MEDS: PROPOFOL IV EMULSION 100 ML 4.8 MG IV CONT (11:55)
--- NOTE | 2022-05-20 12:13 | PM.PNNEP ---
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/dialysis follow trend of repeat labs and UOP (2) Cardiac arrest: Code(s): I46.9 - Cardiac arrest, cause unspecified Status: Acute Assessment and Plan: as noted by admission history prolonged down time suspected etiology not clear with multiple possibilities: hypercarbia respiratory failure due to lack of CPAP/BiPAP use PE (although small without significant hemodynamic insult) cardiomyopathy cardiac event Cardiology following Echo results noted (3) Sepsis: Code(s): A41.9 - Sepsis, unspecified organism Status: Acute Assessment and Plan: multiple possible sources: pneumonia (CAP versus aspiration) sinusitis proctitis sacral debubitus ulcer and chronic osteomyelitis follow culture results was briefly on vasopressors but weaned off on broad spectrum antibiotics (4) Acute respiratory failure: Code(s): J96.00 - Acute respiratory failure, unspecified whether with hypoxia or hypercapnia Status: Acute Assessment and Plan: due to cardiac arrest however, complicated by possible pneumonia and pulmonary edema/pleural effusions as well as pulmonary embolus as noted by admission imaging cannot fully discount aspiration/aspiration pneumonia as well on ventilator support at this time weaning once more stable (and depending on neurological status) (5) Pulmonary embolism: Code(s): I26.99 - Other pulmonary embolism without acute cor pulmonale Status: Acute Assessment and Plan: CTA demonstrated right lower lobe segmental and subsegmental pulmonary artery embolism LE duplex also with extensive DVTs as well on anticoagulation (6) Pneumonia: Code(s): J18.9 - Pneumonia, unspecified organism Status: Acute Assessment and Plan: bilateral consolidation on CTA suspicion for pulmonary edema and pneumonia aspiration milan concern since he was found unresponsive on IV antibiotic therapy (7) CHF (congestive heart failure): Code(s): I50.9 - Heart failure, unspecified Status: Acute Assessment and Plan: known history of CHF/cardiomyopathy recent Echo noted evidence of fluid overload currently resume diuresis once better hemodynamics achieved to assess response (8) Hypoxic brain damage: Code(s): G93.1 - Anoxic brain damage, not elsewhere classified Status: Acute Assessment and Plan: suspected based on events leading to admssion/hospitalization Head CT results noted Neurology following (9) Diabetes: Code(s): E11.9 - Type 2 diabetes mellitus without complications Status: Acute Assessment and Plan: follow accuchecks glycemic control Will continue to follow. Subjective Date/time seen: 05/20/22 12:13 No real significant change; remain intubated and on mechanical ventilation and off sedation; urine output remains poor in the last 24 hours; remains hemodynamically stable without the need for vasopressor therapy; Dr. Acosta's discussion with noted with subsequent change in code status; no other issues/events overnight or earlier this AM. Exam Narrative: General: middle aged AA male intubated and on mechanical ventilation Heart: IRRR, normal S1 and S2; no rub Lungs: coarse and decreased at bases Abdomen: soft, nontender, mild distension; decreased bowel sounds Extremities: no cyanosis or clubbing; 2+ edema Skin: warm and dry Objective Data Vital Signs Vital Signs: Vital Signs
--- NOTE | 2022-05-20 12:13 | P.PNNP_ITS ---
Progress Note: A&P Assessment and Plan (1) Acute kidney injury: Code(s): N17.9 - Acute kidney failure, unspecified Status: Acute Assessment and Plan: * most likely secondary to cardiac arrest and shock * has likely progressed to ATN * noted drop in urine output in the last 24 hours * no critical electrolytes but volume status already an issue * evaluation to date: * renal ultrasound okay * CPK normal * remains at risk for SUG[employer]E GR[employer]/dialysis * follow trend of repeat labs and UOP (2) Cardiac arrest: Code(s): I46.9 - Cardiac arrest, cause unspecified Status: Acute Assessment and Plan: * as noted by admission history * prolonged down time suspected * etiology not clear with multiple possibilities: * hypercarbia respiratory failure due to lack of CPAP/BiPAP use * PE (although small without significant hemodynamic insult) * cardiomyopathy * cardiac event * Cardiology following * Echo results noted (3) Sepsis: Code(s): A41.9 - Sepsis, unspecified organism Status: Acute Assessment and Plan: * multiple possible sources: * pneumonia (CAP versus aspiration) * sinusitis * proctitis * sacral debubitus ulcer and chronic osteomyelitis * follow culture results * was briefly on vasopressors but weaned off * on broad spectrum antibiotics (4) Acute respiratory failure: Code(s): J96.00 - Acute respiratory failure, unspecified whether with hypoxia or hypercapnia Status: Acute Assessment and Plan: * due to cardiac arrest * however, complicated by possible pneumonia and pulmonary edema/pleural effusions as well as pulmonary embolus as noted by admission imaging * cannot fully discount aspiration/aspiration pneumonia as well * on ventilator support at this time * weaning once more stable (and depending on neurological status) (5) Pulmonary embolism: Code(s): I26.99 - Other pulmonary embolism without acute cor pulmonale Status: Acute Assessment and Plan: * CTA demonstrated right lower lobe segmental and subsegmental pulmonary artery embolism * LE duplex also with extensive DVTs as well * on anticoagulation (6) Pneumonia: Code(s): J18.9 - Pneumonia, unspecified organism Status: Acute Assessment and Plan: * bilateral consolidation on CTA suspicion for pulmonary edema and pneumonia * aspiration milan concern since he was found unresponsive * on IV antibiotic therapy (7) CHF (congestive heart failure): Code(s): I50.9 - Heart failure, unspecified Status: Acute Assessment and Plan: * known history of CHF/cardiomyopathy * recent Echo noted * evidence of fluid overload currently * resume diuresis once better hemodynamics achieved to assess response (8) Hypoxic brain damage: Code(s): G93.1 - Anoxic brain damage, not elsewhere classified Status: Acute Assessment and Plan: * suspected based on events leading to admssion/hospitalization * Head CT results noted * Neurology following (9) Diabetes: Code(s): E11.9 - Type 2 diabetes mellitus without complications Status: Acute Assessment and Plan: * follow accuchecks * glycemic control Will continue to follow. Subjective Date/time seen: 05/20/22 12:13 No real significant change; remain intubated and on mechanical ventilation and off sedation; urine output remains poor in the last 24 hours; remains hemodynamically stable without the need for
[2022-05-20 12:32] LABS: Glucose Point of Care 125 mg/dl (65-105)
--- NOTE | 2022-05-20 13:16 | PM.IMPN ---
Progress Note: A&P Assessment and Plan (1) Cardiac arrest: Code(s): I46.9 - Cardiac arrest, cause unspecified Status: Acute Assessment and Plan: At 07:15 the patient was found unresponsive, not breathing, and without a pulse; he was reportedly last seen normal at 06:00. He was defibrillated for VFib in the field and received 4 rounds of epinephrine with eventual return of spontaneous circulation. Etiology of the cardiac arrest is not entirely clear at this juncture. He has a known nonischemic cardiomyopathy, possible dysrhythmia though he does have an ICD and device is being interrogated. CTA of the chest showed segmental and subsegmental pulmonary emboli which appear small and are not likely the main reason for the arrest. He has chronic hypercarbic respiratory failure and he apparently has not been using his CPAP so it may have been a primary respiratory arrest. Troponins have elevated but not significantly so and EKG does not appear to be consistent with STEMI. Echocardiogram is being done at the time of my evaluation and is pending. Cardiology has been consulted and their input is greatly appreciated. 05/20/2022 interval history: s/p PEA cardiac arrest and not sure along patient was down before he was resuscitated, patient remains intubated, prognosis is poor, intesnsivist spoke with patient and patient is now DNR and if there is no improvement, family may withdraw care. 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 (2) Acute and chronic respiratory failure: Code(s): J96.20 - Acute and chronic respiratory failure, unspecified whether with hypoxia or hypercapnia Status: Acute Assessment and Plan: Secondary to cardiac arrest though possibly he had a primary respiratory arrest leading to cardiac arrest, unclear at this time. It is my understanding of the patient has not been wearing his CPAP recently. Imaging today shows moderate pleural effusions as well as findings suggestive of pneumonia. He is currently intubated on mechanical ventilation which is being managed per Dr. Acosta. (3) Shock: Code(s): R57.9 - Shock, unspecified Status: Acute Assessment and Plan: May be septic or cardiogenic shock, or a combination of both. Currently requiring low-dose Levophed. Echo pending. (4) Sepsis: Code(s): A41.9 - Sepsis, unspecified organism Status: Acute Assessment and Plan: Patient presents with a sepsis picture with possible source to include pneumonia, sinusitis, proctitis, or osteomyelitis of a sacral decubitus ulcer. Continue empiric vancomycin and imipenem pending blood cultures. (5) Pulmonary embolism: Code(s): I26.99 - Other pulmonary embolism without acute cor pulmonale Status: Acute Assessment and Plan: He is already anticoagulated with a supratherapeutic INR and as such the decision has been made to not initiate tPA as the risks of bleeding seem to outweigh the benefits at this time. Lower extremity venous Doppler ultrasounds ordered to evaluate for possible DVT. (6) Acute on chronic combined systolic and diastolic CHF (congestive heart failure): Code(s): I50.43 - Acute on chronic combined systolic (congestive) and diastolic (congestive) heart failure Status: Acute Assessment and Plan: Unable to be diuresed at this time. (7) Nonischemic cardiomyopathy: Code(s): I42.8 - Other cardiomyopathies Status: Acute Assessment and Plan: Interrogate AICD. Resume CHF medications once stable. (8) Persistent atrial fibrillation: Code(s): I48.19 - Other persistent atrial fibrillation Status: Acute Assessment and Plan: Rate controlled. Continue digoxin and amiodarone. (9) Chronic anticoagulation: Code(s): Z79.01 - senior living (current) use of anticoagulants Status: Acute Assessment and Plan: Anticoagulated with a supratherapeutic INR. (10
[2022-05-20 16:53] LABS: Glucose Point of Care 120 mg/dl (65-105)
[2022-05-20] MEDS: WARFARIN (*PBKC) 5 MG TABLET PO (17:10)
[2022-05-21] VITALS (61 sets, daily range): BP systolic 122–155; BP diastolic 78–96; PULSE 57–114; RESP 7–19; TEMP 36.6–37.3; O2SAT 91–100
[2022-05-21] MEDS: METOCLOPRAMIDE HCL 10 MG/10 ML SOLN UDC FEED TUBE ×4 (03:30→21:00)
[2022-05-21 04:36] LABS: Glucose Point of Care 174 mg/dl (65-105)
[2022-05-21 05:14] LABS: Basophils Percent Auto 0.8 % (0.2-1.2); Eosinophils Absolute Auto 0.3 K/mm3 (0-0.3); Eosinophils Percent Auto 8.1 % (0-4.4); Hematocrit 27.7 % (42.0-52.0); Hemoglobin 7.9 g/dL (14.0-18.0); Immature Granulocyte Absolute 0.02 K/mm3 (0.00-0.031); Immature Granulocyte Percent A 0.5 % (0-0.5); Immature Platelet Fraction Pct 8.6 % (0.9-11.2); Lymphocytes Absolute Auto 0.54 K/mm3 (0.9-3.2); Lymphocytes Percent Auto 14.6 % (18.3-44.2); Mean Corpuscular HGB Conc 28.5 g/dl (32-36); Mean Corpuscular Hemoglobin 25.9 pg (26-34); Mean Corpuscular Volume 90.8 fl (80-100); Mean Platelet Volume 12.4 fl (7.4-10.4); Monocytes Absolute Auto 0.7 K/mm3 (0.1-0.6); Monocytes Percent Auto 18.6 % (2.6-8.5); Neutrophils Absolute Auto 2.1 K/mm3 (1.3-6.7); Neutrophils Percent Auto 57.4 % (45.5-73.1); Platelet Count Result 100 k/mm3 (150-375); Red Blood Count 3.05 M/mm3 (4.6-6.20); Red Cell Distribution Width 19.5 % (11.5-14.5); White Blood Count 3.7 K/mm3 (4.5-10.0)
[2022-05-21 05:16] LABS: INR 1.7; Prothrombin Time 19.2 Seconds (11.1-14.7)
[2022-05-21 05:18] LABS: Albumin Level 3.4 g/dL (3.5-5.1); Alkaline Phosphatase 121 U/L (38-126); Anion Gap 10 mmol/L (8-16); Aspartate Amino Transferase 561 U/L (17-59); Bilirubin,Total 1.1 mg/dL (0.2-1.3); Blood Urea Nitrogen 58 mg/dL (9-20); Calcium 8.6 mg/dL (8.4-10.2); Carbon Dioxide 37 mmol/L (22-30); Chloride 96 mmol/L (98-107); Estimated CRCL calculation 30 ml/min; Estimated Glomerular Filt Rate 19; Glucose 138 mg/dL (65-110); Phosphorus 4.2 mg/dL (2.5-4.5); Potassium 3.8 mmol/L (3.4-5.0); Sodium 143 mmol/L (137-145)
[2022-05-21] MEDS: PROPOFOL IV EMULSION 100 ML 4.8 MG IV CONT (05:38)
[2022-05-21] MEDS: ALBUMIN HUMAN 25% 25 GM/100 ML 100 ML IVPB ×4 (05:54→23:47)
[2022-05-21] MEDS: CENTRAL LINE FLUSH 10 ML IV PUSH ×4 (05:54→21:02)
[2022-05-21 05:56] LABS: Base Excess ABG 12.6 mEq/l (+/-2.0); Carboxyhemoglobin 0.3 % THb (0-2.0); Fractional Inspired Oxygen 30 %; HCO3 ABG 38.6 mEq/l (22.0-26.0); Methemoglobin ABG 0.2 %THb (0-1.5); Oxygen Content ABG 12.3 %vol (16.0-22.0); Oxygen Saturation ABG 94.5 % (95.0-100.0); Oxyhemoglobin 92.6 % THb (90.0-100.0); PCO2 ABG 59.2 mmHg (35.0-45.0); PO2 ABG 72.3 mmHg (80.0-100.0); PO2 FiO2 Ratio Arterial Blood 2.41 %; Reduced Hemoglobin 6.9 %THb (0-5.0); Total Hemoglobin 9.4 g/dL (12.0-18.0); pH ABG 7.432 (7.350-7.450)
[2022-05-21 06:10] LABS: Modified Allen's Test Pass; Site Drawn RIGHT RADIAL
[2022-05-21 06:11] LABS: Device VENTILATOR
[2022-05-21 06:12] LABS: Arterial Blood Gas PEEP 8 cmH2O; Arterial Blood Gas Tidal Volume 380 ml; Arterial Blood Gas Vent Mode CMV; Arterial Blood Gas Ventilator rate 14 /MIN
[2022-05-21] MEDS: levETIRAcetam 1000MG/NACL100ML 1,000 MG/100 ML BAG 400 MG IVPB ×2 (09:38→20:59)
[2022-05-21] MEDS: DIGOXIN TAB 125 MCG TABLET PO (09:39)
[2022-05-21] MEDS: polyethylene glycoL 3350 17 GM POWD.PACK PO (09:40)
[2022-05-21] MEDS: FUROSEMIDE INJ 40 MG/4 ML VIAL 20 MG IV PUSH (09:40)
[2022-05-21] MEDS: AMIODARONE HCL 200 MG TABLET PO (09:40)
[2022-05-21] MEDS: PANTOPRAZOLE SODIUM IV 40 MG VIAL IV PUSH (09:40)
[2022-05-21] MEDS: SILVERGEL (ELTA) 45 ML 1 APPLIC TOPICAL (09:41)
[2022-05-21] MEDS: MINERAL OIL/WHITE PETROLATUM OINTMENT 1 APPLIC EACH EYE ×2 (09:41→21:02)
[2022-05-21] MEDS: carvediloL 3.125 MG TABLET PO ×2 (09:41→21:00)
--- NOTE | 2022-05-21 09:45 | WPDINTPN ---
Progress Note: A&P Assessment and Plan (1) Acute respiratory failure: Code(s): J96.00 - Acute respiratory failure, unspecified whether with hypoxia or hypercapnia Status: Acute Assessment and Plan: Acute Respiratory failure secondary to cardiac arrest, extensive bilateral consolidation could be combination of pulmonary edema and/or pneumonia. Pneumonia could be aspiration, moderate pleural effusions Patient also has PE and right lower lobe segmental and subsegmental arteries Patient is already anticoagulated Now intubated and mechanical ventilation Vent settings reviewed-currently on 30% FiO2 and [address] reviewed Continue full mechanical ventilation support to prevent hypoxemia/hypercarbia and end organ damage. Low tidal volume ventilation strategy to prevent volutrauma Bronchodilators Weaning will depend on his neurological improvement (2) Cardiac arrest: Code(s): I46.9 - Cardiac arrest, cause unspecified Status: Acute Assessment and Plan: Patient was found unresponsive and initial rhythm was asystole. Later patient went into VFib. He had a prolonged time time and received 4 doses of epinephrine and DC defibrillation Patient does have AICD which makes me wonder whether patient actually was in VFib Specific Etiology not clear as patient has multiple possible etiologies for his cardiac arrest Patient does have history of cardiomyopathy, AFib He CTA shows right lower lobe segmental and subsegmental PE. Patient already on anticoagulation. I considered thrombolytics considering patient's cardiac arrest but this PE appears to be small and not massive. He is on only few mics of Levophed and hemodynamically stable. He is already anticoagulated with supratherapeutic INR which is another relative contraindication. He has had falls [facility] as per family. Stat echocardiogram was performed in the ER and I reviewed prelim report with Dr. Cueto. His RV does not show signs of acute right failure. He does have pulmonary hypertension and has global hypokinesia with EF of 30-35% suggesting against PE to be the hemodynamic issue. At this point I believe the risks from potential bleeding from tPA are higher than the benefit he is going to receive from tPA He also has history of sleep apnea and history of hypercarbic respiratory failure and has not been using his CPAP or BiPAP for many days Serial troponins done and showed gradual increased Cardiology following and does not believe it to be a acute coronary event Echocardiogram Summary ? 1. Moderate left ventricular enlargement with moderate eccentric left ventricular hypertrophy.? Severe global hypokinesis with a calculated ejection fraction of 32% (visually 30-35 %).? Diastolic function is abnormal.? No segmental wall motion abnormalities. ? 2. Left atrial chamber dimension is moderately enlarged. ? 3. Right atrial chamber dimension is mildly enlarged. ? 4. There is mild tricuspid valve regurgitation. ? 5. Moderate pulmonary hypertension, estimated pulmonary arterial systo ic pressure is 62 mmHg. ? 6. Dilated inferior vena cava with >50% collapse upon inspiration consistent with elevated right atrial pressure, 15 mmHg. ? 7. Right ventricular size and systolic function is normal. ? 8. Somewhat technically difficult study; definity echo contrast used. ? 9. Indeterminate rhythm, may be atrial fibrillation. (3) Pulmonary embolism: Code(s): I26.99 - Other pulmonary embolism without acute cor pulmonale Status: Acute Assessment and Plan: CTA shows right lower lobe segmental and sub segmental pulmonary artery embolism Patient does have a history of DVT is on anticoagulation Lower extremity Doppler showed Extensive deep venous thrombosis throughout the left lower limb, both above and [id number]. Currently INR is sub therapeutic. I will recheck later today. If further lower will start IV anticoagulation Resume warfarin since patient is allergic to hepa
--- NOTE | 2022-05-21 10:07 | P.PNNP_ITS ---
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 * follow trend of repeat labs and UOP (2) Cardiac arrest: Code(s): I46.9 - Cardiac arrest, cause unspecified Status: Acute Assessment and Plan: * as noted by admission history * prolonged down time suspected * etiology not clear with multiple possibilities: * hypercarbia respiratory failure due to lack of CPAP/BiPAP use * PE (although small without significant hemodynamic insult) * cardiomyopathy * cardiac event * Cardiology following * Echo results noted (3) Sepsis: Code(s): A41.9 - Sepsis, unspecified organism Status: Acute Assessment and Plan: * multiple possible sources: * pneumonia (CAP versus aspiration) * sinusitis * proctitis * sacral debubitus ulcer and chronic osteomyelitis * follow culture results * was briefly on vasopressors but weaned off * on broad spectrum antibiotics (4) Acute respiratory failure: Code(s): J96.00 - Acute respiratory failure, unspecified whether with hypoxia or hypercapnia Status: Acute Assessment and Plan: * due to cardiac arrest * however, complicated by possible pneumonia and pulmonary edema/pleural effusions as well as pulmonary embolus as noted by admission imaging * cannot fully discount aspiration/aspiration pneumonia as well * on ventilator support at this time * weaning once more stable (and depending on neurological status) (5) Pulmonary embolism: Code(s): I26.99 - Other pulmonary embolism without acute cor pulmonale Status: Acute Assessment and Plan: * CTA demonstrated right lower lobe segmental and subsegmental pulmonary artery embolism * LE duplex also with extensive DVTs as well * on anticoagulation (6) Pneumonia: Code(s): J18.9 - Pneumonia, unspecified organism Status: Acute Assessment and Plan: * bilateral consolidation on CTA suspicion for pulmonary edema and pneumonia * aspiration milan concern since he was found unresponsive * on IV antibiotic therapy (7) CHF (congestive heart failure): Code(s): I50.9 - Heart failure, unspecified Status: Acute Assessment and Plan: * known history of CHF/cardiomyopathy * recent Echo noted * evidence of fluid overload currently * consider trial of diuretics? (8) Hypoxic brain damage: Code(s): G93.1 - Anoxic brain damage, not elsewhere classified Status: Acute Assessment and Plan: * suspected based on events leading to admssion/hospitalization * Head CT results noted * Neurology following (9) Diabetes: Code(s): E11.9 - Type 2 diabetes mellitus without complications Status: Acute Assessment and Plan: * follow accuchecks * glycemic control Noted ongoing discussion with family by Dr. Acosta regarding level/goals of care given patient's multitude of medical problems including suspected anoxic brain injury. Will continue to follow. Subjective Date/time seen: 05/21/22 10:07 No signific
--- NOTE | 2022-05-21 10:07 | PM.PNNEP ---
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 follow trend of repeat labs and UOP (2) Cardiac arrest: Code(s): I46.9 - Cardiac arrest, cause unspecified Status: Acute Assessment and Plan: as noted by admission history prolonged down time suspected etiology not clear with multiple possibilities: hypercarbia respiratory failure due to lack of CPAP/BiPAP use PE (although small without significant hemodynamic insult) cardiomyopathy cardiac event Cardiology following Echo results noted (3) Sepsis: Code(s): A41.9 - Sepsis, unspecified organism Status: Acute Assessment and Plan: multiple possible sources: pneumonia (CAP versus aspiration) sinusitis proctitis sacral debubitus ulcer and chronic osteomyelitis follow culture results was briefly on vasopressors but weaned off on broad spectrum antibiotics (4) Acute respiratory failure: Code(s): J96.00 - Acute respiratory failure, unspecified whether with hypoxia or hypercapnia Status: Acute Assessment and Plan: due to cardiac arrest however, complicated by possible pneumonia and pulmonary edema/pleural effusions as well as pulmonary embolus as noted by admission imaging cannot fully discount aspiration/aspiration pneumonia as well on ventilator support at this time weaning once more stable (and depending on neurological status) (5) Pulmonary embolism: Code(s): I26.99 - Other pulmonary embolism without acute cor pulmonale Status: Acute Assessment and Plan: CTA demonstrated right lower lobe segmental and subsegmental pulmonary artery embolism LE duplex also with extensive DVTs as well on anticoagulation (6) Pneumonia: Code(s): J18.9 - Pneumonia, unspecified organism Status: Acute Assessment and Plan: bilateral consolidation on CTA suspicion for pulmonary edema and pneumonia aspiration milan concern since he was found unresponsive on IV antibiotic therapy (7) CHF (congestive heart failure): Code(s): I50.9 - Heart failure, unspecified Status: Acute Assessment and Plan: known history of CHF/cardiomyopathy recent Echo noted evidence of fluid overload currently consider trial of diuretics? (8) Hypoxic brain damage: Code(s): G93.1 - Anoxic brain damage, not elsewhere classified Status: Acute Assessment and Plan: suspected based on events leading to admssion/hospitalization Head CT results noted Neurology following (9) Diabetes: Code(s): E11.9 - Type 2 diabetes mellitus without complications Status: Acute Assessment and Plan: follow accuchecks glycemic control Noted ongoing discussion with family by Dr. Acosta regarding level/goals of care given patient's multitude of medical problems including suspected anoxic brain injury. Will continue to follow. Subjective Date/time seen: 05/21/22 10:07 No significant change noted at this time; remains intubated and on mechanical ventilation; remains hemodynamically stable without the need for vasopressors; off sedation at this time with no improvement in neurological function; no other issues/events overnight or this morning. Exam Narrative: General: middle aged AA male intubated and on mechanical ventilation Heart: IRRR, normal S1 and S2; no rub Lungs: coarse and decreased at bases Abdomen: soft, nontender, mild distension; decreased bowel sounds Extremities: no cyanosis or clubbi
[2022-05-21 10:12] LABS: Glucose Point of Care 92 mg/dl (65-105)
[2022-05-21 10:46] LABS: Alanine Aminotransferase 1043 U/L (6-50)
--- NOTE | 2022-05-21 10:56 | PM.PNCARD ---
Progress Note: A&P Assessment and Plan (1) Cardiac arrest: Code(s): I46.9 - Cardiac arrest, cause unspecified Status: Acute Assessment and Plan: Status post PEA cardiac arrest, unclear how long the patient was down prior to resuscitation. Multiple possible etiologies. PEA on EMS arrival. Has pneumonia and chronic respiratory failure. Has extensive left lower extremity DVT and a small PE. Poor cardiac function contributing; cardiogenic shock is also possibility. Has elevated troponin but patient does not appear to have had a STEMI. May be septic; has a UTI and chronic sacral osteo. Also he has apparently not been using his CPAP so this may have started out as hypercarbic respiratory failure which devolved into a PEA arrest. Patient remains unresponsive and appears to have encephalopathy and sister aware , now DNR (2) Shock: Code(s): R57.9 - Shock, unspecified Status: Acute Assessment and Plan: Patient was in shock on IV fluids and Levophed on admission. Levophed discontinued, blood pressure stable. (3) Pulmonary embolism: Code(s): I26.99 - Other pulmonary embolism without acute cor pulmonale Status: Acute Assessment and Plan: Extensive left lower extremity DVT with small PE Continue with Warfarin, monitor INR (4) Acute on chronic combined systolic and diastolic CHF (congestive heart failure): Code(s): I50.43 - Acute on chronic combined systolic (congestive) and diastolic (congestive) heart failure Status: Acute Assessment and Plan: Acute on chronic CHF with edema and pleural effusions. Continue with IV diuresis (5) ICD (implantable cardioverter-defibrillator) in place: Code(s): Z95.810 - Presence of automatic (implantable) cardiac defibrillator Status: Acute Assessment and Plan: AICD interrogated. Changes made. Please see the interrogation report in paper chart ICD device interrogation did not show any arrhythmias preceding EMS arrival.? During resuscitation he had some intermittent V. Fib, but the device did not discharge due to the short duration of v. fib episodes and perhaps some undersensing.? Reprogrammed to discharge with shorter duration of V. Fib and a HR cut-off of 188 instead of 220 BPM.. If Ms. Wilson decides to withdrawal care, we should disable the defibrillatory function. (6) Nonischemic cardiomyopathy: Code(s): I42.8 - Other cardiomyopathies Status: Acute Assessment and Plan: Long h/o nonischemic cardiomyopathy and CHF. EF 30-35% Resume usual CHF meds -- start w/ low dose carvedilol. Hold off on Entresto due to FERNANDA. (7) Afib: Code(s): I48.91 - Unspecified atrial fibrillation Status: Acute Assessment and Plan: Persistent atrial fibrillation, rate controlled, on anticoagulation with warfarin. Heart rate controlled with digoxin, carvedilol and amiodarone Digoxin level OK, 0.6. on admission. Since pt in ARF, will hold digoxin. (8) Acute kidney injury: Code(s): N17.9 - Acute kidney failure, unspecified Status: Acute Assessment and Plan: Not making much urine, creat rising. (9) Osteomyelitis: Code(s): M86.9 - Osteomyelitis, unspecified Status: Acute Assessment and Plan: Chronic osteo of sacrum Subjective Date/time seen: 05/21/22 10:56 Interval history: Reason for visit: PEA arrest FU for PEA arrest, shock.? Small PE, pneumonia, acute on chronic CHF, encephalopathy. H/O nonischemic cardiomyopathy and [employer] ICD, followed by Dr. Melgoza.? Also? has persistent atrial fibrillation, history of cardioembolic [place] 07/2015, history of DVT PE on anticoagulation, questionable history of hit, CKD, morbid obesity, sleep apnea intermittently on CPAP.? Sick for the last 3 years, in and out the hospital several times in 2021, [place]. 05/19/22? 12:26 ? Patient remains on the ventilator.? Levophed
--- NOTE | 2022-05-21 11:04 | PCNFU ---
Nutrition Follow-Up Complete: Inadequate Oral Intake as related to mechanical ventilation as evidenced by NPO. Goal: Meet estimated nutritional needs - Goal not being met Pt current nutrition is Nepro at 50 ml/h goal rate. Propofol is discontinued. Augie flushes BID. Prosource modular BID. Nutrition recommendation: Increase goal rate Nepro @ 55 ml/g for total 2340 kcals , 138 g protein, 1059 ml free water including prosource modulars. Water flushes 30 ml q 4 hours. Augie flushes BID. Prosource modular BID. Last recorded weight is 156.4 kg. Bowel Motility: None charted Labs Reviewed:Hgb 7.9, Hct 27.7, Alb 3.4, BUN 58, Cre 4.0 Meds Noted: Warfarin, reglan, Keppra, albumin Skin: St 4 L heel; St 3 sacrum Additional Notes: Spoke to RN re: increasing goal rate to Nepro 55 ml/h, Order Prosource modular BId and Augie BID. Will monitor in ICU rounds and reassessing every Tuesday and Tuesday.
--- NOTE | 2022-05-21 12:12 | WPDNEUROLOGY ---
Neurology EEG Report General Information Date of Study: 05/21/22 TEST Routine EEG DIAGNOSIS Anoxic brain injury CONDITION OF RECORDING Unresponsive, frequent hiccup type movements EEG NUMBER [id number] CLINICAL HISTORY This is a repeat EEG on patient s/p cardiac arrest. Patient is still intubated and on vent in the ICU. EEG DESCRIPTION No posterior dominant rhythm or anterior-posterior gradient. Very suppressed background, with frequent movement artifact noted. No sleep architrecture noted. IMPRESSION This is an abnormal routine EEG due to the presence of severely suppressed background. This finding is suggest of severe encephalopathy (worse in comparison to routine EEG done on 05/19). Clinical correlation is recommended.
--- NOTE | 2022-05-21 14:46 | PM.IMPN ---
Progress Note: A&P Assessment and Plan (1) Cardiac arrest: Code(s): I46.9 - Cardiac arrest, cause unspecified Status: Acute Assessment and Plan: At 07:15 the patient was found unresponsive, not breathing, and without a pulse; he was reportedly last seen normal at 06:00. He was defibrillated for VFib in the field and received 4 rounds of epinephrine with eventual return of spontaneous circulation. Etiology of the cardiac arrest is not entirely clear at this juncture. He has a known nonischemic cardiomyopathy, possible dysrhythmia though he does have an ICD and device is being interrogated. CTA of the chest showed segmental and subsegmental pulmonary emboli which appear small and are not likely the main reason for the arrest. He has chronic hypercarbic respiratory failure and he apparently has not been using his CPAP so it may have been a primary respiratory arrest. Troponins have elevated but not significantly so and EKG does not appear to be consistent with STEMI. Echocardiogram is being done at the time of my evaluation and is pending. Cardiology has been consulted and their input is greatly appreciated. 05/21/2022 interval history: s/p PEA cardiac arrest and not sure along patient was down before he was resuscitated, patient remains intubated, CT scan of head and EEG concerning of anoxic brain injury, patient has has PE, prognosis is poor, intesnsivist spoke with patient , children and other family member, patient is now DNR and if there is no improvement, family may withdraw care. patient is seen by cytology supervisor and apparel sales associate and appreciate. (2) Acute and chronic respiratory failure: Code(s): J96.20 - Acute and chronic respiratory failure, unspecified whether with hypoxia or hypercapnia Status: Acute Assessment and Plan: Secondary to cardiac arrest though possibly he had a primary respiratory arrest leading to cardiac arrest, unclear at this time. It is my understanding of the patient has not been wearing his CPAP recently. Imaging today shows moderate pleural effusions as well as findings suggestive of pneumonia. He is currently intubated on mechanical ventilation which is being managed per Dr. Acosta. (3) Shock: Code(s): R57.9 - Shock, unspecified Status: Acute Assessment and Plan: May be septic or cardiogenic shock, or a combination of both. Currently requiring low-dose Levophed. Echo pending. (4) Sepsis: Code(s): A41.9 - Sepsis, unspecified organism Status: Acute Assessment and Plan: Patient presents with a sepsis picture with possible source to include pneumonia, sinusitis, proctitis, or osteomyelitis of a sacral decubitus ulcer. Continue empiric vancomycin and imipenem pending blood cultures. (5) Pulmonary embolism: Code(s): I26.99 - Other pulmonary embolism without acute cor pulmonale Status: Acute Assessment and Plan: He is already anticoagulated with a supratherapeutic INR and as such the decision has been made to not initiate tPA as the risks of bleeding seem to outweigh the benefits at this time. Lower extremity venous Doppler ultrasounds ordered to evaluate for possible DVT. (6) Acute on chronic combined systolic and diastolic CHF (congestive heart failure): Code(s): I50.43 - Acute on chronic combined systolic (congestive) and diastolic (congestive) heart failure Status: Acute Assessment and Plan: Unable to be diuresed at this time. (7) Nonischemic cardiomyopathy: Code(s): I42.8 - Other cardiomyopathies Status: Acute Assessment and Plan: Interrogate AICD. Resume CHF medications once stable. (8) Persistent atrial fibrillation: Code(s): I48.19 - Other persistent atrial fibrillation Status: Acute Assessment and Plan: Rate controlled. Continue digoxin and amiodarone. 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
[2022-05-21 15:09] LABS: Glucose Point of Care 103 mg/dl (65-105)
[2022-05-21] MEDS: WARFARIN (*PBKC) 5 MG TABLET PO (17:05)
[2022-05-21 17:25] LABS: Glucose Point of Care 109 mg/dl (65-105)
[2022-05-21 21:00] LABS: Glucose Point of Care 135 mg/dl (65-105)
[2022-05-21 22:17] LABS: INR 1.7; Prothrombin Time 19.3 Seconds (11.1-14.7)
[2022-05-21 23:19] LABS: Vancomycin Trough 39.9 ug/mL (10.0-20.0)
[2022-05-22] VITALS (27 sets, daily range): BP systolic 125–142; BP diastolic 63–88; PULSE 56–82; RESP 1–21; TEMP 36.9–37.8; O2SAT 88–100
[2022-05-22 01:03] LABS: Glucose Point of Care 131 mg/dl (65-105)
[2022-05-22] MEDS: METOCLOPRAMIDE HCL 10 MG/10 ML SOLN UDC FEED TUBE ×4 (02:07→19:50)
[2022-05-22 05:11] LABS: Glucose Point of Care 137 mg/dl (65-105)
[2022-05-22 05:26] LABS: Basophils Percent Auto 0.5 % (0.2-1.2); Eosinophils Absolute Auto 0.2 K/mm3 (0-0.3); Eosinophils Percent Auto 4.8 % (0-4.4); Hematocrit 28.4 % (42.0-52.0); Hemoglobin 8.4 g/dL (14.0-18.0); Immature Granulocyte Absolute 0.02 K/mm3 (0.00-0.031); Immature Granulocyte Percent A 0.5 % (0-0.5); Immature Platelet Fraction Pct 8.8 % (0.9-11.2); Lymphocytes Absolute Auto 0.73 K/mm3 (0.9-3.2); Lymphocytes Percent Auto 17.4 % (18.3-44.2); Mean Corpuscular HGB Conc 29.6 g/dl (32-36); Mean Corpuscular Hemoglobin 26.9 pg (26-34); Mean Platelet Volume 11.5 fl (7.4-10.4); Monocytes Absolute Auto 0.8 K/mm3 (0.1-0.6); Monocytes Percent Auto 19.8 % (2.6-8.5); Neutrophils Absolute Auto 2.4 K/mm3 (1.3-6.7); Platelet Count Result 101 k/mm3 (150-375); Red Blood Count 3.12 M/mm3 (4.6-6.20); Red Cell Distribution Width 19.4 % (11.5-14.5); White Blood Count 4.2 K/mm3 (4.5-10.0)
[2022-05-22 05:34] LABS: Alanine Aminotransferase 488 U/L (6-50); Albumin Level 3.7 g/dL (3.5-5.1); Alkaline Phosphatase 102 U/L (38-126); Anion Gap 10 mmol/L (8-16); Aspartate Amino Transferase 234 U/L (17-59); Bilirubin,Total 0.9 mg/dL (0.2-1.3); Blood Urea Nitrogen 67 mg/dL (9-20); Calcium 8.9 mg/dL (8.4-10.2); Carbon Dioxide 37 mmol/L (22-30); Chloride 95 mmol/L (98-107); Estimated CRCL calculation 25 ml/min; Estimated Glomerular Filt Rate 15; Glucose 134 mg/dL (65-110); Magnesium 2.1 mg/dL (1.6-2.3); Phosphorus 3.9 mg/dL (2.5-4.5); Potassium 3.9 mmol/L (3.4-5.0); Sodium 142 mmol/L (137-145)
[2022-05-22 05:35] LABS: INR 1.8; Prothrombin Time 20.2 Seconds (11.1-14.7)
[2022-05-22 05:39] LABS: Anisocytosis 2+ (NORMAL); Hypochromasia 1+ (NORMAL); Ovalocytes 1+ (NORMAL); Platelet Estimate Decreased (Adequate)
[2022-05-22 05:40] LABS: Schistocytes None Seen (NORMAL)
[2022-05-22] MEDS: ALBUMIN HUMAN 25% 25 GM/100 ML 100 ML IVPB ×3 (05:48→17:25)
[2022-05-22] MEDS: CENTRAL LINE FLUSH 10 ML IV PUSH ×4 (05:50→19:56)
[2022-05-22 05:59] LABS: Alveolar/Arterial O2 Gradient 242.2 mmHg; Base Excess ABG 14.3 mEq/l (+/-2.0); Carboxyhemoglobin 0.3 % THb (0-2.0); Fractional Inspired Oxygen 50 %; HCO3 ABG 39.7 mEq/l (22.0-26.0); Methemoglobin ABG 0.1 %THb (0-1.5); Oxygen Content ABG 11.6 %vol (16.0-22.0); Oxygen Saturation ABG 88.4 % (95.0-100.0); PCO2 ABG 55.1 mmHg (35.0-45.0); PO2 ABG 52.3 mmHg (80.0-100.0); PO2 FiO2 Ratio Arterial Blood 1.05 %; Total Hemoglobin 9.6 g/dL (12.0-18.0); pH ABG 7.476 (7.350-7.450)
[2022-05-22 06:00] LABS: Oxyhemoglobin 85.6 % THb (90.0-100.0); Site Drawn RIGHT RADIAL
[2022-05-22 06:01] LABS: Arterial Blood Gas PEEP 10 cmH2O; Arterial Blood Gas Tidal Volume 380 ml; Arterial Blood Gas Vent Mode CMV; Arterial Blood Gas Ventilator rate 14 /MIN; Device VENTILATOR; Modified Allen's Test Unable to perform
--- NOTE | 2022-05-22 08:30 | WPDINTPN ---
Progress Note: A&P Assessment and Plan (1) Acute respiratory failure: Code(s): J96.00 - Acute respiratory failure, unspecified whether with hypoxia or hypercapnia Status: Acute Assessment and Plan: Acute Respiratory failure secondary to cardiac arrest, extensive bilateral consolidation could be combination of pulmonary edema and/or pneumonia. Pneumonia could be aspiration, moderate pleural effusions Patient also has PE and right lower lobe segmental and subsegmental arteries Patient is already anticoagulated Now intubated and mechanical ventilation Vent settings reviewed-currently on 60% FiO2 and [address] reviewed Continue full mechanical ventilation support to prevent hypoxemia/hypercarbia and end organ damage. Low tidal volume ventilation strategy to prevent volutrauma Bronchodilators Weaning will depend on his neurological improvement Lasix IV ordered (2) Cardiac arrest: Code(s): I46.9 - Cardiac arrest, cause unspecified Status: Acute Assessment and Plan: Patient was found unresponsive and initial rhythm was asystole. Later patient went into VFib. He had a prolonged time time and received 4 doses of epinephrine and DC defibrillation Patient does have AICD which makes me wonder whether patient actually was in VFib Specific Etiology not clear as patient has multiple possible etiologies for his cardiac arrest Patient does have history of cardiomyopathy, AFib He CTA shows right lower lobe segmental and subsegmental PE. Patient already on anticoagulation. I considered thrombolytics considering patient's cardiac arrest but this PE appears to be small and not massive. He is on only few mics of Levophed and hemodynamically stable. He is already anticoagulated with supratherapeutic INR which is another relative contraindication. He has had falls at half-way as per family. Stat echocardiogram was performed in the ER and I reviewed prelim report with Dr. Cueto. His RV does not show signs of acute right failure. He does have pulmonary hypertension and has global hypokinesia with EF of 30-35% suggesting against PE to be the hemodynamic issue. At this point I believe the risks from potential bleeding from tPA are higher than the benefit he is going to receive from tPA He also has history of sleep apnea and history of hypercarbic respiratory failure and has not been using his CPAP or BiPAP for many days Serial troponins done and showed gradual increased Cardiology following and does not believe it to be a acute coronary event Echocardiogram Summary ? 1. Moderate left ventricular enlargement with moderate eccentric left ventricular hypertrophy.? Severe global hypokinesis with a calculated ejection fraction of 32% (visually 30-35 %).? Diastolic function is abnormal.? No segmental wall motion abnormalities. ? 2. Left atrial chamber dimension is moderately enlarged. ? 3. Right atrial chamber dimension is mildly enlarged. ? 4. There is mild tricuspid valve regurgitation. ? 5. Moderate pulmonary hypertension, estimated pulmonary arterial systo ic pressure is 62 mmHg. ? 6. Dilated inferior vena cava with >50% collapse upon inspiration consistent with elevated right atrial pressure, 15 mmHg. ? 7. Right ventricular size and systolic function is normal. ? 8. Somewhat technically difficult study; definity echo contrast used. ? 9. Indeterminate rhythm, may be atrial fibrillation. (3) Pulmonary embolism: Code(s): I26.99 - Other pulmonary embolism without acute cor pulmonale Status: Acute Assessment and Plan: CTA shows right lower lobe segmental and sub segmental pulmonary artery embolism Patient does have a history of DVT is on anticoagulation Lower extremity Doppler showed Extensive deep venous thrombosis throughout the left lower limb, both above and [id number]. Currently INR is sub therapeutic. Discussed with pharmacy. I will transition him to Dilia reports the patient had serious reaction t
[2022-05-22] MEDS: FUROSEMIDE INJ 100 MG/10 ML VIAL 80 MG IV PUSH (09:03)
[2022-05-22] MEDS: polyethylene glycoL 3350 17 GM POWD.PACK PO (09:04)
[2022-05-22] MEDS: MINERAL OIL/WHITE PETROLATUM OINTMENT 1 APPLIC EACH EYE ×2 (09:05→19:55)
[2022-05-22] MEDS: AMIODARONE HCL 200 MG TABLET PO (09:05)
[2022-05-22] MEDS: PANTOPRAZOLE SODIUM IV 40 MG VIAL IV PUSH (09:05)
[2022-05-22] MEDS: carvediloL 3.125 MG TABLET PO ×2 (09:05→19:55)
[2022-05-22] MEDS: levETIRAcetam 1000MG/NACL100ML 1,000 MG/100 ML BAG 400 MG IVPB ×2 (09:11→20:37)
[2022-05-22 10:19] LABS: Glucose Point of Care 157 mg/dl (65-105)
--- NOTE | 2022-05-22 11:49 | P.PNNP_ITS ---
Progress Note: A&P Assessment and Plan (1) Acute kidney injury: Code(s): N17.9 - Acute kidney failure, unspecified Status: Acute Assessment and Plan: * most likely secondary to cardiac arrest and shock * has likely progressed to ATN * urine output continues to decline * no improvement in UOP with trial of IVFs either * no critical electrolytes but volume status already an issue * evaluation to date: * renal ultrasound okay * CPK normal * his creatinine continues to rise. * Urine output is low. * Discussed with Dr. Castro. He was given some diuretics today to see if we could improve urine output. * Family does not want to do dialysis. (2) Cardiac arrest: Code(s): I46.9 - Cardiac arrest, cause unspecified Status: Acute Assessment and Plan: * as noted by admission history * prolonged down time suspected * etiology not clear with multiple possibilities: * hypercarbia respiratory failure due to lack of CPAP/BiPAP use * PE (although small without significant hemodynamic insult) * cardiomyopathy * cardiac event * Cardiology following * Echo results noted (3) Sepsis: Code(s): A41.9 - Sepsis, unspecified organism Status: Acute Assessment and Plan: * multiple possible sources: * pneumonia (CAP versus aspiration) * sinusitis * proctitis * sacral debubitus ulcer and chronic osteomyelitis * Staph grew from 1/2 bottles. ? Contaminant * was briefly on vasopressors but weaned off * on broad spectrum antibiotics (4) Acute respiratory failure: Code(s): J96.00 - Acute respiratory failure, unspecified whether with hypoxia or hypercapnia Status: Acute Assessment and Plan: * due to cardiac arrest * however, complicated by possible pneumonia and pulmonary edema/pleural effusions as well as pulmonary embolus as noted by admission imaging * cannot fully discount aspiration/aspiration pneumonia as well * on full ventilator support at this time (5) Pulmonary embolism: Code(s): I26.99 - Other pulmonary embolism without acute cor pulmonale Status: Acute Assessment and Plan: * CTA demonstrated right lower lobe segmental and subsegmental pulmonary artery embolism * LE duplex also with extensive DVTs as well * on anticoagulation (6) Pneumonia: Code(s): J18.9 - Pneumonia, unspecified organism Status: Acute Assessment and Plan: * bilateral consolidation on CTA suspicion for pulmonary edema and pneumonia * aspiration milan concern since he was found unresponsive * on Imipenem (7) CHF (congestive heart failure): Code(s): I50.9 - Heart failure, unspecified Status: Acute Assessment and Plan: * known history of CHF/cardiomyopathy * recent Echo noted * evidence of fluid overload currently. he received Lasix today (8) Hypoxic brain damage: Code(s): G93.1 - Anoxic brain damage, not elsewhere classified Status: Acute Assessment and Plan: * suspected based on events leading to admssion/hospitalization * Head CT results noted * unresponsive * Neurology following (9) Diabetes: Code(s): E11.9 - Type 2 diabetes mellitus without complications Status: Acute Assessment and Plan: * on accuchecks and SSI per hospitalist/production cook. Subjective Date/time seen: 05/22/22 11:49 Interval history: Johnnie is on the ventilator in the ICU. He is not on pressors or sedativ
--- NOTE | 2022-05-22 11:49 | PM.PNNEP ---
Progress Note: A&P Assessment and Plan (1) Acute kidney injury: Code(s): N17.9 - Acute kidney failure, unspecified Status: Acute Assessment and Plan: most likely secondary to cardiac arrest and shock has likely progressed to ATN urine output continues to decline no improvement in UOP with trial of IVFs either no critical electrolytes but volume status already an issue evaluation to date: renal ultrasound okay CPK normal his creatinine continues to rise. Urine output is low. Discussed with Dr. Castro. He was given some diuretics today to see if we could improve urine output. Family does not want to do dialysis. (2) Cardiac arrest: Code(s): I46.9 - Cardiac arrest, cause unspecified Status: Acute Assessment and Plan: as noted by admission history prolonged down time suspected etiology not clear with multiple possibilities: hypercarbia respiratory failure due to lack of CPAP/BiPAP use PE (although small without significant hemodynamic insult) cardiomyopathy cardiac event Cardiology following Echo results noted (3) Sepsis: Code(s): A41.9 - Sepsis, unspecified organism Status: Acute Assessment and Plan: multiple possible sources: pneumonia (CAP versus aspiration) sinusitis proctitis sacral debubitus ulcer and chronic osteomyelitis Staph grew from 1/2 bottles. ? Contaminant was briefly on vasopressors but weaned off on broad spectrum antibiotics (4) Acute respiratory failure: Code(s): J96.00 - Acute respiratory failure, unspecified whether with hypoxia or hypercapnia Status: Acute Assessment and Plan: due to cardiac arrest however, complicated by possible pneumonia and pulmonary edema/pleural effusions as well as pulmonary embolus as noted by admission imaging cannot fully discount aspiration/aspiration pneumonia as well on full ventilator support at this time (5) Pulmonary embolism: Code(s): I26.99 - Other pulmonary embolism without acute cor pulmonale Status: Acute Assessment and Plan: CTA demonstrated right lower lobe segmental and subsegmental pulmonary artery embolism LE duplex also with extensive DVTs as well on anticoagulation (6) Pneumonia: Code(s): J18.9 - Pneumonia, unspecified organism Status: Acute Assessment and Plan: bilateral consolidation on CTA suspicion for pulmonary edema and pneumonia aspiration milan concern since he was found unresponsive on Imipenem (7) CHF (congestive heart failure): Code(s): I50.9 - Heart failure, unspecified Status: Acute Assessment and Plan: known history of CHF/cardiomyopathy recent Echo noted evidence of fluid overload currently. he received Lasix today (8) Hypoxic brain damage: Code(s): G93.1 - Anoxic brain damage, not elsewhere classified Status: Acute Assessment and Plan: suspected based on events leading to admssion/hospitalization Head CT results noted unresponsive Neurology following (9) Diabetes: Code(s): E11.9 - Type 2 diabetes mellitus without complications Status: Acute Assessment and Plan: on accuchecks and SSI per hospitalist/cloth worker. Subjective Date/time seen: 05/22/22 11:49 Interval history: Johnnie is on the ventilator in the ICU. He is not on pressors or sedatives. He is on Keppra drip. Exam Narrative: General: middle aged AA male intubated and on mechanical ventilation Heart: IRRR, normal S1 and S2; no rub Lungs: coarse and decreased at bases Abdomen: soft, nontender, mild distension; decreased bowel sounds Extremities: 2+ edema Skin: No rash Neuro: no response Objective Data Vital Signs Vital Signs: Vital Signs - 24 hr 05/21/22 12:00 05/21/22 14:00 05/21/22 12:00 Temperature 37.2 C 37.2 C Pulse Rate 67 67 Respiratory Rate 14 14 Blood Pressure 13
[2022-05-22 12:44] LABS: Glucose Point of Care 129 mg/dl (65-105)
--- NOTE | 2022-05-22 14:01 | PM.IMPN ---
Progress Note: A&P Assessment and Plan (1) Cardiac arrest: Code(s): I46.9 - Cardiac arrest, cause unspecified Status: Acute Assessment and Plan: At 07:15 the patient was found unresponsive, not breathing, and without a pulse; he was reportedly last seen normal at 06:00. He was defibrillated for VFib in the field and received 4 rounds of epinephrine with eventual return of spontaneous circulation. Etiology of the cardiac arrest is not entirely clear at this juncture. He has a known nonischemic cardiomyopathy, possible dysrhythmia though he does have an ICD and device is being interrogated. CTA of the chest showed segmental and subsegmental pulmonary emboli which appear small and are not likely the main reason for the arrest. He has chronic hypercarbic respiratory failure and he apparently has not been using his CPAP so it may have been a primary respiratory arrest. Troponins have elevated but not significantly so and EKG does not appear to be consistent with STEMI. Echocardiogram is being done at the time of my evaluation and is pending. Cardiology has been consulted and their input is greatly appreciated. 05/22/2022 interval history: s/p PEA cardiac arrest and not sure along patient was down before he was resuscitated, patient remains intubated, CT scan of head and EEG concerning of anoxic brain injury, patient has has PE, prognosis is poor, intesnsivist spoke with patient , children and other family member, patient is now DNR and if there is no improvement, family may withdraw care. however family is undecided, patient is seen by casino enforcement agent and filter press tender and appreciate. (2) Acute and chronic respiratory failure: Code(s): J96.20 - Acute and chronic respiratory failure, unspecified whether with hypoxia or hypercapnia Status: Acute Assessment and Plan: Secondary to cardiac arrest though possibly he had a primary respiratory arrest leading to cardiac arrest, unclear at this time. It is my understanding of the patient has not been wearing his CPAP recently. Imaging today shows moderate pleural effusions as well as findings suggestive of pneumonia. He is currently intubated on mechanical ventilation which is being managed per Dr. Acosta. (3) Shock: Code(s): R57.9 - Shock, unspecified Status: Acute Assessment and Plan: May be septic or cardiogenic shock, or a combination of both. Currently requiring low-dose Levophed. Echo pending. (4) Sepsis: Code(s): A41.9 - Sepsis, unspecified organism Status: Acute Assessment and Plan: Patient presents with a sepsis picture with possible source to include pneumonia, sinusitis, proctitis, or osteomyelitis of a sacral decubitus ulcer. Continue empiric vancomycin and imipenem pending blood cultures. (5) Pulmonary embolism: Code(s): I26.99 - Other pulmonary embolism without acute cor pulmonale Status: Acute Assessment and Plan: He is already anticoagulated with a supratherapeutic INR and as such the decision has been made to not initiate tPA as the risks of bleeding seem to outweigh the benefits at this time. Lower extremity venous Doppler ultrasounds ordered to evaluate for possible DVT. (6) Acute on chronic combined systolic and diastolic CHF (congestive heart failure): Code(s): I50.43 - Acute on chronic combined systolic (congestive) and diastolic (congestive) heart failure Status: Acute Assessment and Plan: Unable to be diuresed at this time. (7) Nonischemic cardiomyopathy: Code(s): I42.8 - Other cardiomyopathies Status: Acute Assessment and Plan: Interrogate AICD. Resume CHF medications once stable. (8) Persistent atrial fibrillation: Code(s): I48.19 - Other persistent atrial fibrillation Status: Acute Assessment and Plan: Rate controlled. Continue digoxin and amiodarone. (9) Chronic anticoagulation: Code(s): Z79.01 - Long te
[2022-05-22 16:12] LABS: Glucose Point of Care 133 mg/dl (65-105)
[2022-05-22] MEDS: RIVAROXABAN 15 MG TABLET PO (16:25)
[2022-05-22] MEDS: SILVERGEL (ELTA) 45 ML 1 APPLIC TOPICAL (17:08)
[2022-05-22 20:08] LABS: Glucose Point of Care 151 mg/dl (65-105)
--- NOTE | 2022-05-22 22:48 | PC.NURSE ---
Around 2200 I noticed pt to become for tachycardia in the 130's. Patient was already tachy at the beginning of my shift in the low 100's. I went down and the Levo drip and pt was still tachy. I called the Hospitalist Liliana and she agreed to place an order for Tylenol 1g, IV, Q6 hrs, PRN. Pt is now receiving Tylenol at 2247
[2022-05-23] VITALS (26 sets, daily range): BP systolic 105–152; BP diastolic 57–99; PULSE 50–67; RESP 12–19; TEMP 35.8–36.8; O2SAT 91–100
[2022-05-23 00:14] LABS: Glucose Point of Care 153 mg/dl (65-105)
[2022-05-23] MEDS: METOCLOPRAMIDE HCL 10 MG/10 ML SOLN UDC FEED TUBE ×4 (02:38→20:01)
[2022-05-23 04:57] LABS: Basophils Percent Auto 0.3 % (0.2-1.2); Eosinophils Absolute Auto 0.2 K/mm3 (0-0.3); Hematocrit 26.8 % (42.0-52.0); Hemoglobin 7.8 g/dL (14.0-18.0); Immature Granulocyte Absolute 0.01 K/mm3 (0.00-0.031); Immature Granulocyte Percent A 0.3 % (0-0.5); Immature Platelet Fraction Pct 10.4 % (0.9-11.2); Lymphocytes Absolute Auto 0.69 K/mm3 (0.9-3.2); Lymphocytes Percent Auto 20.2 % (18.3-44.2); Mean Corpuscular HGB Conc 29.1 g/dl (32-36); Mean Corpuscular Hemoglobin 26.6 pg (26-34); Mean Corpuscular Volume 91.5 fl (80-100); Mean Platelet Volume 12.8 fl (7.4-10.4); Monocytes Absolute Auto 0.6 K/mm3 (0.1-0.6); Neutrophils Absolute Auto 1.9 K/mm3 (1.3-6.7); Neutrophils Percent Auto 55.2 % (45.5-73.1); Platelet Count Result 88 k/mm3 (150-375); Red Blood Count 2.93 M/mm3 (4.6-6.20); Red Cell Distribution Width 19.4 % (11.5-14.5); White Blood Count 3.4 K/mm3 (4.5-10.0)
[2022-05-23] MEDS: ALBUMIN HUMAN 25% 25 GM/100 ML 100 ML IVPB ×4 (05:04→17:21)
[2022-05-23 05:05] LABS: Alanine Aminotransferase 261 U/L (6-50); Albumin Level 3.9 g/dL (3.5-5.1); Alkaline Phosphatase 109 U/L (38-126); Anion Gap 11 mmol/L (8-16); Aspartate Amino Transferase 121 U/L (17-59); Bilirubin,Total 0.9 mg/dL (0.2-1.3); Blood Urea Nitrogen 74 mg/dL (9-20); Calcium 9.2 mg/dL (8.4-10.2); Carbon Dioxide 35 mmol/L (22-30); Chloride 96 mmol/L (98-107); Estimated CRCL calculation 21 ml/min; Estimated Glomerular Filt Rate 12; Glucose 141 mg/dL (65-110); Magnesium 2.2 mg/dL (1.6-2.3); Phosphorus 4.1 mg/dL (2.5-4.5); Potassium 3.7 mmol/L (3.4-5.0); Sodium 142 mmol/L (137-145)
[2022-05-23] MEDS: CENTRAL LINE FLUSH 10 ML IV PUSH ×4 (05:06→21:43)
[2022-05-23 05:10] LABS: Alveolar/Arterial O2 Gradient 290.6 mmHg; Base Excess ABG 12.6 mEq/l (+/-2.0); Carboxyhemoglobin 0.2 % THb (0-2.0); Fractional Inspired Oxygen 60 %; HCO3 ABG 37.8 mEq/l (22.0-26.0); Methemoglobin ABG 0.2 %THb (0-1.5); Oxygen Content ABG 13.4 %vol (16.0-22.0); Oxygen Saturation ABG 96.2 % (95.0-100.0); Oxyhemoglobin 93.9 % THb (90.0-100.0); PCO2 ABG 52.5 mmHg (35.0-45.0); PO2 ABG 79.5 mmHg (80.0-100.0); PO2 FiO2 Ratio Arterial Blood 1.33 %; Reduced Hemoglobin 5.7 %THb (0-5.0); Total Hemoglobin 10.1 g/dL (12.0-18.0); pH ABG 7.475 (7.350-7.450)
[2022-05-23 05:11] LABS: Glucose Point of Care 133 mg/dl (65-105)
[2022-05-23 05:12] LABS: Device VENTILATOR; Modified Allen's Test Unable to perform; Site Drawn RIGHT RADIAL
[2022-05-23 05:13] LABS: Arterial Blood Gas PEEP 10 cmH2O; Arterial Blood Gas Tidal Volume 350 ml; Arterial Blood Gas Vent Mode CMV; Arterial Blood Gas Ventilator rate 14 /MIN
[2022-05-23 05:21] LABS: Hypochromasia 2+ (NORMAL); Platelet Estimate Decreased (Adequate)
[2022-05-23 05:22] LABS: Macrocytosis 1+ (NORMAL)
[2022-05-23 05:26] LABS: Vancomycin Random 32.9 ug/mL (10-20)
[2022-05-23 05:31] LABS: INR 2.4; Prothrombin Time 25.6 Seconds (11.1-14.7)
[2022-05-23] MEDS: PANTOPRAZOLE SODIUM IV 40 MG VIAL IV PUSH (08:23)
[2022-05-23] MEDS: MINERAL OIL/WHITE PETROLATUM OINTMENT 1 APPLIC EACH EYE ×2 (08:23→20:01)
[2022-05-23] MEDS: polyethylene glycoL 3350 17 GM POWD.PACK PO (08:23)
[2022-05-23] MEDS: carvediloL 3.125 MG TABLET PO ×2 (08:24→20:01)
[2022-05-23] MEDS: levETIRAcetam 1000MG/NACL100ML 1,000 MG/100 ML BAG 400 MG IVPB ×2 (08:24→20:02)
[2022-05-23] MEDS: AMIODARONE HCL 200 MG TABLET PO (08:24)
--- NOTE | 2022-05-23 08:24 | WPDINTPN ---
Progress Note: A&P Assessment and Plan (1) Acute respiratory failure: Code(s): J96.00 - Acute respiratory failure, unspecified whether with hypoxia or hypercapnia Status: Acute Assessment and Plan: Acute Respiratory failure secondary to cardiac arrest, extensive bilateral consolidation could be combination of pulmonary edema and/or pneumonia. Pneumonia could be aspiration, moderate pleural effusions Patient also has PE and right lower lobe segmental and subsegmental arteries Patient is already anticoagulated Now intubated and mechanical ventilation Vent settings reviewed-currently on 60% FiO2 and [address] reviewed Continue full mechanical ventilation support to prevent hypoxemia/hypercarbia and end organ damage. Low tidal volume ventilation strategy to prevent volutrauma Bronchodilators Weaning will depend on his neurological improvement Lasix IV ordered (2) Cardiac arrest: Code(s): I46.9 - Cardiac arrest, cause unspecified Status: Acute Assessment and Plan: Patient was found unresponsive and initial rhythm was asystole. Later patient went into VFib. He had a prolonged time time and received 4 doses of epinephrine and DC defibrillation Patient does have AICD which makes me wonder whether patient actually was in VFib Specific Etiology not clear as patient has multiple possible etiologies for his cardiac arrest Patient does have history of cardiomyopathy, AFib He CTA shows right lower lobe segmental and subsegmental PE. Patient already on anticoagulation. I considered thrombolytics considering patient's cardiac arrest but this PE appears to be small and not massive. He is on only few mics of Levophed and hemodynamically stable. He is already anticoagulated with supratherapeutic INR which is another relative contraindication. He has had falls at residential as per family. Stat echocardiogram was performed in the ER and I reviewed prelim report with Dr. Cueto. His RV does not show signs of acute right failure. He does have pulmonary hypertension and has global hypokinesia with EF of 30-35% suggesting against PE to be the hemodynamic issue. At this point I believe the risks from potential bleeding from tPA are higher than the benefit he is going to receive from tPA He also has history of sleep apnea and history of hypercarbic respiratory failure and has not been using his CPAP or BiPAP for many days Serial troponins done and showed gradual increased Cardiology following and does not believe it to be a acute coronary event Echocardiogram Summary ? 1. Moderate left ventricular enlargement with moderate eccentric left ventricular hypertrophy.? Severe global hypokinesis with a calculated ejection fraction of 32% (visually 30-35 %).? Diastolic function is abnormal.? No segmental wall motion abnormalities. ? 2. Left atrial chamber dimension is moderately enlarged. ? 3. Right atrial chamber dimension is mildly enlarged. ? 4. There is mild tricuspid valve regurgitation. ? 5. Moderate pulmonary hypertension, estimated pulmonary arterial systo ic pressure is 62 mmHg. ? 6. Dilated inferior vena cava with >50% collapse upon inspiration consistent with elevated right atrial pressure, 15 mmHg. ? 7. Right ventricular size and systolic function is normal. ? 8. Somewhat technically difficult study; definity echo contrast used. ? 9. Indeterminate rhythm, may be atrial fibrillation. (3) Pulmonary embolism: Code(s): I26.99 - Other pulmonary embolism without acute cor pulmonale Status: Acute Assessment and Plan: CTA shows right lower lobe segmental and sub segmental pulmonary artery embolism Patient does have a history of DVT is on anticoagulation Lower extremity Doppler showed Extensive deep venous thrombosis throughout the left lower limb, both above and [id number]. INR was sub therapeutic. Discussed with pharmacy and patient was transitioned to tube Xarelto reports the patient had serious reaction
[2022-05-23] MEDS: FUROSEMIDE INJ 100 MG/10 ML VIAL 80 MG IV PUSH (08:25)
--- NOTE | 2022-05-23 09:12 | P.PNCROSS_ITS ---
Event Note Event Note Event Note: Renal function worsening (although did make a little more urine yesterday). An oxic encephalopathy. Family refuses dialysis. Family plans on terminal wean tomorrow. Renal will sign off.
[2022-05-23 12:15] LABS: Glucose Point of Care 143 mg/dl (65-105)
[2022-05-23] MEDS: ALBUTEROL SULFATE NEB 2.5 MG/3 ML INH INHALATION (14:27)
[2022-05-23] MEDS: SILVERGEL (ELTA) 45 ML 1 APPLIC TOPICAL (17:00)
[2022-05-23] MEDS: RIVAROXABAN 15 MG TABLET PO (17:21)
[2022-05-23 17:43] LABS: Glucose Point of Care 129 mg/dl (65-105)
[2022-05-24] VITALS (14 sets, daily range): BP systolic 116–140; BP diastolic 78–100; PULSE 50–60; RESP 13–20; TEMP 35.4–36.8; O2SAT 95–100
[2022-05-24] MEDS: ALBUMIN HUMAN 25% 25 GM/100 ML 100 ML IVPB ×3 (00:01→14:16)
[2022-05-24 00:08] LABS: Glucose Point of Care 132 mg/dl (65-105)
[2022-05-24] MEDS: METOCLOPRAMIDE HCL 10 MG/10 ML SOLN UDC FEED TUBE ×3 (02:23→14:17)
[2022-05-24] MEDS: CENTRAL LINE FLUSH 10 ML IV PUSH ×2 (05:05→14:18)
[2022-05-24 05:15] LABS: Alanine Aminotransferase 146 U/L (6-50); Alkaline Phosphatase 98 U/L (38-126); Anion Gap 13 mmol/L (8-16); Aspartate Amino Transferase 87 U/L (17-59); Bilirubin,Total 1.1 mg/dL (0.2-1.3); Blood Urea Nitrogen 80 mg/dL (9-20); Calcium 9.4 mg/dL (8.4-10.2); Carbon Dioxide 37 mmol/L (22-30); Chloride 95 mmol/L (98-107); Estimated CRCL calculation 19 ml/min; Estimated Glomerular Filt Rate 11; Glucose 134 mg/dL (65-110); Magnesium 2.3 mg/dL (1.6-2.3); Phosphorus 4.6 mg/dL (2.5-4.5); Potassium 3.8 mmol/L (3.4-5.0); Sodium 145 mmol/L (137-145)
[2022-05-24 05:18] LABS: Hematocrit 26.6 % (42.0-52.0); Hemoglobin 7.8 g/dL (14.0-18.0); Immature Platelet Fraction Pct 12.8 % (0.9-11.2); Mean Corpuscular HGB Conc 29.3 g/dl (32-36); Mean Corpuscular Hemoglobin 26.7 pg (26-34); Mean Corpuscular Volume 91.1 fl (80-100); Mean Platelet Volume 12.3 fl (7.4-10.4); Platelet Count Result 91 k/mm3 (150-375); Red Blood Count 2.92 M/mm3 (4.6-6.20); Red Cell Distribution Width 18.9 % (11.5-14.5); White Blood Count 3.3 K/mm3 (4.5-10.0)
[2022-05-24] MEDS: FUROSEMIDE INJ 100 MG/10 ML VIAL 80 MG IV PUSH (08:12)
[2022-05-24] MEDS: levETIRAcetam 1000MG/NACL100ML 1,000 MG/100 ML BAG 400 MG IVPB (08:13)
[2022-05-24] MEDS: SILVERGEL (ELTA) 45 ML 1 APPLIC TOPICAL (08:13)
[2022-05-24] MEDS: polyethylene glycoL 3350 17 GM POWD.PACK PO (08:13)
[2022-05-24] MEDS: MINERAL OIL/WHITE PETROLATUM OINTMENT 1 APPLIC EACH EYE (08:14)
[2022-05-24] MEDS: PANTOPRAZOLE SODIUM IV 40 MG VIAL IV PUSH (08:14)
[2022-05-24] MEDS: carvediloL 3.125 MG TABLET PO (08:29)
[2022-05-24] MEDS: AMIODARONE HCL 200 MG TABLET PO (08:29)
--- NOTE | 2022-05-24 08:56 | WPDINTPN ---
Progress Note: A&P Assessment and Plan (1) Acute respiratory failure: Code(s): J96.00 - Acute respiratory failure, unspecified whether with hypoxia or hypercapnia Status: Acute Assessment and Plan: Acute Respiratory failure secondary to cardiac arrest, extensive bilateral consolidation could be combination of pulmonary edema and/or pneumonia. Pneumonia could be aspiration, moderate pleural effusions Patient also has PE and right lower lobe segmental and subsegmental arteries Patient is already anticoagulated Now intubated and mechanical ventilation Vent settings reviewed-currently on 60% FiO2 and [address] reviewed Continue full mechanical ventilation support to prevent hypoxemia/hypercarbia and end organ damage. Low tidal volume ventilation strategy to prevent volutrauma Bronchodilators Weaning will depend on his neurological improvement Lasix IV ordered (2) Cardiac arrest: Code(s): I46.9 - Cardiac arrest, cause unspecified Status: Acute Assessment and Plan: Patient was found unresponsive and initial rhythm was asystole. Later patient went into VFib. He had a prolonged time time and received 4 doses of epinephrine and DC defibrillation Patient does have AICD which makes me wonder whether patient actually was in VFib Specific Etiology not clear as patient has multiple possible etiologies for his cardiac arrest Patient does have history of cardiomyopathy, AFib He CTA shows right lower lobe segmental and subsegmental PE. Patient already on anticoagulation. I considered thrombolytics considering patient's cardiac arrest but this PE appears to be small and not massive. He is on only few mics of Levophed and hemodynamically stable. He is already anticoagulated with supratherapeutic INR which is another relative contraindication. He has had falls at longterm as per family. Stat echocardiogram was performed in the ER and I reviewed prelim report with Dr. Cueto. His RV does not show signs of acute right failure. He does have pulmonary hypertension and has global hypokinesia with EF of 30-35% suggesting against PE to be the hemodynamic issue. At this point I believe the risks from potential bleeding from tPA are higher than the benefit he is going to receive from tPA He also has history of sleep apnea and history of hypercarbic respiratory failure and has not been using his CPAP or BiPAP for many days Serial troponins done and showed gradual increased Cardiology following and does not believe it to be a acute coronary event Echocardiogram Summary ? 1. Moderate left ventricular enlargement with moderate eccentric left ventricular hypertrophy.? Severe global hypokinesis with a calculated ejection fraction of 32% (visually 30-35 %).? Diastolic function is abnormal.? No segmental wall motion abnormalities. ? 2. Left atrial chamber dimension is moderately enlarged. ? 3. Right atrial chamber dimension is mildly enlarged. ? 4. There is mild tricuspid valve regurgitation. ? 5. Moderate pulmonary hypertension, estimated pulmonary arterial systo ic pressure is 62 mmHg. ? 6. Dilated inferior vena cava with >50% collapse upon inspiration consistent with elevated right atrial pressure, 15 mmHg. ? 7. Right ventricular size and systolic function is normal. ? 8. Somewhat technically difficult study; definity echo contrast used. ? 9. Indeterminate rhythm, may be atrial fibrillation. (3) Pulmonary embolism: Code(s): I26.99 - Other pulmonary embolism without acute cor pulmonale Status: Acute Assessment and Plan: CTA shows right lower lobe segmental and sub segmental pulmonary artery embolism Patient does have a history of DVT is on anticoagulation Lower extremity Doppler showed Extensive deep venous thrombosis throughout the left lower limb, both above and [id number]. INR was sub therapeutic. Discussed with pharmacy and patient was transitioned to per tube Xarelto reports the patient had serious react
--- NOTE | 2022-05-24 11:05 | PCFNICU ---
ICU Rounding Note: Pt current nutrition is Nepro @ 50 ml/h with flushes 30 ml q 4 h. Nutrition recommendation: Continue current tube feeding order Last recorded weight is 162.2 kg. Bowel Motility: No last BM charted Labs Reviewed:BUN 80, Creat 6.4 Meds Noted: No sedation Skin: Stage 3 sacrum, Stage 4 heel Additional Notes: Per MD, comfort care will start today. Dietitian to sign off after comfort care initiated. Consult if nutrition needs arise. Following daily in ICU rounds. Will monitor in ICU rounds and reassessing every Tuesday and Tuesday..
[2022-05-24] MEDS: LORazepam INJ (*CRX) 2 MG/ML VIAL IV PUSH (17:25)
[2022-05-24] MEDS: MORPHINE SULFATE INJ (*CRX) 10 MG/ML AMP 5 MG IV PUSH (17:25)
--- NOTE | 2022-05-24 18:14 | PC.NURSE ---
Patient extubated at 1730, 1742 with family at the bedside.
--- NOTE | 2022-06-07 12:27 | P.DN_ITS ---
Discharge Summary Date and Time Date of : 05/24/22 Time of : 17:43 Provider Pronounced By: jonny lacy rn and kristen ortiz rn Probable Cause of Probable Cause of : Anoxic brain injury, cardiac arrest, acute respiratory failure, acute renal failure Summary Hospital Course: ?56 year old male ?past medical history of diabetes, DVT on warfarin for anticoagulation,? AFib, CHF, cardiomyopathy, hypertension who is a custodial resident who was recently discharged from [facility] on 05/10 after treatment for CHF exacerbation was brought back to the ED after he was found unresponsive and pulseless in custodial. On 05/18 Per EMS report patient was last seen normal at 6:00 a.m. being around check and then on repeat check was found to be unresponsive. EMS found him to be in PEA.? Patient was given epinephrine CPR was started and patient went into VFib and was defibrillated.? Patient went back into PE a and required 3 more dose of epinephrine.? End-tidal CO2 was 99.? He received 4 doses of epinephrine and 1 DC shock.? On arrival patient was in paced slow AFib.? His LMA was removed and patient was intubated in ER.? He was on Levophed infusion for blood pressure His CTA was positive pulmonary embolism, bilateral pneumonia, moderate pleural effusion and he had decubitus ulcer. Intubated and started on broad-spectrum antibiotics. Anticoagulation was continued. Echocardiogram showed EF of 30% of hypertension and global hypokinesia. AFib with treated with amiodarone and digoxin. Head CT on admission suggested hypoxic injury and was started on TTM protocol. Patient was also on vasopressors During the hospital stay patient had worsening of renal function with his acute renal failure progress. He had EEG suggestive of diffuse slowing. Feet CT on 05/21 showed bilateral loss of cortical sulci suggestive of bilateral diffuse cerebral edema. Patient's neurological status did not improve through the hospital stay and he remained unresponsive. I had multiple meetings with patient's and other family members about patient's status, guarded p rognosis and treatment plan. From the very outset she mentioned the patient had a poor quality of life as he was mostly bed-bound for months. He had been in and out of 7 different hospitals and nursing homes that year. For last 3 years he was in a wheelchair. She had made him DNR earlier in the course but wanted to see if he is mental status improved. She did not think patient would want hemodialysis and requested conservative management of his renal failure. As patient's neurological status did not improve despite TTM protocol and him staying off sedation for many days. His EEG and CT scan confirmed presence of anoxic brain injury. Eventually patient's along with other family members decided to continue life support proceed with palliative extubation and comfort care consistent with patient's wishes. Patient was palliatively extubated on the evening of 05/24. He and was pronounced at 5:43 p.m. Additional Data Confirmation of as documented by pronouncing clinician: Pupillary Reflex, Palpable Pulses, Response to Stimuli, Heart Tones and Breath Sounds Name of Provider Notified: dr. jean baptiste, dr. eastman Time Provider Notified: 17:45 Provider Requests Autopsy: No Family Requests Autopsy: No Melter Operator Notified: Yes Date [facility] Notified of : 05/24/22 Time [facility] Notified of : 18:47
== END 2022-05-24 17:43 | disposition expired | DRG 870 ==
LOC: ANHED 08:09 → ANHICU 16:21
PROVIDERS: Internal Medicine; Admitting Provider Chiropractor; Emergency Provider Emergency Medicine; Visit Provider Family Medicine
DX: A41.9 Sepsis, unspecified organism (principal); I26.99 Other pulmonary embolism without acute cor pulmonale; J18.9 Pneumonia, unspecified organism; J96.20 Acute and chronic respiratory failure, unspecified whether with hypoxia or hypercapnia; R65.21 Severe sepsis with septic shock; I50.43 Acute on chronic combined systolic (congestive) and diastolic (congestive) heart failure; N17.0 Acute kidney failure with tubular necrosis; I48.19 Other persistent atrial fibrillation; I42.8 Other cardiomyopathies; M86.68 Other chronic osteomyelitis, other site; I82.412 Acute embolism and thrombosis of left femoral vein; I82.432 Acute embolism and thrombosis of left popliteal vein; I82.442 Acute embolism and thrombosis of left tibial vein; I82.452 Acute embolism and thrombosis of left peroneal vein; G93.40 Encephalopathy, unspecified; Z68.41 Body mass index [BMI] 40.0-44.9, adult; E11.9 Type 2 diabetes mellitus without complications; Z20.822 Contact with and (suspected) exposure to COVID-19; I11.0 Hypertensive heart disease with heart failure; E66.01 Morbid (severe) obesity due to excess calories; Z79.01 Long term (current) use of anticoagulants; G47.33 Obstructive sleep apnea (adult) (pediatric); L89.159 Pressure ulcer of sacral region, unspecified stage; Z66 Do not resuscitate; I46.8 Cardiac arrest due to other underlying condition; I25.2 Old myocardial infarction; Z95.810 Presence of automatic (implantable) cardiac defibrillator; Z82.49 Family history of ischemic heart disease and other diseases of the circulatory system; Z79.899 Other long term (current) drug therapy; Z88.8 Allergy status to other drugs, medicaments and biological substances; Z91.012 Allergy to eggs
CPT/HCPCS: 31500; 36415; 36556; 36600; 70450; 71045; 71275; 74176; 76775; 80053; 80061; 80162; 80202; 81001; 82375; 82550; 82805; 82948; 83050; 83605; 83735; 83880; 84100; 84145; 84484; 85025; 85027; 85055; 85610; 85730; 86850; 86900; 86901; 87040; 87070; 87077; 87086; 87186; 87205; 93005; 93970; 94002; 94003; 94640; 95816; 96365; 96366; 96368; 96375; 96376; 99285; A9270; C1751; C8929; C9113; J0692; J0743; J1940; J1953; J2060; J2270; J2704; J3010; J3370; J3430; J7030; P9045; P9047; Q9957; Q9967; U0003; U0005